=== PATIENT | male | born 1950 | race Caucasian/White ===

== ENCOUNTER 2018-07-16 13:58 | Emergency (ER) | payer OTHER, SELFPAY ==
[2018-07-16 13:59] VITALS: BP 136/82; PULSE 79; RESP 18; TEMP 36.8; O2SAT 98; BMI 31.0
--- NOTE | 2018-07-16 14:22 | RAD_ITS ---
STUDY: X-RAY - LEFT HAND REASON FOR EXAM: Male, 67 years old. History of trauma. TECHNIQUE: 3 view(s) of the hand. COMPARISON: None. FINDINGS: Normal radiocarpal articulation. Normal distal radioulnar joint. Normal visualized carpal bones. Normal carpal articulations Normal carpometacarpal articulation of the thumb. Normal second through fifth carpometacarpal joints. Normal metacarpi. Normal metacarpophalangeal joint of the thumb. Normal interphalangeal joint of the thumb. Normal proximal and distal phalanges of the thumb. Normal metacarpophalangeal joints of the second through fifth fingers. Flexion deformity of the distal interphalangeal joint of the third digit. Comminuted nondisplaced fracture of the distal aspect of the proximal phalanx of the index finger. Comminuted fracture involving the mid and distal portion of the proximal phalanx of the third digit. Diffuse soft tissue swelling. RAD/Hand Min 3 Views IMPRESSION: Comment fracture of distal portion of the proximal phalanx of the index finger as well as the mid and distal portion of the proximal phalanx of the third digit. Flexion deformity of the distal interphalangeal joint of the third digit. Diffuse soft tissue swelling. Electronically Signed: Puma Zafar MD at 14:59 EST Tel [phone], Service support ,
[2018-07-16] MEDS: Diphth,Pertuss(Acell),Tet Vac 0.5 ML Vial IM (15:00)
[2018-07-16] MEDS: HYDROmorphone 1 MG/ML Syringe SC (15:00)
--- NOTE | 2018-07-16 15:45 | ED.RN ---
ERNESTO CALLED FROM PT' EMPLOYER. 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 STATES THEY WILL SEND A RIDE TO AUDIO EXPERIENCE EXPERT PT FROM ED WHEN READY. 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
--- NOTE | 2018-07-16 16:03 | ED.VISSUMM ---
- ER Visit Summary Date of Service: 07/16/18 Chief Complaint: Left hand injury History of Present Illness: The patient is a 67 M who was at work today. He is right-hand dominant. A 500 pound rack fell on his left hand. He complains of pain and lacerations to his left second and third digits. Unsure of tetanus status. Physical Examination: Patient has diffuse edema to his left second and third digits with deformity to the third digit. Two-point discrimination intact distally and capillary refill intact distally. He has 2 lacerations to his index finger, 1 cm laceration to the radial side of the proximal phalanx and a 2 cm laceration to the ulnar side of his proximal phalanx. There appears to be an extensor tendon injury and the ulnar side appears to be an open fracture. Test Results: X-rays show comminuted fractures of the second and third digits. Please see separate report. Emergency Department Course and Treatment: Tetanus updated. The patient was treated with Dilaudid. Digital block performed of the second and third digits. Third digit was able to be reduced somewhat and does not seem to be entrapped. Second digit lacerations were repaired with simple interrupted sutures, 3 on the radial side, and 4 on the ulnar side. He will need surgical care. I discussed with Dr. Castano felt that the patient would be better served at a tertiary care center. I spoke with Dr. Desai. He advised that he would like the patient seen today and recommend that the patient go to [facility]. Patient will be transferred by ambulance. He was accepted by the ED physician. He was treated with ancef. Treatment Plan: As above Disposition: Transfer Impression: 1. Left second and third digit fractures 2. Left second digit lacerations, 3 cm total This note was generated with [employer] dictation software. It may contain incorrect words, spelling, and punctuation that were not noted in review of the chart prior to signing ED Disposition - Plan for ED Patient: Chief Complaint: Laceration Instructions: ED Laceration Hand Prescriptions: Oxycodone HCl/Acetaminophen [Percocet 5/325] 1 tab PO Q6H PRN PRN 3 Days #12 tab PRN Reason: Pain Cephalexin [Keflex] 500 mg PO Q6 #40 cap Referrals: Raymond Mancera Jr., MD [NON-STAFF] -
--- NOTE | 2018-07-16 16:08 | ED.DEP ---
ED Disposition - Plan for ED Patient: Chief Complaint: Laceration Instructions: ED Laceration Hand Prescriptions: Oxycodone HCl/Acetaminophen [Percocet 5/325] 1 tab PO Q6H PRN PRN 3 Days #12 tab PRN Reason: Pain Cephalexin [Keflex] 500 mg PO Q6 #40 cap Referrals: Raymond Mancera Jr., MD [NON-STAFF] -
--- NOTE | 2018-07-16 16:32 | NURSING ---
ACCEPTED AT [facility]
--- NOTE | 2018-07-16 16:34 | ED.RN ---
Called [facility] to verify testing to be done on ED r/t pt being transferred. Rep is going to call after finishing test at [facility] to verify if pt is still in department.
--- NOTE | 2018-07-16 16:43 | NURSING ---
CALLED [facility], ETA IS 10 TO 15 MIN
[2018-07-16] MEDS: Cefazolin 1 GM/50 ML BAG IV (17:07)
[2018-07-16 17:08] VITALS: BP 140/88; PULSE 74; RESP 16
== END 2018-07-16 17:26 | disposition short-term general hospital (02) ==
LOC: ED 14:41
PROVIDERS: Emergency Provider Emergency Medicine; Family Provider Family Medicine; PCP Family Medicine
DX: S62.633A Displaced fracture of distal phalanx of left middle finger, initial encounter for closed fracture (principal); S62.623A Displaced fracture of middle phalanx of left middle finger, initial encounter for closed fracture; S62.631A Displaced fracture of distal phalanx of left index finger, initial encounter for closed fracture; S61.211A Laceration without foreign body of left index finger without damage to nail, initial encounter; S66.301A Unspecified injury of extensor muscle, fascia and tendon of left index finger at wrist and hand level, initial encounter; W22.8XXA Striking against or struck by other objects, initial encounter; Y93.9 Activity, unspecified; Y92.9 Unspecified place or not applicable; Z87.891 Personal history of nicotine dependence
CPT/HCPCS: 12002; 26725; 73130; 90715; 96365; 96372; 99285; J7050; A4216

== ENCOUNTER → 2018-09-08 13:09 | Outpatient (CLI) | payer OTHER, SELFPAY ==
[2018-09-08 14:07] LABS: Erythrocyte Sedimentation Rate 26 mm/hr (0-20)
[2018-09-08 14:10] LABS: Absolute Lymphocyte Count 2.08 X10^3/ul (0.83-4.51); Absolute Neutrophil Count 3.3 X10^3/uL (2.0-7.7); Basophil# 0.03 X10^3/uL; Basophil% 0.5 % (0-1); Eosinophils% 3.1 % (0-5); Hematocrit 41.2 % (40-54); Hemoglobin 13.7 g/dl (13.0-16.5); Lymphocyte # 2.08 X10^3/ul (4.0); Lymphocyte % 32.2 % (19-41); Mean Corp Hgb Conc 33.3 g/gl (32-36); Mean Corpuscular Hgb 29.5 pg (27.0-32.0); Mean Corpuscular Volume 88.6 fL (80-94); Mean Platelet Vol. 8.7 fl (6.2-12.0); Monocyte# 0.85 X10^3/uL; Monocyte% 13.2 % (0-10); Neutrophil # 3.28 X10^3/uL (2.7-7.7); Neutrophil % 50.8 % (47-70); POSITIVE COUNT NO; POSITIVE DIFFERENTIAL NO; POSITIVE MORPHOLOGY NO; Platelet Count 235 K/mm3 (150-450); RBC Distribution Width CV 14.2 % (11.6-14.6); RBC Distribution Width SD 45.9 fl (35.1-43.9); Red Blood Count 4.65 M/mm3 (4.6-6.2); White Blood Count 6.5 K/mm3 (4.4-11.0)
== END ==
PROVIDERS: Family Provider Family Medicine; PCP Family Medicine; Referring Provider Orthopaedic Surgery Hand Surgery; Visit Provider Orthopaedic Surgery Hand Surgery
DX: S62.611B Displaced fracture of proximal phalanx of left index finger, initial encounter for open fracture (principal)
CPT/HCPCS: 36415; 85025; 85652; 86140

== ENCOUNTER 2018-12-30 19:29 | Inpatient (IN) | payer MEDICARE, SELFPAY ==
[2018-12-30] VITALS (9 sets, daily range): BP systolic 109–136; BP diastolic 67–92; PULSE 75–101; RESP 14–22; TEMP 36.6–37.2; O2SAT 94–98; BMI 37.9; BMI 37.5; BMI 37.6
--- NOTE | 2018-12-30 19:54 | EKG12_ITS ---
Test Reason : Blood Pressure : / mmHG Vent. Rate : 089 BPM Atrial Rate : 089 BPM P-R Int : 172 ms QRS Dur : 084 ms QT Int : 370 ms P-R-T Axes : 052 053 038 degrees QTc Int : 450 ms Normal sinus rhythm Normal ECG Confirmed by ELVIA LEWIS, XUAN ([id number]), manager editorial IRENE HUBBARD ([id number]) on 01/01/2019 10:44:55 AM Referred By: Florecita Dockery Confirmed By:RADHA GAN MD
--- NOTE | 2018-12-30 19:56 | RAD_ITS ---
STUDY: X-RAY CHEST REASON FOR EXAM: Male, 68 years old. Chest pain TECHNIQUE: Frontal view of the chest COMPARISON: None. FINDINGS: The lungs are clear. There are no pleural effusions. There is no pneumothorax. The heart is normal in size. The visualized osseous structures are within normal limits. RAD/Chest 1 View (Portable) IMPRESSION: No acute thoracic pathology. Electronically Signed: [facility], at 20:14 EDT Tel , Service support ,
--- NOTE | 2018-12-30 20:00 | US_ITS ---
STUDY: VENOUS DOPPLER ULTRASOUND - BILATERAL LOWER EXTREMITIES REASON FOR EXAM: Male, 68 years old. Pain and swelling TECHNIQUE: Ultrasound evaluation of the deep vein system to include batres-scale imaging and compression was performed. Batres-scale imaging and Doppler sonographic evaluation, including duplex spectral analysis and qualitative color flow sonography, was performed. COMPARISON: None. FINDINGS: RIGHT LEG Common Femoral Vein: Occlusive thrombus Common Femoral Vein/Greater Saphenous Junction: Occlusive thrombus Deep Femoral Vein: Occlusive thrombus Superficial Femoral Proximal: Occlusive thrombus Superficial Femoral Middle: Occlusive thrombus Superficial Femoral Distal: Occlusive thrombus Popliteal Vein: Occlusive thrombus Posterior Tibial Vein: Normal compression, spontaneity and augmentation. Normal color Doppler. The visualized soft tissues are unremarkable. LEFT LEG Common Femoral Vein: Normal compression, spontaneity and augmentation. Normal color Doppler. Common Femoral Vein/Greater Saphenous Junction: Normal compression, spontaneity and augmentation. Normal color Doppler. Deep Femoral Vein: Normal compression, spontaneity and augmentation. Normal color Doppler. Superficial Femoral Proximal: Normal compression, spontaneity and augmentation. Normal color Doppler. Superficial Femoral Middle: Normal compression, spontaneity and augmentation. Normal color Doppler. Superficial Femoral Distal: Normal compression, spontaneity and augmentation. Normal color Doppler. Popliteal Vein: Normal compression, spontaneity and augmentation. Normal color Doppler. Posterior Tibial Vein: Normal compression, spontaneity and augmentation. Normal color Doppler. The visualized soft tissues are unremarkable. US/Venous Duplex Imag/Mikhail Extrem IMPRESSION: Occlusive thrombus in the right common femoral vein, femoral vein and popliteal vein. No evidence of deep venous thrombosis in the left lower extremity. N.B. : The above information has been verbally conveyed by [facility] to Boston Craft MD, on 12/30/2018 21:31:25 (ET). Electronically Signed: [facility], at 21:16 EDT Tel , Service support ,
[2018-12-30 20:14] LABS: Absolute Lymphocyte Count 1.99 X10^3/ul (0.83-4.51); Absolute Neutrophil Count 3.8 X10^3/uL (2.0-7.7); Basophil# 0.04 X10^3/uL; Basophil% 0.6 % (0-1); Eosinophil# 0.23 X10^3/uL; Eosinophils% 3.5 % (0-5); Hematocrit 38.2 % (40-54); Hemoglobin 12.8 g/dl (13.0-16.5); Lymphocyte # 1.99 X10^3/ul (4.0); Lymphocyte % 30.2 % (19-41); Mean Corp Hgb Conc 33.5 g/gl (32-36); Mean Corpuscular Hgb 29.4 pg (27.0-32.0); Mean Corpuscular Volume 87.8 fL (80-94); Mean Platelet Vol. 8.4 fl (6.2-12.0); Monocyte# 0.56 X10^3/uL; Monocyte% 8.5 % (0-10); Neutrophil # 3.77 X10^3/uL (2.7-7.7); Platelet Count 264 K/mm3 (150-450); RBC Distribution Width CV 14.6 % (11.6-14.6); RBC Distribution Width SD 47.1 fl (35.1-43.9); Red Blood Count 4.35 M/mm3 (4.6-6.2); White Blood Count 6.6 K/mm3 (4.4-11.0)
[2018-12-30 20:16] LABS: POSITIVE COUNT NO; POSITIVE DIFFERENTIAL NO; POSITIVE MORPHOLOGY NO; Prothrombin Time (Protime)PT. 13.4 SECONDS (11.7-14.9)
[2018-12-30 20:24] LABS: ALB/GLOB Ratio 0.9 RATIO (0.9-2.4); AST(SGOT) 13 U/L (15-37); Alanine Aminotransfer ALT/SGPT 13 U/L (16-61); Albumin, Serum 3.5 g/dL (3.2-5.0); Alkaline Phosphatase 78 U/L (45-117); Anion Gap 7 (5-15); BUN 24 mg/dL (7-18); BUN/Creat Ratio 16.8 RATIO (10-20); Calcium,Total 8.6 mg/dL (8.5-10.1); Chloride 106 mmol/L (98-107); Creatinine, Serum 1.43 mg/dL (0.70-1.30); EST Glomerular Filtration Rate 52 mL/min (>60); Est Glom Filt Rate - Afr Amer 63 mL/min (>60); Estimated Creatinine Clearance 47.17 ml/min; Globulin 3.8 g/dL (2.2-4.2); Glucose 152 mg/dL (74-106); Potassium 3.5 mmol/L (3.5-5.1); Protein, Total 7.3 g/dL (6.4-8.2); Sodium Level 139 mmol/L (136-145)
[2018-12-30 20:43] LABS: Red Blood Cells-Urine 0 SEEN /hpf (0-5); White Blood Cells 0 SEEN /hpf (0-5)
[2018-12-30 20:49] LABS: BNP,B-Type NATRIURETIC PEPTIDE 19.1 pg/mL (0-100)
[2018-12-30 20:58] LABS: Color, Urine Yellow (Yellow); Glucose, Dipstick Normal (Normal); Ketone-Dipstick 5 mg/dl (Negative); Leukocyte Esterase-Dipstick Negative /ul (Negative); Nitrite-Dipstick Negative (Negative); Occult Blood-Urine Negative /ul (Negative); Protein-Dipstick 15 mg/dl (Negative); Specific Gravity, Urine 1.025 (1.002-1.030); Urine Bilirubin Dipstick Negative (Negative); Urine Clarity Sl. Cloudy (Clear); Urine Urobilinogen 1 mg/dl (Normal)
[2018-12-30 21:00] LABS: Lactic Acid 1.5 mmol/L (0.4-2.0)
--- NOTE | 2018-12-30 21:01 | CT_ITS ---
STUDY: CTA CHEST REASON FOR EXAM: Male, 68 years old. Shortness of breath. Leg swelling. RADIATION DOSAGE (If Supplied By Facility): CTDIvol = ( 16.04 ) mGy, DLP = ( 532.23 ) mGycm TECHNIQUE: The examination was performed with the intravenous administration of 100ML Catheter Injection Isovue 370. Post-processing of the angiographic images was performed, with multiplanar reformation and 3D reconstruction. Individualized dose optimization techniques were used for this CT. COMPARISON: None. FINDINGS: There are acute segmental and subsegmental pulmonary emboli in the right upper lobe and lower lobe and segmental pulmonary emboli in the left lower lobe. There is a trace right pleural effusion with overlying atelectasis. There are no focal infiltrates. There is no evidence of thoracic aortic aneurysm or dissection. The heart and pericardium are within normal limits. There are coronary artery calcifications noted. Images through the upper abdomen demonstrate a calcified cystic lesion arising from the upper pole of the left kidney which isn't fully evaluated on this study. There are no destructive osseous lesions. CT/CTA Chest W/WO Contrast IMPRESSION: Acute segmental and subsegmental pulmonary emboli in the right upper lobe and right lower lobe. Segmental pulmonary emboli in the left lower lobe. Trace right pleural effusion with overlying atelectasis. Otherwise, clear lungs. No evidence of thoracic aortic aneurysm or dissection. Coronary artery disease. Calcified cystic lesion arising from the upper pole of the left kidney which is not fully evaluated on this study. A follow-up renal protocol ultrasound, CT or MRI is recommended. Electronically Signed: [facility], at 21:34 EDT Tel , Service support ,
[2018-12-30 21:14] LABS: Bacteria 1+ /hpf (None Seen); Mucous, Urine 2+ /hpf (<or=2+); Squamous Epithelial Cells - UA 0-5 SEEN /hpf (0-5)
[2018-12-30] MEDS: Heparin Injection (Vial) 5,000 UNIT/ML VIAL 4000 UNIT IV (22:37)
[2018-12-30] MEDS: HEPARIN/D5w 25,000 UNITS 25,000 UNITS/250 ML IV.SOLN. 10 UNITS IV (22:37)
--- NOTE | 2018-12-30 23:11 | HP.PCM_ITS ---
Problem List (1) Acute deep vein thrombosis (DVT) of right lower extremity Status: Acute (2) Acute bilateral pulmonary emboli Status: Acute History of Present Illness Date of Admission: 12/30/18 Chief Complaint: Right leg swelling, redness, shortness of breath. The patient is a 68 year old M with no significant past medical history presented to the emergency room because of right leg swelling at the end this is less shortness of breath. The patient is hard of hearing and I got the information from his . According to patient's , patient has been having right leg swelling that started around 2 weeks ago, has been slowly progressing, started from the thigh down to the right leg and foot, has been increasing since then, associated with increasing right leg redness and without aggravating or relieving factors. The patient had a couple of surgeries for fracture right hand phalanx in July and September, and he has been off work since then. His mentioned that he has been sitting most of his time at home and not ambulating. Also, patient complains of exertional shortness of breath over the last several days, comes on with moderate exertion, aggravated by activity, relieved by rest. He denied chest pain, hypertension, dizziness or lightheadedness. He denies history of blood clots in the past. He denies family history of blood clots. No personal or family history of cancer. In the emergency department, his vital signs were stable. His routine blood work was marked for BUN of 24 and creatinine of 1.43. Blood glucose was 152. Lactic acid was normal. LFT was normal. EKG revealed normal sinus rhythm, normal MS, normal QRS, normal QTC, no acute ischemic changes. Troponin was negative as well as BNP. Chest x-ray showed no acute findings. Venous Doppler of the right leg revealed occlusive thrombus of the right common femoral, femoral and popliteal veins. No evidence of DVT on the left lower extremity. CTA chest revealed acute segmental and subsegmental PEs on the right upper lobe, right lower lobe and left lower lobe. He is being admitted for acute extensive DVT of the right lower extremity and bilateral pulmonary emboli. Past Medical History Allergies No Known Allergies Allergy (Verified 12/30/18 19:29) Home Medications: Ambulatory Orders Medication Instructions Recorded NK 12/30/18 Surgical History: - - Recent surgeries for fractured right hand phalanx. Psychiatric History: No pertinent psych hx Lives: Spouse/ Significant Other Smoking Status: Former smoker Alcohol: None Drugs: None - *Family History Maternal History Items: No pertinent history Paternal History Items: No pertinent history Review of Systems Constitutional: Reports: Weakness. Denies: Anorexia, Chills, Fever Eyes: Denies: Blurred vision, Double vision, Drainage, Redness HEENT: Denies: Difficulty Hearing, Dysphasia, Ear Pain, Eye Pain, Nasal Congestion, Sore Throat Cardiovascular: Denies: Chest Pain, Claudication, Chest Pressure, Chest Tightness, Heaviness, Light Headedness, Palpitations, Paroxysmal Noc. Dyspnea, Syncope Respiratory: Reports: Shortness of Breath, Shortness of breath upon exertion. Denies: Cough, Pleuritic Pain, Sputum production, Wheezing Gastrointestinal: Denies: Abdominal Pain, Constipation, Diarrhea, Nausea, Vomiting Genitourinary: Denies: Dysuria, Frequency, Hematuria Musculoskeletal: Denies: Arm Pain, Back Pain, Foot Pain Skin: Denies: Dryness, Rash Neurological: Denies: Balance problems, Double vision, Change in Speech, Slurred speech, Confusion, Headaches, Incoordination, Numbness Psychiatric: Denies: Anxiety, Depression Endocrine: Denies: Change in Body Habitus, Polydipsia, Polyuria VTE Information - Inpt Only VTE Present on Admission: No VTE Mechan Device Prophylaxis: None VTE Pharm Prophylaxis ordered?: No Patient Problems: Active and Suspected Problems Acute deep vein thrombosis (DVT) of right lower extremity (Acute) Acute bilateral pulmonary emboli (Acute) - Physical Exam General: Alert, Oriented x3, Cooperative, No apparent distress, - - Hard of hearing. HEENT: Atraumatic, PERRLA, EOMI, Normocephalic Oral: Moist Mucosa, No Gingival or Mucosal Lesions/ Ulcerations Neck: Supple, No JVD, Negative Carotid Bruits, Trachea Midline, Thyroid Normal Size and Texture Lungs: Clear to auscultation, Normal air movement, No rhonchi, No wheeze, No rales, Diminished Cardiovascular: Regular rate, Regular Rhythm, Normal S1, Normal S2, PMI Normal Abdomen: Bowel Sounds Present, Soft, Non Tender, Non-Distended, No Hepato- splenomegaly, Obese Extremities: No clubbing, No cyanosis, - - Right lower extremity: Extensive swelling and erythema extending from the right mid thigh down to the right foot, no open wounds or drainage. Mild nonpitting edema on the left lower extremity. Skin: No rashes, No breakdown Lymphatic: No Cervical, Supraclavicular, or Inguinal Adenopathy Neurological: Cranial nerves II-XII grossly intact, Motor Exam 5/5 strength throughout Psych/Mental Status: Normal Affect, Appropriate, Alert and oriented to time, place, person, mood and affect Vital Signs Temp Pulse Resp BP Pulse Ox 98.9 F 75 14 123/72 H 97 12/30/18 23:08 12/30/18 23:08 12/30/18 23:08 12/30/18 23:08 12/30/18 23:08 Oxygen Delivery Method Room Air Weight: 249 lb 9.012 oz Body Mass Index (BMI) 37.9 Laboratory Tests Past 24 Hrs 12/30/18 12/30/18 12/30/18 19:45 19:45 19:45 WBC 6.6 RBC 4.35 L Hgb 12.8 L Hct 38.2 L MCV 87.8 MCH 29.4 MCHC 33.5 RDW 14.6 RDW Differential 47.1 H Plt Count 264 MPV 8.4 Immature Gran % (Auto) 0.200 Neut % (Auto) 57.0 Lymph % (Auto) 30.2 [place] % (Auto) 8.5 Eos % (Auto) 3.5 Baso % (Auto) 0.6 Absolute Neuts (auto) 3.8 Absolute Lymphs (auto) 1.99 Total Counted Not Reportable PT 13.4 INR 1.0 APTT 29.0 Sodium Potassium Chloride Carbon Dioxide Anion Gap BUN Creatinine Estim Creat Clear Calc Est GFR (MDRD) Af Amer Est GFR (MDRD) Non-Af BUN/Creatinine Ratio Glucose Lactic Acid Calcium Total Bilirubin AST ALT Alkaline Phosphatase Troponin I B-Natriuretic Peptide 19.1 Total Protein Albumin Globulin Albumin/Globulin Ratio Urine Color Urine Clarity Urine pH Ur Specific Braman Urine Protein Urine Glucose (UA) Urine Ketones Urine Occult Blood Urine Nitrite Urine Bilirubin Urine Urobilinogen Ur Leukocyte Esterase Urine RBC Urine WBC Ur Squamous Epith Cells Urine Bacteria Urine Mucus 12/30/18 12/30/18 12/30/18 19:45 20:15 20:35 WBC RBC Hgb Hct MCV MCH MCHC RDW RDW Differential Plt Count MPV Immature Gran % (Auto) Neut % (Auto) Lymph % (Auto) [place] % (Auto) Eos % (Auto) Baso % (Auto) Absolute Neuts (auto) Absolute Lymphs (auto) Total Counted PT INR APTT Sodium 139 Potassium 3.5 Chloride 106 Carbon Dioxide 26.0 Anion Gap 7 BUN 24 H Creatinine 1.43 H Estim Creat Clear Calc 47.17 Est GFR (MDRD) Af Amer 63 Est GFR (MDRD) Non-Af 52 L BUN/Creatinine Ratio 16.8 Glucose 152 H Lactic Acid 1.5 Calcium 8.6 Total Bilirubin 0.40 AST 13 L ALT 13 L Alkaline Phosphatase 78 Troponin I B-Natriuretic Peptide Total Protein 7.3 Albumin 3.5 Globulin 3.8 Albumin/Globulin Ratio 0.9 Urine Color Yellow Urine Clarity Sl. Cloudy Urine pH 5.0 Ur Specific Braman 1.025 Urine Protein 15 H Urine Glucose (UA) Normal Urine Ketones 5 H Urine Occult Blood Negative Urine Nitrite Negative Urine Bilirubin Negative Urine Urobilinogen 1 H Ur Leukocyte Esterase Negative Urine RBC 0 SEEN Urine WBC 0 SEEN Ur Squamous Epith Cells 0-5 SEEN Urine Bacteria 1+ Urine Mucus 2+ 12/30/18 22:18 WBC RBC Hgb Hct MCV MCH MCHC RDW RDW Differential Plt Count MPV Immature Gran % (Auto) Neut % (Auto) Lymph % (Auto) [place] % (Auto) Eos % (Auto) Baso % (Auto) Absolute Neuts (auto) Absolute Lymphs (auto) Total Counted PT INR APTT Sodium Potassium Chloride Carbon Dioxide Anion Gap BUN Creatinine Estim Creat Clear Calc Est GFR (MDRD) Af Amer Est GFR (MDRD) Non-Af BUN/Creatinine Ratio Glucose Lactic Acid Calcium Total Bilirubin AST ALT Alkaline Phosphatase Troponin I < 0.015 B-Natriuretic Peptide Total Protein Albumin Globulin Albumin/Globulin Ratio Urine Color Urine Clarity Urine pH Ur Specific Braman Urine Protein Urine Glucose (UA) Urine Ketones Urine Occult Blood Urine Nitrite Urine Bilirubin Urine Urobilinogen Ur Leukocyte Esterase Urine RBC Urine WBC Ur Squamous Epith Cells Urine Bacteria Urine Mucus Clinical Impression(s) from Imaging Studies Chest X-Ray 12/30/18 19:56 IMPRESSION: No acute thoracic pathology. Electronically Signed: [facility], at 20:14 EDT Tel , Service support , Venous Duplex 12/30/18 20:00 IMPRESSION: Occlusive thrombus in the right common femoral vein, femoral vein and popliteal vein. No evidence of deep venous thrombosis in the left lower extremity. N.B. : The above information has been verbally conveyed by [facility] to Boston Craft MD, on 12/30/2018 21:31:25 (ET). Electronically Signed: [facility], at 21:16 EDT Tel , Service support , Chest CTA 12/30/18 21:01 IMPRESSION: Acute segmental and subsegmental pulmonary emboli in the right upper lobe and right lower lobe. Segmental pulmonary emboli in the left lower lobe. Trace right pleural effusion with overlying atelectasis. Otherwise, clear lungs. No evidence of thoracic aortic aneurysm or dissection. Coronary artery disease. Calcified cystic lesion arising from the upper pole of the left kidney which is not fully evaluated on this study. A follow-up renal protocol ultrasound, CT or MRI is recommended. Electronically Signed: [facility], at 21:34 EDT Tel , Service support , Assessment/Plan All Active Problems Acute deep vein thrombosis (DVT) of right lower extremity (Acute) Acute bilateral pulmonary emboli (Acute) This is a 68 years old male patient presented to the emergency room because of 2 weeks history of progressive right lower extremity swelling and redness as well as exertional shortness of breath, found to have extensive right lower extremity DVT as well as bilateral pulmonary emboli and he is being admitted for treatment. #1 extensive right lower extremity DVTs: Involving right common femoral, right femoral and popliteal veins. This is probably provoked due to immobility and inactivity. Patient had recent surgeries on right hand phalanx, has been off work for several months. He denied personal or family history of clotting problems. He denied recent abdominal surgeries or cancer. Plan: Admit to PCU, cardiac monitoring, start IV heparin drip, hypercoagulable work-up, repeat CBC, CMP, pro time and INR tomorrow morning, albuterol as needed, PT OT evaluation and treatment. His right lower extremity is extensively edematous and erythematous but I doubt any acute cellulitis. Patient is afebrile, no leukocytosis. Blood and urine culture sent, will follow. Lactic acid was normal. #2 acute bilateral segmental and subsegmental right upper/right lower and left lower lobes pulmonary emboli: CTA chest reviewed. Plan as above, IV heparin drip, 2D echocardiogram. EKG and troponin were unremarkable. #3 renal insufficiency: Unknown if this is acute or chronic. Admission creatinine is 1.43. Plan: IV fluids, input output chart, repeat BMP tomorrow morning. #4 DVT prophylaxis: IV heparin drip as above. This note was generated with [employer] dictation software. It may contain incorrect words, spelling, and punctuation that were not noted in checking the note before signing. Code Visit Inpatient E&M: 00695 Init Hosp L3
--- NOTE | 2018-12-30 23:22 | ED.DCSUM_ITS ---
- ER Visit Summary Date of Service: 12/30/18 Chief Complaint: Right leg swelling History of Present Illness: The patient is a 68 M with right leg swelling for days. It is red and swollen and painful. The swelling has progressed such that he has difficulty walking on it. He never had this before. He is not sure what brought it on. Nothing seems to make it worse. He has been having some associated shortness of breath. Denies chest pain or hemoptysis. Denies fevers. Denies any history of DVT or PE. His brother had blood clots. Denies any recent surgery. Denies any history of cancer. Physical Examination: Afebrile and vital signs unremarkable. Alert and oriented. No acute distress. Heart regular. Lungs clear. Right lower extremity is diffusely edematous and tender to palpation. He is neurovascular intact distally. Skin is slightly erythematous and warm to the touch. Test Results: EKG showed sinus rhythm at a rate of 89. Hemoglobin 12.8, BUN 24, creatinine 1.43. Coags normal. Troponin normal. BNP normal. Urinalysis normal. Chest x-ray normal. Ultrasound showed a DVT from the right common femoral to the popliteal artery. Subsequent CTA showed bilateral subsegmental and segmental emboli worse on the right. He also had a left renal cyst which was not completely evaluated and will require follow-up. Emergency Department Course and Treatment: Patient presents with right leg pain, swelling, redness, and warmth. He has a family history of DVT and PE. He is also having PE symptoms. Work-up showed a large DVT. Subsequently, a CTA was ordered and showed bilateral pulmonary emboli. Patient does not have evidence of shock or heart strain. He is stable. Patient was discussed with the hospitalist. Started on heparin. He has no history of bleeding or risk factors for bleeding. Patient will be admitted to PCU for further care. Treatment Plan: As above Disposition: Admission Impression: 1. Bilateral pulmonary emboli 2. Right lower extremity DVT 3. Left renal cyst This note was generated with [employer] software. It may contain incorrect words, spelling, and punctuation that were not noted in review of the chart prior to signing
--- NOTE | 2018-12-30 23:33 | ECHOD_ITS ---
Reason For Study: EMBOLI Procedure This was a 2D Doppler, Color Flow transthoracic echocardiogram. The study was technically difficult. Exam performed portable in patient room. Order states do not use contrast. Left Ventricle Normal size and thickness. The estimated ejection fraction is 55 %. Normal diastology for age. No regional wall motion abnormalities noted. Right Ventricle Normal RV size. Normal systolic function. Atria Normal left atrium. Normal right atrium. No doppler evidence for ASD. Mitral Valve There is no mitral valve stenosis. No mitral valve insufficiency. Tricuspid Valve There is no tricuspid stenosis. Trivial tricuspid valve insufficiency. Pulmonary artery systolic pressure is 35 mmHg. Aortic Valve Trisinus/trileaflet aortic valve. There is no aortic stenosis. No aortic valve insufficiency. Pulmonic Valve There is no pulmonic valvular stenosis. No pulmonic valve insufficiency. Great Vessels Normal aortic root. Pericardium/Pleural No pericardial effusion. MMode/2D Measurements & Calculations LVIDd: 4.5 cm IVSd: 0.91 cm Ao root diam: 3.6 cm LVIDs: 2.7 cm LVPWd: 0.95 cm RVDd: 3.5 cm FS: 39.7 % LAV(MOD-bp): 72.4 ml LA A4 area: 21.9 cm2 LA dimension(2D): 3.8 cm LAV(MOD-bp) Indexed: 32.3 ml/m2 LAV(MOD-sp2): 72.3 ml LAV(MOD-sp4): 63.6 ml RA A4 area: 18.9 cm2 Time Measurements MV dec time: 0.22 sec Doppler Measurements & Calculations MV E max kings: 84.0 cm/sec Lat Peak E' Kings: 12.2 cm/sec Med Peak E' Kings: 11.0 cm/sec MV A max kings: 77.7 cm/sec E/E' lat: 6.9 E/E' med: 7.6 MV E/A: 1.1 Ao V2 max: 124.9 cm/sec LV V1 max: 102.2 cm/sec PA V2 max: 70.0 cm/sec Ao max P.2 mmHg LV V1 max P.2 mmHg TR max kings: 266.4 cm/sec TR max P.4 mmHg Interpretation Summary The estimated ejection fraction is 55 %. Normal diastology for age. Pulmonary artery systolic pressure is 35 mmHg. Normal RV size. Normal systolic function. Ordering Physician: Florecita Dockery Referring Physician: Roderick Stephen Performed By: Tonia Givens RDCS, RVT
[2018-12-31] VITALS (9 sets, daily range): BP systolic 96–121; BP diastolic 63–67; PULSE 69–81; RESP 17–20; TEMP 36.6–36.8; O2SAT 93–96
[2018-12-31 00:20] LABS: Thyroid Stim Hormone (TSH) 4.05 uIU/mL (0.358-3.74)
[2018-12-31] MEDS: 0.9% Normal Saline 1,000 ML 75 ML IV (01:00)
[2018-12-31 05:26] LABS: Absolute Lymphocyte Count 1.85 X10^3/ul (0.83-4.51); Absolute Neutrophil Count 2.5 X10^3/uL (2.0-7.7); Basophil# 0.02 X10^3/uL; Basophil% 0.4 % (0-1); Eosinophil# 0.24 X10^3/uL; Eosinophils% 4.5 % (0-5); Hematocrit 35.2 % (40-54); Hemoglobin 11.5 g/dl (13.0-16.5); Lymphocyte # 1.85 X10^3/ul (4.0); Mean Corp Hgb Conc 32.7 g/gl (32-36); Mean Corpuscular Hgb 28.5 pg (27.0-32.0); Mean Corpuscular Volume 87.3 fL (80-94); Mean Platelet Vol. 8.2 fl (6.2-12.0); Monocyte# 0.62 X10^3/uL; Monocyte% 11.7 % (0-10); Neutrophil # 2.54 X10^3/uL (2.7-7.7); Neutrophil % 48.2 % (47-70); Platelet Count 253 K/mm3 (150-450); RBC Distribution Width CV 14.7 % (11.6-14.6); RBC Distribution Width SD 45.6 fl (35.1-43.9); Red Blood Count 4.03 M/mm3 (4.6-6.2); White Blood Count 5.3 K/mm3 (4.4-11.0)
[2018-12-31 05:28] LABS: POSITIVE COUNT NO; POSITIVE DIFFERENTIAL NO; POSITIVE MORPHOLOGY NO
[2018-12-31 05:30] LABS: International Normalized Ratio 1.1; Prothrombin Time (Protime)PT. 14.2 SECONDS (11.7-14.9)
[2018-12-31 05:31] LABS: Partial Thromboplast Time 40.9 Seconds (24.1-36.2)
[2018-12-31 05:35] LABS: ALB/GLOB Ratio 0.9 RATIO (0.9-2.4); AST(SGOT) 13 U/L (15-37); Alanine Aminotransfer ALT/SGPT 14 U/L (16-61); Alkaline Phosphatase 67 U/L (45-117); Anion Gap 7 (5-15); BUN 20 mg/dL (7-18); BUN/Creat Ratio 17.2 RATIO (10-20); Chloride 107 mmol/L (98-107); Creatinine, Serum 1.16 mg/dL (0.70-1.30); EST Glomerular Filtration Rate 66 mL/min (>60); Est Glom Filt Rate - Afr Amer 80 mL/min (>60); Estimated Creatinine Clearance 58.15 ml/min; Globulin 3.2 g/dL (2.2-4.2); Glucose 97 mg/dL (74-106); Potassium 3.7 mmol/L (3.5-5.1); Protein, Total 6.2 g/dL (6.4-8.2); Sodium Level 142 mmol/L (136-145)
[2018-12-31] MEDS: Heparin Injection (Vial) 5,000 UNIT/ML VIAL IV (06:00)
[2018-12-31 07:13] LABS: Hemoglobin A1c 6.1 % (4.2-6.3)
[2018-12-31 09:12] LABS: T4 Free Direct 1.09 ng/dL (0.76-1.46)
--- NOTE | 2018-12-31 11:18 | CASEMGMT ---
Per admission questions patient wanted more information on advance directives. SW spoke with patient and he said he did ask, but decided he did not want documents. Ludmila BO MSW
[2018-12-31 11:36] LABS: Partial Thromboplast Time 44.2 Seconds (24.1-36.2)
--- NOTE | 2018-12-31 11:41 | DCINST_ITS ---
- Discharge Diagnoses Current Active Problems: Current Active and Chronic Problems Acute deep vein thrombosis (DVT) of right lower extremity (Acute) Acute bilateral pulmonary emboli (Acute) You will use the following diet at home:: Calorie/Carbohydrate Controlled (specify 1200, 1400, etc) - 2000 adi / day, avoid carbs. Follow veneer splicer recommendations. Your food should be the consistency of: Regular Your liquids should be the consistency of: Regular/Thin Discharge Activity: Return to Normal Activity Allergies/Adverse Reactions: Allergies No Known Allergies Allergy (Verified 12/30/18 19:29) Medications to take at Discharge Apixaban [Eliquis] 5 mg PO BID #70 tab 12/31/18 The following prescriptions were given: Apixaban [Eliquis] 5 mg PO BID #70 tab Transmission Status: Received by [facility]/pharmacy #[id number] Primary Care Physician: Roderick Stephen DO [Primary Care Provider] - Please follow up with your Primary Care Physician in: 1-2 weeks Test Results: Test results from this visit will be discussed in further detail at your follow- up appointment, if applicable. Proposed Discharge Date: 12/31/18
--- NOTE | 2018-12-31 12:10 | CASEMGMT ---
Addendum entered by Waldo Ratliff 12/31/18 14:34: Eliquis e-script has been sent to [facility] in [place]. Call placed to [facility] and spoke with a pharmacist. Eliquis savings card applied. 1st 30 days will be free. Thereafter, cost of Eliquis will be $519 for 30-day supply. REJI Alvarenga, made aware and states pt will need to follow up with his PCP to discuss other options. To room to talk with pt. He was made aware 1st 30-day supply of Eliquis will be free but then will be $519 thereafter for 30-day supply. Pt instructed to address this with Dr Stephen when he goes in for the follow-up appt to discuss other affordable options. Pt made aware of importance to take Eliquis as instructed. Pt voices understanding. Call placed to Dr Stephen's office and message left on nurses line to inform them of [id number] cost for Eliquis and that pt will need to discuss other alternatives when he sees Dr Stephen @ his follow-up appt. Talia from Dr Stephen's office called back and confirmed she did receive the message. Home oxygen testing has been completed. Pt does not qualify for Home O2 at this time. REJI Alvarenga, made aware. Original Note: RN CM CREATIVE/ART DIRECTOR CM to room to meet with patient for initial transition planning/care coordination assessment. RN MISTY introduced self and role at [facility]. Pt voices understanding and consents to assessment at this time. Pt resting in bed in no distress at this time. Pt is A/O at this time and answers all questions appropriately. Care providers, pharmacy, and demographics verified/updated at this time. PCP: Roderick Stephen Specialists: Urmila Machuca in [place] d/t hand injury. Preferred Pharmacy: [facility] Insurance: [facility] Prescription Benefit: none. Per REJI Alvarenga, plans are for pt to discharge home on Eliquis. Living Will/HPOA: Pt does not currently have LW/HCPOA and declines info at this time. Pt made aware that he can contact as an out-pt and make appt in the future if he decides he would like to talk with someone about this or would like to utilize [facility] social work for advanced directive completion. Given Fiscal Clerk Rac card with information and contact number. Pt expresses understanding. LNOK: Living Arrangements: Lives in one-story condo w/basement. States does not need to go to the basement. Independent with personal ADL's. manages his appts and medications and does laundry, cooking, and cleaning. Pt states he manages the finances. Pt states his is able to help if needed. Transportation: Pt states drives self and states no transportation concerns at this time. will drive him home on d/c. DME: Denies using any DME and denies needs. HHC/SNF: No hx either. States goes to [facility] in [place] for therapy on his hand, but has only been going about once a week now. Denies needs for HHC and no needs identified. Pt wishes to return home and states has no concerns with going home at time of discharge. Pt states he is currently employed @ [employer]. He states he was full-time until July until he had an injury on the job where he broke his hand/fingers and has been off until recently. He states he had only been back to work for about 7 days before this hospitalization. He goes to [facility] in [place] for this injury. CM to follow for home oxygen needs and any further discharge planning/needs. Pt voices no further concerns/needs at this time. Advised pt to ask for CM if any further questions/concerns/needs arise. Voices understanding. PLAN: Home w/spousal support and discharge plans in place. CM to follow for O2 needs and Eliquis. Ron RICHTER RN CM
--- NOTE | 2018-12-31 14:28 | DS.PCM_ITS ---
<Stuart Kam - Last Filed: 12/31/18 14:28> Discharge Date and Diagnosis - Problem List Patient Problems: Active and Suspected Problems Acute deep vein thrombosis (DVT) of right lower extremity (Acute) Acute bilateral pulmonary emboli (Acute) Date of Admission: 12/30/18 Date of Discharge: 12/31/18 - Primary Discharge Diagnosis Active and Suspected Problems Acute deep vein thrombosis (DVT) of right lower extremity (Acute) Acute bilateral pulmonary emboli (Acute) Hospital Course and Treatment Imaging Results: RAD/Chest 1 View (Portable) IMPRESSION: No acute thoracic pathology. US/Venous Duplex Imag/Mikhail Extrem IMPRESSION: Occlusive thrombus in the right common femoral vein, femoral vein and popliteal vein. No evidence of deep venous thrombosis in the left lower extremity. CT/CTA Chest W/WO Contrast IMPRESSION: Acute segmental and subsegmental pulmonary emboli in the right upper lobe and right lower lobe. Segmental pulmonary emboli in the left lower lobe. Trace right pleural effusion with overlying atelectasis. Otherwise, clear lungs. No evidence of thoracic aortic aneurysm or dissection. Coronary artery disease. Calcified cystic lesion arising from the upper pole of the left kidney which is not fully evaluated on this study. A follow-up renal protocol ultrasound, CT or MRI is recommended. Echo: Interpretation Summary The estimated ejection fraction is 55 %. Normal diastology for age. Pulmonary artery systolic pressure is 35 mmHg. Normal RV size. Normal systolic function. Operations: None Procedures: 2-D Echocardiogram Summary of Care Provided: Hospital Course: The patient is a 68 year old M with pmhx of obesity who presented to the ER with RLE swelling and SOB. He had a venous ultrasound showing RLE DVTs. CTA chest then showed extensive bilateral PEs. He was placed on heparin and placed in the PCU on tele. No events were seen on tele overnight. He did have some exertional dyspnea, however he had no hypoxia at rest or with exertion. An echo was obtained and was unremarkable with results as above. He was placed on eliquis and discharged home in stable condition. Hypercoag panel is ordered and pending. He needs to follow up with his PCP in 1-2 weeks. Also of note he had some hyperglycemia. A1C was 6.1 c/w prediabetes. Navigation Teacher was consulted and dietary control recommended. He will need f/u with his PCP regarding this and need his A1C rechecked to see if dietary control is working. This patient was seen by Stuart Kam PA-C under the supervision of Doctor Dalton. [] Patient Problems: Active and Suspected Problems Acute deep vein thrombosis (DVT) of right lower extremity (Acute) Acute bilateral pulmonary emboli (Acute) - Physical Exam General: Alert, Oriented x3, Cooperative HEENT: Atraumatic, PERRLA, EOMI, Normocephalic, - - hard of hearing Neck: Supple, No JVD, Negative Carotid Bruits Lungs: Clear to auscultation, Normal air movement Cardiovascular: Regular rate, No murmurs Abdomen: Bowel Sounds Present, Soft, Non Tender, Obese Extremities: No edema, Capillary Refill Less than 3 Seconds Skin: No rashes, No breakdown Musculoskeletal: No Tenderness to Palpation of Joints or Extremities Neurological: Cranial nerves II-XII grossly intact Psych/Mental Status: Normal Affect, Appropriate, Alert and oriented to time, place, person, mood and affect Vital Signs Temp Pulse Resp BP Pulse Ox 98.2 F 76 17 96/64 94 12/31/18 09:43 12/31/18 11:06 12/31/18 09:43 12/31/18 09:43 12/31/18 13:10 Oxygen Flow Rate (L/min) [At 0 REST on Room Air] Oxygen Flow Rate (L/min) [ 0 AMBULATING on Room Air] Oxygen Delivery Method Room Air Weight: 247 lb 2.211 oz Body Mass Index (BMI) 37.5 Intake and Output for Last 24 Hours 12/29/18 12/30/18 12/31/18 23:59 23:59 23:59 Intake Total 2119 Balance 2119 Laboratory Tests Past 24 Hrs 12/30/18 12/30/18 12/30/18 19:45 19:45 19:45 WBC 6.6 RBC 4.35 L Hgb 12.8 L Hct 38.2 L MCV 87.8 MCH 29.4 MCHC 33.5 RDW 14.6 RDW Differential 47.1 H Plt Count 264 MPV 8.4 Immature Gran % (Auto) 0.200 Neut % (Auto) 57.0 Lymph % (Auto) 30.2 [place] % (Auto) 8.5 Eos % (Auto) 3.5 Baso % (Auto) 0.6 Absolute Neuts (auto) 3.8 Absolute Lymphs (auto) 1.99 Total Counted Not Reportable PT 13.4 INR 1.0 APTT 29.0 Protein C Antigen Prot C Funct Activity Functional Protein S Free Protein S Total Protein S Func Antithrombin III Factor V Leiden Mutat Sodium Potassium Chloride Carbon Dioxide Anion Gap BUN Creatinine Estim Creat Clear Calc Est GFR (MDRD) Af Amer Est GFR (MDRD) Non-Af BUN/Creatinine Ratio Glucose Hemoglobin A1c Lactic Acid Calcium Total Bilirubin AST ALT Alkaline Phosphatase Troponin I B-Natriuretic Peptide 19.1 Total Protein Albumin Globulin Albumin/Globulin Ratio TSH Free T4 Urine Color Urine Clarity Urine pH Ur Specific [place] Urine Protein Urine Glucose (UA) Urine Ketones Urine Occult Blood Urine Nitrite Urine Bilirubin Urine Urobilinogen Ur Leukocyte Esterase Urine RBC Urine WBC Ur Squamous Epith Cells Urine Bacteria Urine Mucus Anti-Cardiolipin IgG Ab Anti-Cardiolipin IgM Ab 12/30/18 12/30/18 12/30/18 19:45 20:15 20:35 WBC RBC Hgb Hct MCV MCH MCHC RDW RDW Differential Plt Count MPV Immature Gran % (Auto) Neut % (Auto) Lymph % (Auto) [place] % (Auto) Eos % (Auto) Baso % (Auto) Absolute Neuts (auto) Absolute Lymphs (auto) Total Counted PT INR APTT Protein C Antigen Prot C Funct Activity Functional Protein S Free Protein S Total Protein S Func Antithrombin III Factor V Leiden Mutat Sodium 139 Potassium 3.5 Chloride 106 Carbon Dioxide 26.0 Anion Gap 7 BUN 24 H Creatinine 1.43 H Estim Creat Clear Calc 47.17 Est GFR (MDRD) Af Amer 63 Est GFR (MDRD) Non-Af 52 L BUN/Creatinine Ratio 16.8 Glucose 152 H Hemoglobin A1c Lactic Acid 1.5 Calcium 8.6 Total Bilirubin 0.40 AST 13 L ALT 13 L Alkaline Phosphatase 78 Troponin I B-Natriuretic Peptide Total Protein 7.3 Albumin 3.5 Globulin 3.8 Albumin/Globulin Ratio 0.9 TSH Free T4 Urine Color Yellow Urine Clarity Sl. Cloudy Urine pH 5.0 Ur Specific [place] 1.025 Urine Protein 15 H Urine Glucose (UA) Normal Urine Ketones 5 H Urine Occult Blood Negative Urine Nitrite Negative Urine Bilirubin Negative Urine Urobilinogen 1 H Ur Leukocyte Esterase Negative Urine RBC 0 SEEN Urine WBC 0 SEEN Ur Squamous Epith Cells 0-5 SEEN Urine Bacteria 1+ Urine Mucus 2+ Anti-Cardiolipin IgG Ab Anti-Cardiolipin IgM Ab 12/30/18 12/30/18 12/31/18 22:18 22:18 05:00 WBC RBC Hgb Hct MCV MCH MCHC RDW RDW Differential Plt Count MPV Immature Gran % (Auto) Neut % (Auto) Lymph % (Auto) [place] % (Auto) Eos % (Auto) Baso % (Auto) Absolute Neuts (auto) Absolute Lymphs (auto) Total Counted PT INR APTT Protein C Antigen Prot C Funct Activity Functional Protein S Free Protein S Total Protein S Func Antithrombin III Factor V Leiden Mutat Sodium Potassium Chloride Carbon Dioxide Anion Gap BUN Creatinine Estim Creat Clear Calc Est GFR (MDRD) Af Amer Est GFR (MDRD) Non-Af BUN/Creatinine Ratio Glucose Hemoglobin A1c 6.1 Lactic Acid Calcium Total Bilirubin AST ALT Alkaline Phosphatase Troponin I < 0.015 B-Natriuretic Peptide Total Protein Albumin Globulin Albumin/Globulin Ratio TSH 4.05 H Free T4 Urine Color Urine Clarity Urine pH Ur Specific [place] Urine Protein Urine Glucose (UA) Urine Ketones Urine Occult Blood Urine Nitrite Urine Bilirubin Urine Urobilinogen Ur Leukocyte Esterase Urine RBC Urine WBC Ur Squamous Epith Cells Urine Bacteria Urine Mucus Anti-Cardiolipin IgG Ab Anti-Cardiolipin IgM Ab 12/31/18 12/31/18 12/31/18 05:00 05:00 05:00 WBC 5.3 RBC 4.03 L Hgb 11.5 L Hct 35.2 L MCV 87.3 MCH 28.5 MCHC 32.7 RDW 14.7 H RDW Differential 45.6 H Plt Count 253 MPV 8.2 Immature Gran % (Auto) 0.200 Neut % (Auto) 48.2 Lymph % (Auto) 35.0 [place] % (Auto) 11.7 H Eos % (Auto) 4.5 Baso % (Auto) 0.4 Absolute Neuts (auto) 2.5 Absolute Lymphs (auto) 1.85 Total Counted Not Reportable PT INR APTT Protein C Antigen Pending Prot C Funct Activity Pending Functional Protein S Pending Free Protein S Pending Total Protein S Pending Func Antithrombin III Pending Factor V Leiden Mutat Pending Sodium 142 Potassium 3.7 Chloride 107 Carbon Dioxide 28.0 Anion Gap 7 BUN 20 H Creatinine 1.16 Estim Creat Clear Calc 58.15 Est GFR (MDRD) Af Amer 80 Est GFR (MDRD) Non-Af 66 BUN/Creatinine Ratio 17.2 Glucose 97 Hemoglobin A1c Lactic Acid Calcium 8.0 L Total Bilirubin 0.40 AST 13 L ALT 14 L Alkaline Phosphatase 67 Troponin I B-Natriuretic Peptide Total Protein 6.2 L Albumin 3.0 L Globulin 3.2 Albumin/Globulin Ratio 0.9 TSH Free T4 Urine Color Urine Clarity Urine pH Ur Specific [place] Urine Protein Urine Glucose (UA) Urine Ketones Urine Occult Blood Urine Nitrite Urine Bilirubin Urine Urobilinogen Ur Leukocyte Esterase Urine RBC Urine WBC Ur Squamous Epith Cells Urine Bacteria Urine Mucus Anti-Cardiolipin IgG Ab Pending Anti-Cardiolipin IgM Ab Pending 12/31/18 12/31/18 12/31/18 05:00 05:00 11:24 WBC RBC Hgb Hct MCV MCH MCHC RDW RDW Differential Plt Count MPV Immature Gran % (Auto) Neut % (Auto) Lymph % (Auto) [place] % (Auto) Eos % (Auto) Baso % (Auto) Absolute Neuts (auto) Absolute Lymphs (auto) Total Counted PT 14.2 INR 1.1 APTT 40.9 H 44.2 H Protein C Antigen Prot C Funct Activity Functional Protein S Free Protein S Total Protein S Func Antithrombin III Factor V Leiden Mutat Sodium Potassium Chloride Carbon Dioxide Anion Gap BUN Creatinine Estim Creat Clear Calc Est GFR (MDRD) Af Amer Est GFR (MDRD) Non-Af BUN/Creatinine Ratio Glucose Hemoglobin A1c Lactic Acid Calcium Total Bilirubin AST ALT Alkaline Phosphatase Troponin I B-Natriuretic Peptide Total Protein Albumin Globulin Albumin/Globulin Ratio TSH Free T4 1.09 Urine Color Urine Clarity Urine pH Ur Specific [place] Urine Protein Urine Glucose (UA) Urine Ketones Urine Occult Blood Urine Nitrite Urine Bilirubin Urine Urobilinogen Ur Leukocyte Esterase Urine RBC Urine WBC Ur Squamous Epith Cells Urine Bacteria Urine Mucus Anti-Cardiolipin IgG Ab Anti-Cardiolipin IgM Ab Discharge Diet: 2000 mg Sodium Diet Discharge Activity: Return to Normal Activity Home Medications: Medications to take at Discharge Apixaban [Eliquis] 5 mg PO BID #74 tab 12/31/18 Following Prescrptions Were Given to Patient: Apixaban [Eliquis] 5 mg PO BID #74 tab Transmission Status: Received by [id number] Primary Care Physician: Roderick Stephen DO [Primary Care Provider] - Please follow up with your Primary Care Physician in: 1-2 weeks Disposition: Home Minutes spent on discharge:: 35 Patient Condition:: Stable Medical Necessity - Tobacco Use Smoking Status: Former smoker Meaningful Use Info Meaningful Use Diagnoses (Choose all that apply): VTE - VTE Anticoag overlap given w/in hospital stay or rx'd at dc?: No Pt receive overlap for 5 days?: No Reason overlap not ordered, prescribed, or given for 5 days: Procedure Not Indicated <Cholo Hoffman - Last Filed: 12/31/18 16:09> Discharge Date and Diagnosis - Primary Discharge Diagnosis Active and Suspected Problems Acute deep vein thrombosis (DVT) of right lower extremity (Acute) Acute bilateral pulmonary emboli (Acute) Hospital Course and Treatment Summary of Care Provided: This patient was seen in conjunction with Stuart MENDOZA. I have independently interviewed and examined the patient and reviewed pertinent history, examination findings, laboratory and plan of management. I have reviewed the note and agree with the documented findings with the few additional points. In brief, patient is admitted for right lower extremity swelling, edema, leg pain and shortness of breath. Patient venous Doppler shows occlusive thrombus in right common femoral, femoral vein and popliteal vein. No evidence of DVT in left lower extremity. Patient had CTPA which showed extensive bilateral PE. Patient was admitted in PCU on heparin drip started in ED. Echo was obtained and reported no tricuspid stenosis with trivial TR, RVSP 35 mmHg. Right ventricle normal in size and systolic function. Normal LV size with EF 55%. Normal diastolic. No pulmonic insufficiency. BNP and troponin normal. Patient is discharged on Eliquis 10 mg twice daily for 1 week and she is to 5 mg twice daily as PE/DVT protocol. Patient lab evaluation suggestive of prediabetes with hyperglycemia. A1c 6.1. Patient BUN and creatinine also elevated 24/1.43 from prerenal azotemia from hypovolemia. BUN/creatinine improved to 20/1.1. Does not meet the criteria for acute kidney injury. Discharge medication reconciliation done. Discharge follow-up instructions completed. Discharge process discussed with the patient and all questions were answered to patient's satisfaction. Follow-up PCP in about 2 weeks. Patient needs further TSH and free T4 after 3 to 4 weeks as TSH was elevated, 4.0 but free T4 normal. Total time spent, exact 35 minutes on discharge meds reconciliation, examination, review of imaging and blood test and discussion with the patient on follow-up instructions. I have discussed my assessment with Stuart MENDOZA and orders have been reviewed. [] Patient was admitted as inpatient but was discharged because of sooner recovery than expected. Laboratory Results 12/30/18 19:45: B-Natriuretic Peptide 19.1 12/30/18 19:45: WBC 6.6, RBC 4.35 L, Hgb 12.8 L, Hct 38.2 L, MCV 87.8, MCH 29.4, MCHC 33.5, RDW 14.6, RDW Differential 47.1 H, Plt Count 264, MPV 8.4, Immature Gran % (Auto) 0.200, Neut % (Auto) 57.0, Lymph % (Auto) 30.2, [place] % (Auto) 8.5, Eos % (Auto) 3.5, Baso % (Auto) 0.6, Absolute Neuts (auto) 3.8, Absolute Lymphs (auto) 1.99, Total Counted Not Reportable 12/30/18 19:45: PT 13.4, INR 1.0, APTT 29.0 12/30/18 19:45: Sodium 139, Potassium 3.5, Chloride 106, Carbon Dioxide 26.0, Anion Gap 7, BUN 24 H, Creatinine 1.43 H, Estim Creat Clear Calc 47.17, Est GFR (MDRD) Af Amer 63, Est GFR (MDRD) Non-Af 52 L, BUN/Creatinine Ratio 16.8, Glucose 152 H, Calcium 8.6, Total Bilirubin 0.40, AST 13 L, ALT 13 L, Alkaline Phosphatase 78, Total Protein 7.3, Albumin 3.5, Globulin 3.8, Albumin/Globulin Ratio 0.9 12/30/18 20:15: Lactic Acid 1.5 12/30/18 20:35: Urine Color Yellow, Urine Clarity Sl. Cloudy, Urine pH 5.0, Ur Specific [place] 1.025, Urine Protein 15 H, Urine Glucose (UA) Normal, Urine Ketones 5 H, Urine Occult Blood Negative, Urine Nitrite Negative, Urine Bilirubin Negative, Urine Urobilinogen 1 H, Ur Leukocyte Esterase Negative, Urine RBC 0 SEEN, Urine WBC 0 SEEN, Ur Squamous Epith Cells 0-5 SEEN, Urine Bacteria 1+, Urine Mucus 2+ 12/30/18 22:18: Troponin I < 0.015 12/30/18 22:18: TSH 4.05 H 12/31/18 05:00: Hemoglobin A1c 6.1 12/31/18 05:00: Protein C Antigen Pending, Prot C Funct Activity Pending, Functional Protein S Pending, Free Protein S Pending, Total Protein S Pending, Func Antithrombin III Pending, Factor V Leiden Mutat Pending, Anti-Cardiolipin IgG Ab Pending, Anti-Cardiolipin IgM Ab Pending 12/31/18 05:00: WBC 5.3, RBC 4.03 L, Hgb 11.5 L, Hct 35.2 L, MCV 87.3, MCH 28.5, MCHC 32.7, RDW 14.7 H, RDW Differential 45.6 H, Plt Count 253, MPV 8.2, Immature Gran % (Auto) 0.200, Neut % (Auto) 48.2, Lymph % (Auto) 35.0, [place] % (Auto) 11.7 H, Eos % (Auto) 4.5, Baso % (Auto) 0.4, Absolute Neuts (auto) 2.5, Absolute Lymphs (auto) 1.85, Total Counted Not Reportable 12/31/18 05:00: Sodium 142, Potassium 3.7, Chloride 107, Carbon Dioxide 28.0, Anion Gap 7, BUN 20 H, Creatinine 1.16, Estim Creat Clear Calc 58.15, Est GFR (MDRD) Af Amer 80, Est GFR (MDRD) Non-Af 66, BUN/Creatinine Ratio 17.2, Glucose 97, Calcium 8.0 L, Total Bilirubin 0.40, AST 13 L, ALT 14 L, Alkaline Phosphatase 67, Total Protein 6.2 L, Albumin 3.0 L, Globulin 3.2, Albumin/Globulin Ratio 0.9 12/31/18 05:00: PT 14.2, INR 1.1, APTT 40.9 H 12/31/18 05:00: Free T4 1.09 12/31/18 11:24: APTT 44.2 H Subjective: Seen and examined. Patient denies previous history of DVT or PE. Has bilateral lower extremity edema and mild tenderness. Bilateral PE found on CTPA. Patient is very hard of hearing. - Physical Exam General: Alert, Oriented x3, Cooperative HEENT: - - hard of hearing Hearing impairment. Neck: Supple, No JVD, Negative Carotid Bruits Lungs: Clear to auscultation, Normal air movement, No rhonchi, No wheeze, No rales Cardiovascular: Regular rate, Regular Rhythm, Normal S1, Normal S2, No murmurs Abdomen: Bowel Sounds Present, Soft, Non Tender, Obese Extremities: Capillary Refill Less than 3 Seconds, Edema - Bilateral lower extremity edema from thigh downwards. Mild tenderness present., Tenderness - Tenderness of both calves and thighs secondary to DVT Skin: No rashes, No breakdown Musculoskeletal: No Tenderness to Palpation of Joints or Extremities, Arthritic Changes Lymphatic: No Cervical, Supraclavicular, or Inguinal Adenopathy Neurological: Cranial nerves II-XII grossly intact, Deep Tendon Reflexes 2+/4 and Symmetrical, Neuro grossly intact Psych/Mental Status: Normal Affect, Appropriate Vital Signs Temp Pulse Resp BP Pulse Ox 97.9 F 78 19 H 121/63 H 96 12/31/18 15:39 12/31/18 15:39 12/31/18 15:39 12/31/18 15:39 12/31/18 15:39 Oxygen Flow Rate (L/min) [At 0 REST on Room Air] Oxygen Flow Rate (L/min) [ 0 AMBULATING on Room Air] Oxygen Delivery Method Room Air Weight: 247 lb 2.211 oz Body Mass Index (BMI) 37.5 Intake and Output for Last 24 Hours 12/29/18 12/30/18 12/31/18 23:59 23:59 23:59 Intake Total 2119 Balance 2119 Laboratory Tests Past 24 Hrs 12/30/18 12/30/18 12/30/18 19:45 19:45 19:45 WBC 6.6 RBC 4.35 L Hgb 12.8 L Hct 38.2 L MCV 87.8 MCH 29.4 MCHC 33.5 RDW 14.6 RDW Differential 47.1 H Plt Count 264 MPV 8.4 Immature Gran % (Auto) 0.200 Neut % (Auto) 57.0 Lymph % (Auto) 30.2 [place] % (Auto) 8.5 Eos % (Auto) 3.5 Baso % (Auto) 0.6 Absolute Neuts (auto) 3.8 Absolute Lymphs (auto) 1.99 Total Counted Not Reportable PT 13.4 INR 1.0 APTT 29.0 Protein C Antigen Prot C Funct Activity Functional Protein S Free Protein S Total Protein S Func Antithrombin III Factor V Leiden Mutat Sodium Potassium Chloride Carbon Dioxide Anion Gap BUN Creatinine Estim Creat Clear Calc Est GFR (MDRD) Af Amer Est GFR (MDRD) Non-Af BUN/Creatinine Ratio Glucose Hemoglobin A1c Lactic Acid Calcium Total Bilirubin AST ALT Alkaline Phosphatase Troponin I B-Natriuretic Peptide 19.1 Total Protein Albumin Globulin Albumin/Globulin Ratio TSH Free T4 Urine Color Urine Clarity Urine pH Ur Specific [place] Urine Protein Urine Glucose (UA) Urine Ketones Urine Occult Blood Urine Nitrite Urine Bilirubin Urine Urobilinogen Ur Leukocyte Esterase Urine RBC Urine WBC Ur Squamous Epith Cells Urine Bacteria Urine Mucus Anti-Cardiolipin IgG Ab Anti-Cardiolipin IgM Ab 12/30/18 12/30/18 12/30/18 19:45 20:15 20:35 WBC RBC Hgb Hct MCV MCH MCHC RDW RDW Differential Plt Count MPV Immature Gran % (Auto) Neut % (Auto) Lymph % (Auto) [place] % (Auto) Eos % (Auto) Baso % (Auto) Absolute Neuts (auto) Absolute Lymphs (auto) Total Counted PT INR APTT Protein C Antigen Prot C Funct Activity Functional Protein S Free Protein S Total Protein S Func Antithrombin III Factor V Leiden Mutat Sodium 139 Potassium 3.5 Chloride 106 Carbon Dioxide 26.0 Anion Gap 7 BUN 24 H Creatinine 1.43 H Estim Creat Clear Calc 47.17 Est GFR (MDRD) Af Amer 63 Est GFR (MDRD) Non-Af 52 L BUN/Creatinine Ratio 16.8 Glucose 152 H Hemoglobin A1c Lactic Acid 1.5 Calcium 8.6 Total Bilirubin 0.40 AST 13 L ALT 13 L Alkaline Phosphatase 78 Troponin I B-Natriuretic Peptide Total Protein 7.3 Albumin 3.5 Globulin 3.8 Albumin/Globulin Ratio 0.9 TSH Free T4 Urine Color Yellow Urine Clarity Sl. Cloudy Urine pH 5.0 Ur Specific [place] 1.025 Urine Protein 15 H Urine Glucose (UA) Normal Urine Ketones 5 H Urine Occult Blood Negative Urine Nitrite Negative Urine Bilirubin Negative Urine Urobilinogen 1 H Ur Leukocyte Esterase Negative Urine RBC 0 SEEN Urine WBC 0 SEEN Ur Squamous Epith Cells 0-5 SEEN Urine Bacteria 1+ Urine Mucus 2+ Anti-Cardiolipin IgG Ab Anti-Cardiolipin IgM Ab 12/30/18 12/30/18 12/31/18 22:18 22:18 05:00 WBC RBC Hgb Hct MCV MCH MCHC RDW RDW Differential Plt Count MPV Immature Gran % (Auto) Neut % (Auto) Lymph % (Auto) [place] % (Auto) Eos % (Auto) Baso % (Auto) Absolute Neuts (auto) Absolute Lymphs (auto) Total Counted PT INR APTT Protein C Antigen Prot C Funct Activity Functional Protein S Free Protein S Total Protein S Func Antithrombin III Factor V Leiden Mutat Sodium Potassium Chloride Carbon Dioxide Anion Gap BUN Creatinine Estim Creat Clear Calc Est GFR (MDRD) Af Amer Est GFR (MDRD) Non-Af BUN/Creatinine Ratio Glucose Hemoglobin A1c 6.1 Lactic Acid Calcium Total Bilirubin AST ALT Alkaline Phosphatase Troponin I < 0.015 B-Natriuretic Peptide Total Protein Albumin Globulin Albumin/Globulin Ratio TSH 4.05 H Free T4 Urine Color Urine Clarity Urine pH Ur Specific [place] Urine Protein Urine Glucose (UA) Urine Ketones Urine Occult Blood Urine Nitrite Urine Bilirubin Urine Urobilinogen Ur Leukocyte Esterase Urine RBC Urine WBC Ur Squamous Epith Cells Urine Bacteria Urine Mucus Anti-Cardiolipin IgG Ab Anti-Cardiolipin IgM Ab 12/31/18 12/31/18 12/31/18 05:00 05:00 05:00 WBC 5.3 RBC 4.03 L Hgb 11.5 L Hct 35.2 L MCV 87.3 MCH 28.5 MCHC 32.7 RDW 14.7 H RDW Differential 45.6 H Plt Count 253 MPV 8.2 Immature Gran % (Auto) 0.200 Neut % (Auto) 48.2 Lymph % (Auto) 35.0 [place] % (Auto) 11.7 H Eos % (Auto) 4.5 Baso % (Auto) 0.4 Absolute Neuts (auto) 2.5 Absolute Lymphs (auto) 1.85 Total Counted Not Reportable PT INR APTT Protein C Antigen Pending Prot C Funct Activity Pending Functional Protein S Pending Free Protein S Pending Total Protein S Pending Func Antithrombin III Pending Factor V Leiden Mutat Pending Sodium 142 Potassium 3.7 Chloride 107 Carbon Dioxide 28.0 Anion Gap 7 BUN 20 H Creatinine 1.16 Estim Creat Clear Calc 58.15 Est GFR (MDRD) Af Amer 80 Est GFR (MDRD) Non-Af 66 BUN/Creatinine Ratio 17.2 Glucose 97 Hemoglobin A1c Lactic Acid Calcium 8.0 L Total Bilirubin 0.40 AST 13 L ALT 14 L Alkaline Phosphatase 67 Troponin I B-Natriuretic Peptide Total Protein 6.2 L Albumin 3.0 L Globulin 3.2 Albumin/Globulin Ratio 0.9 TSH Free T4 Urine Color Urine Clarity Urine pH Ur Specific [place] Urine Protein Urine Glucose (UA) Urine Ketones Urine Occult Blood Urine Nitrite Urine Bilirubin Urine Urobilinogen Ur Leukocyte Esterase Urine RBC Urine WBC Ur Squamous Epith Cells Urine Bacteria Urine Mucus Anti-Cardiolipin IgG Ab Pending Anti-Cardiolipin IgM Ab Pending 12/31/18 12/31/18 12/31/18 05:00 05:00 11:24 WBC RBC Hgb Hct MCV MCH MCHC RDW RDW Differential Plt Count MPV Immature Gran % (Auto) Neut % (Auto) Lymph % (Auto) [place] % (Auto) Eos % (Auto) Baso % (Auto) Absolute Neuts (auto) Absolute Lymphs (auto) Total Counted PT 14.2 INR 1.1 APTT 40.9 H 44.2 H Protein C Antigen Prot C Funct Activity Functional Protein S Free Protein S Total Protein S Func Antithrombin III Factor V Leiden Mutat Sodium Potassium Chloride Carbon Dioxide Anion Gap BUN Creatinine Estim Creat Clear Calc Est GFR (MDRD) Af Amer Est GFR (MDRD) Non-Af BUN/Creatinine Ratio Glucose Hemoglobin A1c Lactic Acid Calcium Total Bilirubin AST ALT Alkaline Phosphatase Troponin I B-Natriuretic Peptide Total Protein Albumin Globulin Albumin/Globulin Ratio TSH Free T4 1.09 Urine Color Urine Clarity Urine pH Ur Specific [place] Urine Protein Urine Glucose (UA) Urine Ketones Urine Occult Blood Urine Nitrite Urine Bilirubin Urine Urobilinogen Ur Leukocyte Esterase Urine RBC Urine WBC Ur Squamous Epith Cells Urine Bacteria Urine Mucus Anti-Cardiolipin IgG Ab Anti-Cardiolipin IgM Ab Code Visit Inpatient E&M: [id number] Disch Hosp
== END 2018-12-31 17:23 | disposition home or self-care (01) | DRG 299 ==
LOC: ED 20:26 → PCU 23:11
PROVIDERS: Physician Assistant; Admitting Provider Hospitalist; Emergency Provider Emergency Medicine; Family Provider Family Medicine; PCP Family Medicine; Referring Provider Hospitalist; Visit Provider Internal Medicine
DX: I82.411 Acute embolism and thrombosis of right femoral vein (principal); I26.99 Other pulmonary embolism without acute cor pulmonale; I82.431 Acute embolism and thrombosis of right popliteal vein; R73.03 Prediabetes
CPT/HCPCS: 36415; 71045; 71275; 80053; 81001; 81241; 83036; 83605; 83880; 84439; 84443; 84484; 85025; 85300; 85302; 85303; 85305; 85306; 85610; 85730; 86147; 87040; 87086; 87088; 93005; 93306; 93970; 97161; 97166; 97802; 99285; J7030; Q9957; Q9967; A4216

== ENCOUNTER → 2019-02-15 | Outpatient (CLI) | payer MEDICARE, SELFPAY ==
[2019-01-14 09:06] VITALS: BMI 37.5
--- NOTE | 2019-02-15 17:32 | CT_ITS ---
STUDY: CT ABDOMEN WITHOUT CONTRAST REASON FOR EXAM: Male, 68 years old. Kidney mass RADIATION DOSAGE (If Supplied By Facility): CTDIvol = ( 22.94 ) mGy, DLP = ( 813.76 ) mGycm TECHNIQUE: Transaxial images were obtained without intravenous contrast, and oral contrast. Sagittal and coronal images were reconstructed. Individualized dose optimization techniques were used for this CT. COMPARISON: Chest CT December 30, 2018 FINDINGS: The visualized lung bases are unremarkable. The visualized portions of the heart are within normal limits. Normal liver. Normal gallbladder and extrahepatic biliary system. Normal spleen. Normal pancreas. Normal right adrenal. Right kidney No evidence for hydronephrosis or ureteral calculus. Tiny exophytic cortical cyst Left kidney: No evidence for renal obstruction or ureteral calculus. There is a lobulated cortical cyst along the inferomedial cortex. There is a larger left suprarenal mass demonstrating fluid attenuation with multiple septations which appear calcified measuring approximately 8.8 x 8.5 x 9.6 cm which appears to be depressing the upper pole of the kidney and is likely adrenal in origin Normal visualized stomach. Normal small intestine. Normal colon. The appendix is visualized and appears normal. Atherosclerotic changes of the aorta without evidence for aneurysm Normal inferior vena cava. Normal retroperitoneum. Small fat-containing umbilical hernia noted Normal osseous structures. CT/Abdomen without IV Contrast IMPRESSION: Large left suprarenal mass demonstrating multiple wall calcified septations which appears to be adrenal in etiology most likely due to old trauma or inflammatory disease. MRI may be useful for further evaluation as might CT guided biopsy if clinically warranted Electronically Signed: Deniz Carvajal MD at 20:51 EDT , Service support ,
== END | disposition home or self-care (01) ==
LOC: CT 17:31
PROVIDERS: Family Provider Family Medicine; PCP Family Medicine; Referring Provider Family Medicine; Visit Provider Family Medicine
DX: N28.9 Disorder of kidney and ureter, unspecified (principal)
CPT/HCPCS: 74150

== ENCOUNTER → 2020-02-16 11:25 | Outpatient (CLI) | payer MEDICARE, SELFPAY ==
[2020-02-16 10:59] VITALS: BMI 34.7
[2020-02-16 13:08] LABS: ALB/GLOB Ratio 0.8 RATIO (0.9-2.4); AST(SGOT) 12 U/L (15-37); Alanine Aminotransfer ALT/SGPT 17 U/L (16-61); Albumin, Serum 3.5 g/dL (3.2-5.0); Alkaline Phosphatase 82 U/L (45-117); Anion Gap 5 (5-15); BUN 30 mg/dL (7-18); BUN/Creat Ratio 24.8 RATIO (10-20); Calcium,Total 8.7 mg/dL (8.5-10.1); Chloride 101 mmol/L (98-107); Creatinine, Serum 1.21 mg/dL (0.70-1.30); EST Glomerular Filtration Rate 63 mL/min (>60); Est Glom Filt Rate - Afr Amer 76 mL/min (>60); Globulin 4.4 g/dL (2.2-4.2); Glucose 101 mg/dL (74-106); Potassium 3.6 mmol/L (3.5-5.1); Protein, Total 7.9 g/dL (6.4-8.2); Sodium Level 137 mmol/L (136-145)
== END ==
PROVIDERS: PCP Family Medicine; Referring Provider Family Medicine; Visit Provider Family Medicine
DX: R60.0 Localized edema (principal)
CPT/HCPCS: 36415; 80053

== ENCOUNTER 2020-07-30 00:48 | Emergency (ER) | payer MEDICARE, SELFPAY ==
[2020-02-16 10:59] VITALS: BMI 34.7
[2020-07-30 00:51] VITALS: BP 125/67; PULSE 70; RESP 19; TEMP 36.6; O2SAT 94; BMI 33.0
--- NOTE | 2020-07-30 01:03 | EKG12_ITS ---
Test Reason : CP Blood Pressure : / mmHG Vent. Rate : 070 BPM Atrial Rate : 070 BPM P-R Int : 184 ms QRS Dur : 096 ms QT Int : 404 ms P-R-T Axes : 032 052 052 degrees QTc Int : 436 ms Normal sinus rhythm Normal ECG Confirmed by ANA MARIA LEWIS, JATINDER ([id number]), newspaper photo editor IRENE HUBBARD ([id number]) on 08/01/2020 10:37:27 AM Referred By: KIMBERLY Confirmed By:JATINDER RODGERS MD
--- NOTE | 2020-07-30 01:04 | ED.VIS.GEN ---
History of Present Illness Chief Complaint: Chest Pain Informant: Patient Narrative: Patient stated he developed chest discomfort approximately 2 hours ago at rest that lasted for an hour. He describes the pain diffusely in his chest that felt uncomfortable. It was not sharp or dull. It was not pleuritic. He also felt it on his bilateral sides and flanks all the way down to his pelvis. He is never had this in the past. He took 2 ibuprofen and the pain finally went away after an hour. He is having no symptoms currently. Denies any other associated symptoms including shortness of breath nausea or diaphoresis. No history of acute coronary syndrome. Only risk factor for coronary artery disease is a history of smoking for 50 years. Denies any other risk factors. Does have a remote pulmonary embolism 3 years ago and took medications for this for 6 months. He stated it was due to inactivity. The patient stated he is quite active now. He is having no pain or swelling in his legs. No previous stress test of his heart or heart catheterization. - Past Medical History (1) Neck pain on left side Status: Acute Comment: Neck pain was treated with soft tissue manipulation avoiding any high velocity components. (2) Acute bilateral pulmonary emboli Status: Chronic (3) Bilateral tinnitus Status: Chronic (4) Chronic deep vein thrombosis (DVT) Status: Chronic Comment: This patient has no leg pain and no signs of any acute thrombi. He does however have some swelling of the leg as a result of chronic deep vein thrombosis of the year ago, and I do not think that we will go away. (5) Eczema of lower extremity Status: Chronic (6) Hearing problem Status: Chronic Comment: Patient's hearing is getting increasingly worse even with a hearing aid and wearing a mask is not helping very much. (7) Left adrenal mass Status: Chronic (8) Seborrheic keratosis Status: Chronic (9) Swelling of right lower extremity Status: Chronic (10) Left kidney mass Status: Suspected (11) Acute deep vein thrombosis (DVT) of right lower extremity Status: Resolved (12) Blood clot in vein Status: Resolved (13) Bone fracture Status: Resolved Past Medical History - Allergies and Home Meds Allergies/Adverse Reactions: Allergies No Known Allergies Allergy (Verified 08/18/19 10:58) Primary Care Physician: Roderick Stephen DO [Primary Care Provider] - Prior records reviewed: Yes Past Medical History: - - See problem list Surgical History: - - Recent surgeries for fractured right hand phalanx. Smoking Status: Former smoker Alcohol: None Drugs: None - Family History Maternal Family History: Family History (Last Reviewed 08/18/19 @ 11:[address] Roderick Stephen DO) Brother Blood clot in vein Sister Blood clot in vein Family History: Reports: No pertinent history Paternal Family History: Family History (Last Reviewed 08/18/19 @ 11:[address] Roderick Stephen DO) Brother Blood clot in vein Sister Blood clot in vein Family History: Reports: No pertinent history Review of Systems General: Denies: Chills, Fever, Sweats Eyes: Denies: Visual changes - bilaterally, Diplopia ENT: Denies: Rhinorrhea, Sore throat Cardiovascular: Reports: Chest pain. Denies: Palpitations Respiratory: Denies: Dyspnea, Cough, Dyspnea on exertion Gastrointestinal: Denies: Abdominal pain, Nausea, Vomiting, Diarrhea, Melena, Hematochezia Genitourinary: Denies: Dysuria, Hematuria, Frequency Musculoskeletal: Denies: Back pain, Extremity Pain Skin: Denies: Rash, Wounds Neurological: Denies: Headache, Weakness, Numbness Physical Exam Vital Signs/Narrative: Vital Signs Temp Pulse Resp BP Pulse Ox 07/30/20 00:51 98 F 70 19 H 125/67 H 94 General: Well nourished, Well developed, No Acute Distress Head: Normocephalic, Atraumatic Eyes: Perrl, EOMI ENT: Moist mucous membranes, No rhinorrhea Neck: Supple, Nontender Cardiovascular: Regular rate, Regular rhythm, No murmurs Respiratory: No distress, CTA bilaterally, Chest nontender Abdomen: Soft, Nontender, Nondistended, Normal bowel sounds Back: Nontender, Normal Inspection Extremities: Nontender, No edema Skin: Normal color, No rash Neurological: Alert, Oriented x3, Cranial nerves II-XII grossly intact, Normal Strength, Normal Sensation Psychological: Normal affect, Normal Mood Diagnostic/Tx/Re-eval - Medical Decision Making Patient resting comfortably. EKG shows normal sinus rhythm at a rate of 70 with no acute STEMI ischemia or arrhythmia. Lab work and chest x-ray obtained. Patient given oral aspirin. Lab work showed a D-dimer 3.0. Initial troponin negative. CBC showed mild anemia. Electrolytes unremarkable. Creatinine mildly elevated. Patient given IV fluids. His pain never came back in the department. CT angio was obtained due to the elevated D-dimer. CT angios showed atelectasis and chronic changes. No PE or dissection. My interpretation of the chest x-ray shows right-sided fullness. There is deviation of the trachea to the right. Questionable mass. On reevaluation the patient remains pain-free. His heart score is 3 given low suspicion by myself. He gets 2 points for age and 1 point for risk factors. The patient does not want to be admitted. I did offer admission for further cardiac evaluation including stress test. He refused this. He did allow me to do a second troponin which remained -2 hours later. I feel the patient can follow-up with his family doctor. His pain does not come back. He will return if he worsens ED Disposition - Plan for ED Patient: Disposition: Home or Assisted Living Diagnosis: Chest pain at rest Instructions: ED Chest Pain, Uncertain Cause Referrals: Roderick Stephen, [Primary Care Provider] -
[2020-07-30 01:06] VITALS: O2SAT 96
[2020-07-30] MEDS: Aspirin 81 MG TAB.CHEW 324 MG PO (01:10)
--- NOTE | 2020-07-30 01:20 | RAD_ITS ---
HISTORY: chest pain starting last night. EXAM: XR Chest 1 View: COMPARISON: December 30, 2018 FINDINGS: # of images incl. paperwork: 1 Right paratracheal thickening. Deviation of the trachea to the right to a greater degree than on the previous study. Right hilar indistinctness. Volume loss within the right hemithorax. Elevation of the right hemidiaphragm. Left lung is clear Heart is not enlarged. Thoracic spondylosis persists. Shoulder arthritis remains Pulmonary vascularity is distinct. There may be a small right pleural effusions. RAD/Chest 1 View (Portable) IMPRESSION: Right paratracheal thickening, deviation of the trachea to the right. 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 A CT scan of the chest is available for comparison from December 30, 2018. If this is real disease such as neoplasia, then it is new since that study. A follow-up CT scan of the chest may be beneficial to further characterize the nature of this disease. at 0138 Reported and signed by: Rashi Sagastume MD Electronically Signed: Rashi Sagastume MD at 1:37 EST Tel , Service support ,
[2020-07-30 01:30] LABS: Absolute Lymphocyte Count 1.47 X10^3/uL (0.83-4.51); Absolute Neutrophil Count 6.9 X10^3/uL (2.0-7.7); Basophil# 0.04 X10^3/uL; Basophil% 0.4 % (0-1); Eosinophil# 0.27 X10^3/uL; Eosinophils% 2.9 % (0-5); Hematocrit 37.6 % (40-54); Hemoglobin 12.4 g/dL (13.0-16.5); Lymphocyte # 1.47 X10^3/ul (4.0); Lymphocyte % 15.8 % (19-41); Mean Corpuscular Hgb 29.3 pg (27.0-32.0); Mean Corpuscular Volume 88.9 fL (80-94); Mean Platelet Vol. 8.8 fl (6.2-12.0); Monocyte# 0.64 X10^3/uL; Monocyte% 6.9 % (0-10); NRBC Flagged by Analyzer 0 % (0-5); Neutrophil # 6.85 X10^3/uL (2.7-7.7); Neutrophil % 73.6 % (47-70); Platelet Count 272 K/mm3 (150-450); RBC Distribution Width CV 14.5 % (11.6-14.6); RBC Distribution Width SD 46.4 fl (35.1-43.9); Red Blood Count 4.23 M/mm3 (4.6-6.2); White Blood Count 9.3 K/mm3 (4.4-11.0)
[2020-07-30 01:31] LABS: D-Dimer Quantitative (DVT/PE) 3.01 FEU/ug/m (0.27-0.49)
[2020-07-30 01:39] LABS: Anion Gap 7 (5-15); BUN 32 mg/dL (7-18); Calcium,Total 8.8 mg/dL (8.5-10.1); Chloride 105 mmol/L (98-107); Creatinine, Serum 1.39 mg/dL (0.70-1.30); EST Glomerular Filtration Rate 54 mL/min (>60); Est Glom Filt Rate - Afr Amer 65 mL/min (>60); Estimated Creatinine Clearance 48.74 ml/min; Glucose 100 mg/dL (74-106); Potassium 3.8 mmol/L (3.5-5.1); Sodium Level 139 mmol/L (136-145)
[2020-07-30 01:49] VITALS: BP 122/68; PULSE 70; RESP 19; O2SAT 95
--- NOTE | 2020-07-30 02:30 | CT_ITS ---
HISTORY: CHEST PAIN SINCE 1030 THIS EVENING TECHNIQUE: Helically acquired images were obtained of the chest following the intravenous administration of 100 ML of Isovue-370 Iodinated contrast. as per pulmonary angiogram protocol with 2D , without 3-D MIP reconstructions. A radiation dose optimization technique was used for this scan. COMPARISON: Chest x-ray from an hour earlier. Previous CT angiogram of the chest is from December 30, 2018 FINDINGS: # of images incl. paperwork: 1265 The patient was injected in his left arm. With the left arm abducted there is a stenosis that is mild within the left subclavian vein as it courses over the first rib and under the clavicle. Is may be induced mild stenosis. The thyroid gland remains heterogeneous with lesions bilaterally. These are grossly similar to that of the previous study. Absence of significant change in 18 months is consistent with benignity Consolidation versus atelectasis such as round atelectasis is present within the dependent portion of the right lower lobe with some bronchiectasis and chronic bronchitis to the adjacent bronchi. This is new disease.. Tiny right pleural Within the thoracic spinethere is a mild kyphosis with some degenerative disc disease Vertebral body height is fairly well-preserved with minimal wedging at the mid thoracic spine at the apex of the kyphosis Facets are well aligned. No rib lesions are perceived. Heart is not enlarged. Some calcific atherosclerosis to the coronary arteries greatest within the LAD Thoracic aorta is normal. No aneurysms, stenoses, dissections, nor occlusions. No axillary or mediastinal adenopathy. No pulmonary emboli. Calcified tissue within the lumen of the gallbladder likely represents cholelithiasis. Rim calcified cystic mass with some additional calcifications is incompletely imaged in the left upper quadrant. In one dimension as mass measures 11.6 cm, with a central density of 13 Hounsfield units. This lesion was present previously. An additional comparison CT scan is of the abdomen and pelvis from February 15, 2019. This proves to be a complex left adrenal cyst as well demonstrated, some additional left renal cysts. CT/CTA Chest W/WO Contrast IMPRESSION: No pulmonary embolism, aortic aneurysm, or aortic dissection. Round atelectasis within the right lower lobe with tiny right pleural effusion. Evidence perhaps of some bronchitis to the right lower lobe. No pulmonary embolism perceived Left adrenal cystic mass with calcifications that was better demonstrated on the February 15, 2019 CT scan of the abdomen and pelvis and is not significantly changed. Cardiomegaly with coronary artery disease. Individualized dose optimization techniques were used for this CT. at 0256 Reported and signed by: Rashi Sagastume MD Electronically Signed: Rashi Sagastume MD at 2:55 EST Tel , Service support ,
[2020-07-30 02:48] VITALS: BP 117/56; PULSE 73; RESP 16; O2SAT 96
--- NOTE | 2020-07-30 03:34 | ED.RN ---
UNABLE TO REACH VIA LISTED PHONE NUMBER. WILL TRY AGAIN.
== END 2020-07-30 08:14 | disposition home or self-care (01) ==
PROVIDERS: Emergency Provider Emergency Medicine; PCP Family Medicine
DX: R07.89 Other chest pain (principal); D64.9 Anemia, unspecified; Z86.718 Personal history of other venous thrombosis and embolism; Z86.711 Personal history of pulmonary embolism; Z87.891 Personal history of nicotine dependence
CPT/HCPCS: 71045; 71275; 80048; 84484; 85025; 85379; 93005; 96360; 99285; J7030; Q9967; A4216

== ENCOUNTER → 2022-02-06 | Outpatient (CLI) | payer MEDICARE, SELFPAY ==
[2022-02-06 12:07] LABS: Absolute Lymphocyte Count 1.38 X10^3/uL (0.83-4.51); Absolute Neutrophil Count 5.2 X10^3/uL (2.0-7.7); Basophil# 0.06 X10^3/uL; Basophil% 0.8 % (0-1); Eosinophil# 0.16 X10^3/uL; Eosinophils% 2.1 % (0-5); Hemoglobin 12.5 g/dL (13.0-16.5); Lymphocyte # 1.38 X10^3/ul (0.83-4.51); Lymphocyte % 18.3 % (19-41); Mean Corp Hgb Conc 32.9 g/dL (32-36); Mean Corpuscular Hgb 30.1 pg (27.0-32.0); Mean Corpuscular Volume 91.6 fL (80-94); Mean Platelet Vol. 8.7 fl (6.2-12.0); Monocyte# 0.76 X10^3/uL; Monocyte% 10.1 % (0-10); NRBC Flagged by Analyzer 0 % (0-5); Neutrophil # 5.18 X10^3/uL (2.7-7.7); Neutrophil % 68.4 % (47-70); Platelet Count 320 K/mm3 (150-450); RBC Distribution Width CV 14.2 % (11.6-14.6); RBC Distribution Width SD 47.7 fl (35.1-43.9); Red Blood Count 4.15 M/mm3 (4.6-6.2); White Blood Count 7.6 K/mm3 (4.4-11.0)
[2022-02-06 12:24] LABS: ALB/GLOB Ratio 0.8 RATIO (0.9-2.4); AST(SGOT) 15 U/L (15-37); Alanine Aminotransfer ALT/SGPT 15 U/L (16-61); Albumin, Serum 3.4 g/dL (3.2-5.0); Alkaline Phosphatase 71 U/L (45-117); Anion Gap 6 (5-15); BUN 35 mg/dL (7-18); BUN/Creat Ratio 22.3 RATIO (10-20); Calcium,Total 8.6 mg/dL (8.5-10.1); Chloride 104 mmol/L (98-107); Creatinine, Serum 1.57 mg/dL (0.70-1.30); EST Glomerular Filtration Rate 46 mL/min (>60); Est Glom Filt Rate - Afr Amer 56 mL/min (>60); Globulin 4.4 g/dL (2.2-4.2); Glucose 94 mg/dL (74-106); Protein, Total 7.8 g/dL (6.4-8.2); Sodium Level 138 mmol/L (136-145)
== END | disposition home or self-care (01) ==
PROVIDERS: PCP Family Medicine; Visit Provider Physician Assistant
DX: E27.8 Other specified disorders of adrenal gland (principal); S81.801A Unspecified open wound, right lower leg, initial encounter
CPT/HCPCS: 36415; 80053; 85025

== ENCOUNTER → 2022-02-08 | Outpatient (CLI) | payer MEDICARE, SELFPAY ==
--- NOTE | 2022-02-08 13:04 | VDLE_ITS ---
Reason For Study: LEG SWELLING RIGHT LEFT GSV is normal. CFV is compressible, spontaneous, phasic, CFV is compressible, spontaneous, phasic, competent, and demonstrates normal competent and demonstrates normal augmentation. augmentation. FV is partially compressible with bright intraluminal echoes consistent with chronic DVT. POP V is compressible, spontaneous, phasic, competent and demonstrates normal augmentation. T/P Trunk is compressible. PTV is compressible. RT PerV is compressible. Procedure This is a venous duplex using B-mode, color flow and spectral Doppler. Exam performed in department. The exam was diagnostic. A preliminary report was called and/or faxed to Shani Buckley. VL/Venous Duplex US, Unilateral Interpretation Summary Partially compressible right femoral vein with echogenic material consistent wi th chronic deep venous thrombosis. Visualization is difficult so cannot exclude an acute compon ent. Patent and compressible right great saphenous vein Normal flow patterns left common femoral vein Ordering Physician: Shani Buckley Referring Physician: Rob Stephen M.D. Performed By: Yayo Ariza
== END | disposition home or self-care (01) ==
LOC: CVS 13:03
PROVIDERS: PCP Family Medicine; Referring Provider Physician Assistant; Visit Provider Physician Assistant
DX: M79.89 Other specified soft tissue disorders (principal)
CPT/HCPCS: 93971

== ENCOUNTER 2022-02-28 15:09 | Emergency (ER) | payer MEDICARE, SELFPAY ==
[2022-02-28 15:10] VITALS: BP 158/90; PULSE 86; RESP 14; TEMP 36.8; O2SAT 97; BMI 34.0
--- NOTE | 2022-02-28 15:42 | EX.ED.DYSGE1 ---
HPI History of Present Illness Chief Complaint: Lower Extremity Injury Informant: patient and spouse/S.O. Narrative Narrative: Patient sent in from wound care with concerns for reported increasing dyspnea. Patient history of right lower extremity DVT along with bilateral PE back in December 2018. He was on Eliquis for 6 months. Has been dealing with right lower leg ulcer for the past few weeks currently following wound care. PCP office ordered outpatient ultrasound back on February 08 found to have concerns for chronic DVT however reported possible acute component due to poor visualization. He has been seeing wound care since then apparently has been referred to his PCP for management. He states he spoke with the nurse practitioner Stephany who initially ordered ultrasound and discuss options for anticoagulants, however patient states cost of Eliquis was too much being over $400 therefore did not want to be on this. He reports he has been having dyspnea with exertion since his last PE back in December 2018. Denies cough. Denies fevers. Denies any chest tightness. He does have history of chronic kidney disease. He was seen at wound care today with debridement of his wound and healing appropriately per report. He would like more cost effective options. Prior similar symptoms: Yes PFSH PFSH Medical History (Updated 02/28/22 @ 16:[address] Fox Szymanski DO) Blood clot in vein Bone fracture Hearing problem Home Medications triamcinolone acetonide 0.1 % topical ointment 1 applic topical BID #80 grams 01/09/21 [Rx Last Taken Unknown] apixaban 5 mg (74 tabs) tablets in a dose pack (Eliquis DVT-PE Treat 30D Start) 5 mg PO BID #74 tabs 02/28/22 [Rx Last Taken Unknown] warfarin 5 mg tablet 5 mg PO DAILY #30 tabs 02/28/22 [Rx Last Taken Unknown] Allergy/AdvReac Type Severity Reaction Status Date / Time No Known Allergies Allergy Verified 02/28/22 15:13 Family History Brother Blood clot in vein Sister Blood clot in vein Surgical History History of hand surgery Social History Smoking Status: Former smoker alcohol intake: never substance use type: does not use what type of physical activity do you participate in: none ROS ROS ED Constitutional Constitutional ED: Denies chills, fever(s) or sweats Eyes Eyes: Denies change in vision ENT ENT ED: Denies dysphagia or sore throat Cardiovascular Cardiovascular: Denies chest pain, leg edema, palpitations or racing heartbeat Respiratory/Chest Respiratory/Chest: Denies cough, dyspnea or dyspnea on exertion Gastrointestinal Gastrointestinal: Denies abdominal pain, diarrhea, nausea or vomiting Genitourinary Genitourinary ED: Denies dysuria, hematuria or urinary frequency Musculoskeletal Musculoskeletal: Denies back pain, extremity pain or neck pain Integumentary Reports wounds; Denies rash Neurologic Neurologic: Denies headache(s), paresthesias or weakness EXAM Physical Exam Const Vital Signs: 02/28/22 15:10 02/28/22 16:24 Temperature 98.2 F Temperature Source Temporal Pulse Rate 86 71 Respiratory Rate 14 18 Blood Pressure 158/90 H 135/71 H Blood Pressure Mean 112 92 Pulse Ox 97 96 Oxygen Delivery Method Room Air Room Air Positive well nourished and well developed General Appearance ED: well developed and NAD HEENT Reports moist mucous membranes normocephalic and atraumatic Eyes PERRL, EOMs intact bilaterally and conjunctivae normal General Eye ED: Yes normal appearance of both eyes Neck no lymphadenopathy and supple General: Negative for tenderness Chest Wall Chest: Negative for tenderness Resp normal respiratory effort and normal air movement Effort and Inspection: symmetric chest movement; Negative for respiratory distress Cardio regular rate, regular rhythm and no murmurs Peripheral Pulses: pulses 2+ throughout GI normal to inspection, nondistended, normoactive bowel sounds and non-tender Palpation: Negative for guarding or rebound tenderness present Back/Spine no CVA tenderness and no thoracic nor lumbar tenderness Extremity Extremity Narrative: Right lower extremity distal dressing clean, dry intact. There is healing erythema anterior leg. No calf tenderness. Distal pulses intact. General Extremety ED: Negative for edema or tenderness General Extremity: Negative for edema Neuro oriented x3 and no sensory deficits noted Sensorium / Orientation: awake and alert Skin no rashes or lesions noted and no wounds MDM MDM MDM Narrative Medical decision making narrative: Patient sent in here for concern increasing dyspnea however states this is chronic from his last PE. Vitals are stable. Reviewing his ultrasound from 20 days ago chronic component however due to visual obscurity cannot rule out acute component. Recommendation by his primary physicians was to restart anticoagulant. Eliquis was too expensive. He is willing to do a to warfarin, labs were drawn. Creatinine 1.31 improving from previous with chronic kidney disease. Hemoglobin 11.8. Platelets 262. I discussed with his PCP office with nurse practitioner, they know him well, he was initially refusing warfarin with them. However currently he is in agreements. He is given 10 mg dose of Eliquis as a bridge warfarin 5 mg given the ED. A month supply with Eliquis pamphlet. He will follow-up in the office for INR checks. I discussed this with him. He understands and agrees with plan. Lab Data Attestation: I reviewed the patient's lab results. Labs: Laboratory Results - last 24 hr 02/28/22 02/28/22 02/28/22 15:40 15:40 15:40 WBC 7.1 RBC 4.02 L Hgb 11.8 L Hct 35.8 L MCV 89.1 MCH 29.4 MCHC 33.0 RDW Std Deviation 46.0 H RDW Coeff of Noé 14.2 Plt Count 262 MPV 8.5 Immature Gran % (Auto) 0.300 Neut % (Auto) 59.1 Lymph % (Auto) 26.8 Hancock % (Auto) 10.3 H Eos % (Auto) 2.8 Baso % (Auto) 0.7 Absolute Neuts (auto) 4.2 Absolute Lymphs (auto) 1.90 Nucleated RBC % 0 PT 13.0 INR 1.0 APTT 28.2 Sodium 140 Potassium 4.1 Chloride 106 Carbon Dioxide 27.0 Anion Gap 7 BUN 24 H Creatinine 1.31 H Estim Creat Clear Calc 50.97 Est GFR (MDRD) Af Amer 69 Est GFR (MDRD) Non-Af 57 L BUN/Creatinine Ratio 18.3 Glucose 99 Calcium 9.0 Discharge Plan Triage Chief Complaint: Lower Extremity Injury ED Provider: Fox Szymanski Dx/Rx/DC Orders Clinical Impression: Recurrent deep vein thrombosis (DVT) of right lower extremity, Ulcer of right lower leg, CKD (chronic kidney disease) Instructions: ED Deep Vein Thrombosis (DVT) Prescriptions: New Fredi DVT-PE Treat 30D Start 5 mg (74 tabs) tablets,dose pack 5 mg PO BID Qty: 74 0RF warfarin 5 mg tablet 5 mg PO DAILY Qty: 30 0RF No Action triamcinolone acetonide 0.1 % ointment 1 applic TOPICAL BID Qty: 80 2RF Primary Care Provider: Roderick Stephen Referrals: Roderick Stephen, [Primary Care Provider] - 5-7 Days Activity Restrictions/Additional Instructions: Creatinine 1.3 today. INR 1.0. Take warfarin daily starting tomorrow. Take Eliquis as prescribed for bridging at this point, follow-up with Dr. Stephen's office next week for INR checks and adjustments in medications at that time. Disposition Disposition: Home, Self Care Discharge Date/Time: 02/28/22 16:36
[2022-02-28 15:56] LABS: Absolute Neutrophil Count 4.2 X10^3/uL (2.0-7.7); Basophil# 0.05 X10^3/uL; Basophil% 0.7 % (0-1); Eosinophils% 2.8 % (0-5); Hematocrit 35.8 % (40-54); Hemoglobin 11.8 g/dL (13.0-16.5); Lymphocyte % 26.8 % (19-41); Mean Corpuscular Hgb 29.4 pg (27.0-32.0); Mean Corpuscular Volume 89.1 fL (80-94); Mean Platelet Vol. 8.5 fl (6.2-12.0); Monocyte# 0.73 X10^3/uL; Monocyte% 10.3 % (0-10); NRBC Flagged by Analyzer 0 % (0-5); Neutrophil # 4.18 X10^3/uL (2.7-7.7); Neutrophil % 59.1 % (47-70); Platelet Count 262 K/mm3 (150-450); RBC Distribution Width CV 14.2 % (11.6-14.6); Red Blood Count 4.02 M/mm3 (4.6-6.2); White Blood Count 7.1 K/mm3 (4.4-11.0)
[2022-02-28 16:03] LABS: Anion Gap 7 (5-15); BUN 24 mg/dL (7-18); BUN/Creat Ratio 18.3 RATIO (10-20); Chloride 106 mmol/L (98-107); Creatinine, Serum 1.31 mg/dL (0.70-1.30); EST Glomerular Filtration Rate 57 mL/min (>60); Est Glom Filt Rate - Afr Amer 69 mL/min (>60); Estimated Creatinine Clearance 50.97 ml/min; Glucose 99 mg/dL (74-106); Potassium 4.1 mmol/L (3.5-5.1); Sodium Level 140 mmol/L (136-145)
[2022-02-28 16:04] LABS: Partial Thromboplast Time 28.2 Seconds (24.1-36.2)
[2022-02-28 16:24] VITALS: BP 135/71; PULSE 71; RESP 18; O2SAT 96
[2022-02-28] MEDS: APIXABAN 5 MG TABLET 10 MG PO (16:31)
== END 2022-02-28 16:36 | disposition home or self-care (01) ==
PROVIDERS: Emergency Provider Emergency Medicine; PCP Family Medicine; Visit Provider Emergency Medicine
DX: I82.401 Acute embolism and thrombosis of unspecified deep veins of right lower extremity (principal); L97.919 Non-pressure chronic ulcer of unspecified part of right lower leg with unspecified severity; L97.812 Non-pressure chronic ulcer of other part of right lower leg with fat layer exposed; I73.9 Peripheral vascular disease, unspecified; Z86.718 Personal history of other venous thrombosis and embolism; Z86.711 Personal history of pulmonary embolism; Z87.891 Personal history of nicotine dependence; N18.9 Chronic kidney disease, unspecified; M79.89 Other specified soft tissue disorders; M79.604 Pain in right leg; Z79.01 Long term (current) use of anticoagulants; I82.90 Acute embolism and thrombosis of unspecified vein
CPT/HCPCS: 11042; 11045; 80048; 85025; 85610; 85730; 87070; 87075; 87186; 87205; 99283; A4216

== ENCOUNTER 2022-03-06 15:00 | Outpatient (RCR) | payer MEDICARE, SELFPAY ==
[2022-02-13 14:30] VITALS: BP 134/59; PULSE 78; RESP 18; TEMP 36.1
--- NOTE | 2022-02-13 15:55 | HP.PCM_ITS ---
History of Present Illness Date of Service: 02/13/22 Chief Complaint: Non healing right medial leg venous ulcer History of Wound: Patient is a 71 year old male who presents with a right medial leg ulcer that he states started 4-5 weeks ago. He saw his PCP's PA on 02/06/22 and they treated him with Cephalexin and Doxycycline for cellulitis and ordered a venous ultrasound of his right leg to rule out DVT. Patient has not been placing anything on his ulcer. He states he has been off work since seeing the PA. 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 Today he denies fever, chills, nausea, vomiting. Progress of Wound: Right medial distal leg ulcer with thick scab that was removed. Ulcer is pink and appears venous in appearance. It is very painful to palpation and he states he is experiencing burning pain. [facility] Medical History (Updated 02/14/22 @ 12:07 by Carine Foy NP, [employer]) Blood clot in vein Bone fracture Hearing problem Home Medications triamcinolone acetonide 0.1 % topical ointment 1 applic topical BID #80 grams 01/09/21 [Rx Last Taken Unknown] Allergy/AdvReac Type Severity Reaction Status Date / Time No Known Allergies Allergy Verified 01/09/21 15:24 Family History Brother Blood clot in vein Sister Blood clot in vein Surgical History History of hand surgery Social History Smoking Status: Former smoker alcohol intake: never substance use type: does not use what type of physical activity do you participate in: none ROS Constitutional Constitutional: Denies fever(s), frequent falls or headache(s) Eyes Eyes: Reports requires corrective lenses ENT HEENT: Reports hearing loss Cardiovascular Cardiovascular: Reports leg edema and leg ulcers; Denies chest pain or dyspnea Respiratory/Chest Respiratory/Chest: Denies cough or dyspnea Gastrointestinal Gastrointestinal: Reports none Musculoskeletal Musculoskeletal: Reports none Integumentary Integumentary: Reports skin ulcer and skin swelling Neurologic Neurologic: Reports burning sensations Psychiatric Psychiatric: Reports none Endocrine Endocrinology: Reports none Vital Signs Vital Signs Vital Signs: 02/13/22 14:30 Temperature 97 F L Temperature Source Temporal Pulse Rate 78 Respiratory Rate 18 Blood Pressure 134/59 H Blood Pressure Mean 84 Blood Pressure Source Monitor Blood Pressure Position Sitting Blood Pressure Location Left Arm Oxygen Delivery Method Room Air Physical Exam Const alert and oriented x3 General Appearance: cooperative HEENT normocephalic HEENT Narrative: Hard of hearing, wears hearing aids Resp normal respiratory effort, normal air movement and clear to auscultation bilaterally Effort and Inspection: able to speak in complete sentences Cardio regular rate and regular rhythm Peripheral Pulses: dorsalis pedis pulses present bilateral 2+ GI soft to palpation and non-tender Extremity full ROM and normal capillary refill Extremity Narrative: +2 edema on right lower leg Skin Wound Narrative: Right medial leg ulcer with thickened scab that was removed, he has a pink, painful ulcer. Neuro oriented x3 Sensorium / Orientation: awake and alert Psych mental status grossly normal Debridement Note Debridement Note Wound debrided: medial distal leg ulcer Laterality: Right Type of Debridement: Excisional debridement Anesthesia Used: 4% Lidocaine Solution and 5% Lidocaine Gel Depth: Down to and including healthy tissue and in the subcutaneous layer Percentage of wound debrided: 100 Instrument Used: 7mm curette Tissue Removed: Devitalized tissue and sloughy Severity: Fat Layer Exposed Amount of bleeding with debridement: Mild Bleeding Controlled with: Compression and gauze Patient tolerated procedure: Patient tolerated procedure well Post-Debridement Measurements and Additional Note: Post-Debridement Measurements/Treatment - Nurse 1 - General Ulcer Assessment Start: 02/13/22 14:29 Freq: Status: Active Protocol: LATOYA Activity Type Activity Date Activity User E-sign Co-sign Detail Recorded Client Recorded Date Recorded By Document 02/13/22 14:30 AL [id number] 02/13/22 14:39 AL 02/13/22 14:30 - Today's Visit Information Type of service Initial Visit Arrival Mode Ambulatory Accompanied by bran Patient Identification Verified (Name & Yes ) Vital Signs Temperature (97.8 F-99.1 F) 97 F L Temperature Source Temporal Pulse Rate (60-100) 78 Pulse Location Monitor Respiratory Rate (12-18) 18 Respiratory rate source Observation Oxygen Delivery Method Room Air Blood Pressure (90/60-120/80) 134/59 H Blood Pressure Mean 84 Source Monitor Position Sitting Blood Pressure Location Left Arm History Since Last Visit- (Skip if this is Patient's initial visit) Left Footwear Regular Shoe Right Footwear Regular Shoe Pain Scale: 0-10 Numeric Is Patient Pain Free? Yes - Nurse 1 - General Ulcer Measurement Start: 02/13/22 14:29 Freq: Status: Active Protocol: Activity Type Activity Date Activity User E-sign Co-sign Detail Recorded Client Recorded Date Recorded By Document 02/13/22 14:30 AL [id number] 02/13/22 14:39 AL 02/13/22 14:30 Wound Center Nurse 1 #1 Right Medial LE -Current Size (cm) - Length 8 -Current Size (cm) - Width 3.5 -Current Size (cm) - Depth 0.1 -Total Square Cm 28.0 -Exudate Amt Medium -Exudate Type Serosanguineous -Wound Margin Flat & Intact -Granulation Amt Medium (34-66%) -Granulation Quality Pale,[place] -Necrosis Amt Medium (34-66%) -Necrotic Tissue Type Adherent Slough -Texture (Dee-wound Skin Appearance) Assessed, Localized Edema -Moisture (Dee-wound Skin Appearance) Assessed -Color (Dee-wound Skin Appearance) Assessed, Hemosiderin Staining -Temperature (Dee-wound Skin No Abnormality Appearance) (Pt Warm) -Tenderness on Palpation (Dee-wound No Skin Appearance) -Ulcer Cleansing Rinsed/ Irrigated with Saline -Foul Odor after Cleansing No -Anesthetic Used 4% Lidocaine Solution Right Calf (cm) 44 Right Ankle (cm) 28 - Nurse 2 - General Ulcer CM Notes Start: 02/13/22 14:29 Freq: Status: Active Protocol: Activity Type Activity Date Activity User E-sign Co-sign Detail Recorded Client Recorded Date Recorded By Document 02/13/22 15:05 MW [id number] 02/13/22 15:11 MW 02/13/22 15:05 Wound Center Nurse 2 #1 Right Medial LE -Time 15:05 -Correct Patient Yes -Correct Side, Site, Position Yes -Correct Procedure Yes -Procedure Performed Yes -Type of Procedure Debridement -Clinical Debridement Subcutaneous -Tissue Removed Subcutaneous -Post Debridement (cm) - Length 8.0 -Post Debridement (cm) - Width 3.3 -Post Debridement (cm) - Depth 0.1 -Total Square (Post) (cm) 26.40 -Area of Debridement (cm) - Length 8.0 -Area of Debridement (cm) - Width 3.3 -Total Square (Area) (cm) 26.40 -Tunneling No -Undermining/Tunneling No -Circular Undermining No -Wound/Ulcer Outcome Not Healed -Ulcer Cleansing Rinsed/ Irrigated with Saline -Foul Odor after Cleansing No -Bioengineered Tissue No -Bleeding Controlled with Pressure -Treatment Response Procedure Tolerated Well -Offloading No -Debridement - Subq, 1st 20sq cm Yes -Debridement, SubQ, ea addt'l 20sq cm 1 or part thereof Pain Scale: 0-10 Numeric Is Patient Pain Free? Yes - Nurse 3 - General Ulcer D/C NN Start: 02/13/22 14:29 Freq: Status: Active Protocol: Activity Type Activity Date Activity User E-sign Co-sign Detail Recorded Client Recorded Date Recorded By Document 02/13/22 15:30 AL [id number] 02/13/22 15:38 AL 02/13/22 15:30 Wound Care Nurse 3 #1 Right Medial LE -Ulcer Cleansing Rinsed/ Irrigated with Saline -Primary Dressing Applied Fibracol Plus 4x4 -Primary Dressing Covered/Secured with Dry Gauze & Roll Gauze, Secured with Tape -Fibracol Plus 4x4 1 Right -Tubular Bandage Single Layer -Size of Tubigrip Used Size E -Size E ($) 1 Pain Scale: 0-10 Numeric Is Patient Pain Free? Yes - Visit Discharge Discharge Condition Stable Ambulatory Status Ambulatory Transportation Private Auto Medication Reconcilliation completed & No provided to patient/care provider Clinical Summary of Care Provided Yes Charges/Coding Visit Charges Office Visits / Consults: 54625 OV L3 Est (25 modifier) Procedures Integumentary 111xxx-113xx: [id number] Deborah subq tissue 20 sq cm/< Assessment/Plan Assessment/Plan (1) Ulcer of right lower extremity with fat layer exposed: CODE(S): L97.912 - Non-pressure chronic ulcer of unspecified part of right lower leg with fat layer exposed (2) Swelling of right lower extremity: CODE(S): M79.89 - Other specified soft tissue disorders (3) Blood clot in vein: CODE(S): I82.90 - Acute embolism and thrombosis of unspecified vein (4) Peripheral vascular disease: CODE(S): I73.9 - Peripheral vascular disease, unspecified PLAN: Plan Patient was evaluated at the wound healing center and a debridement was performed as documented. Wound care - Moistened fibrocol + topped with ABD/gauze daily after washing with soap and water. Place tubigrip for compression. Will perform SHAZIA next week to evaluate if he is able to tolerate more compression. Will order vascular studies. Venous duplex of right leg on 02/08/22 showed Partially compressible femoral vein with echogenic material consistent with chronic deep venous thrombosis. Visualization is difficult so cannot exclude an acute component. Patent and compressible right great saphenous vein. Normal flow patterns left common femoral vein. He had an ultrasound of his right leg and the results were not discussed with him by his PCP. I discussed the results and then contacted his PCP to let them manage this aspect of his care. Instructed patient to keep leg elevated whenever sitting. He is to avoid standing for long periods of time, but he may walk with no restrictions. Encouraged patient it increase his protein intake and increase Vitamin C to 1,000 mg daily for wound healing. Follow up one week.
[2022-02-20 14:51] VITALS: TEMP 35.9
--- NOTE | 2022-02-20 15:53 | PCM.WC.PN ---
History of Present Illness Date of Service: 02/20/22 Chief Complaint: Non healing right medial leg venous ulcer History of Wound: Patient is a 71 year old male who presents with a right medial leg ulcer that he states started 4-5 weeks ago. He saw his PCP's PA on 02/06/22 and they treated him with Cephalexin and Doxycycline for cellulitis and ordered a venous ultrasound of his right leg to rule out DVT. Patient has not been placing anything on his ulcer. He states he has been off work since seeing the PA. He is supposed to start back to work this week. 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 He states that this ulcer is very painful. Wound care - Moistened Fibrocal plus covered with adaptic and topped with gauze. Today he denies fever, chills, nausea, vomiting. Progress of Wound: Right medial distal leg ulcer is very painful. Ulcer is pink and superficial. Objective Data Objective Data Vital Signs: Vital Signs Temp Pulse Resp BP O2 Del Method 96.6 F L 78 18 134/59 H Room Air 02/20/22 14:51 02/13/22 14:30 02/13/22 14:30 02/13/22 14:30 02/13/22 14:30 Oxygen Delivery Method Room Air Charges/Coding Procedures Integumentary [id number]: [id number] Edborah subq tissue 20 sq cm/< Add On Codes: 36800 Deborah subq tissue add-on Physical Exam Const alert and oriented x3 General Appearance: cooperative HEENT normocephalic HEENT Narrative: Hard of hearing, wears hearing aids Resp normal respiratory effort Effort and Inspection: able to speak in complete sentences Cardio regular rate and regular rhythm Peripheral Pulses: dorsalis pedis pulses present bilateral 2+ GI soft to palpation and non-tender Extremity full ROM and normal capillary refill Extremity Narrative: +2 edema on right lower leg Skin Wound Narrative: Right medial leg ulcer that is pink and painful. Neuro oriented x3 Psych mental status grossly normal Debridement Note Debridement Note Wound debrided: medial distal leg ulcer Laterality: Right Type of Debridement: Excisional debridement Anesthesia Used: 4% Lidocaine Solution and 5% Lidocaine Gel Depth: Down to and including healthy tissue and in the subcutaneous layer Percentage of wound debrided: 100 Instrument Used: 7mm curette Tissue Removed: Devitalized tissue and sloughy Severity: Fat Layer Exposed Amount of bleeding with debridement: Mild Bleeding Controlled with: Compression and gauze Patient tolerated procedure: Patient tolerated procedure well Post-Debridement Measurements and Additional Note: Post-Debridement Measurements/Treatment WC - Nurse 1 - General Ulcer Assessment Start: 02/13/22 14:29 Freq: Status: Active Protocol: LATOYA Activity Type Activity Date Activity User E-sign Co-sign Detail Recorded Client Recorded Date Recorded By Document 02/13/22 14:30 ID [id number] 02/13/22 14:39 ID Document 02/20/22 14:51 AK [id number] 02/20/22 15:15 AK 02/13/22 02/20/22 14:30 14:51 WC - Today's Visit Information Type of service Initial Visit Follow-up Visit (Physician/[employer] ) Arrival Mode Ambulatory Ambulatory Accompanied by bran Patient Identification Verified (Name & Yes Yes ) Patient Requires Transmission-Based No Precautions Vital Signs Temperature (97.8 F-99.1 F) 97 F L 96.6 F L Temperature Source Temporal Temporal Pulse Rate (60-100) 78 Pulse Location Monitor Respiratory Rate (12-18) 18 Respiratory rate source Observation Oxygen Delivery Method Room Air Blood Pressure (90/60-120/80) 134/59 H Blood Pressure Mean (mm Hg) 84 Source Monitor Position Sitting Blood Pressure Location Left Arm History Since Last Visit- (Skip if this is Patient's initial visit) Have you changed medications since your No last visit? Any new allergies or adverse reactions No Had a fall/change in ADL's that may No increase risk of falls Signs or symptoms of abuse and/or No neglect since last visit Have you been in the hospital since your No last visit? Has dressing in place as prescribed Yes Has compression in place as prescribed Yes Has offloadiing in place as prescribed N/A Experienced any changes in pain level or No management Left Footwear Regular Shoe Regular Shoe Right Footwear Regular Shoe Regular Shoe Pain Scale: 0-10 Numeric Is Patient Pain Free? Yes Yes [facility] Nurse 1 - General Ulcer Measurement Start: 02/13/22 14:29 Freq: Status: Active Protocol: Activity Type Activity Date Activity User E-sign Co-sign Detail Recorded Client Recorded Date Recorded By Document 02/13/22 14:30 ID [id number] 02/13/22 14:39 MT Document 02/20/22 14:51 AK [id number] 02/20/22 15:15 AK 02/13/22 02/20/22 14:30 14:51 Wound Center Nurse 1 #1 Right Medial LE -Combined with other wound No -Current Size (cm) - Length 8 5.3 -Current Size (cm) - Width 3.5 2.5 -Current Size (cm) - Depth 0.1 0.1 -Total Square Cm 28.0 13.25 -Date of Last Picture (Recall this 02/20/22 field) -Photo Taken Yes -Tunneling No -Undermining/Tunneling No -Circular Undermining No -Change in Wound Grade/Stage No -Exudate Amt Medium Medium -Exudate Type Serosanguineous Serosanguineous -Wound Margin Flat & Intact Distinct, Outline Attached -Granulation Amt Medium (34-66%) Medium (34-66%) -Granulation Quality Pale,Hanna N/A -Slough/Fibrin No -Necrosis Amt Medium (34-66%) Small (1-33%) -Necrotic Tissue Type Adherent Slough Adherent Slough -Structure Exposed N/A -Texture (Dee-wound Skin Appearance) Assessed, No Abnormality, Localized Edema Assessed -Moisture (Dee-wound Skin Appearance) Assessed No Abnormality, Assessed -Color (Dee-wound Skin Appearance) Assessed, No Abnormality, Hemosiderin Assessed Staining -Temperature (Dee-wound Skin No Abnormality No Abnormality Appearance) (Pt Warm) (Pt Warm) -Tenderness on Palpation (Dee-wound No No Skin Appearance) -Ulcer Cleansing Rinsed/ Rinsed/ Irrigated with Irrigated with Saline Saline -Foul Odor after Cleansing No No -Anesthetic Used 4% Lidocaine 4% Lidocaine Solution Solution Right Calf (cm) 44 42 Right Ankle (cm) 28 26 WC - Nurse 2 - General Ulcer CM Notes Start: 02/13/22 14:29 Freq: Status: Active Protocol: Activity Type Activity Date Activity User E-sign Co-sign Detail Recorded Client Recorded Date Recorded By Document 02/13/22 15:05 MW [id number] 02/13/22 15:11 MW Document 02/20/22 15:13 MW [id number] 02/20/22 15:20 MW 02/13/22 02/20/22 15:05 15:13 Wound Center Nurse 2 #1 Right Medial LE -Time 15:05 15:14 -Correct Patient Yes Yes -Correct Side, Site, Position Yes Yes -Correct Procedure Yes Yes -Procedure Performed Yes Yes -Type of Procedure Debridement Debridement -Clinical Debridement Subcutaneous Subcutaneous -Tissue Removed Subcutaneous Subcutaneous -Post Debridement (cm) - Length 8.0 7.7 -Post Debridement (cm) - Width 3.3 3.0 -Post Debridement (cm) - Depth 0.1 0.2 -Total Square (Post) (cm) 26.40 23.10 -Area of Debridement (cm) - Length 8.0 7.7 -Area of Debridement (cm) - Width 3.3 3.0 -Total Square (Area) (cm) 26.40 23.10 -Tunneling No No -Undermining/Tunneling No No -Circular Undermining No No -Wound/Ulcer Outcome Not Healed Not Healed -Ulcer Cleansing Rinsed/ Rinsed/ Irrigated with Irrigated with Saline Saline -Foul Odor after Cleansing No No -Bioengineered Tissue No No -Bleeding Controlled with Pressure Pressure -Treatment Response Procedure Procedure Tolerated Well Tolerated Well -Offloading No No -Debridement - Subq, 1st 20sq cm Yes Yes -Debridement, SubQ, ea addt'l 20sq cm 1 1 or part thereof Pain Scale: 0-10 Numeric Is Patient Pain Free? Yes Yes - Nurse 3 - General Ulcer D/C NN Start: 02/13/22 14:29 Freq: Status: Active Protocol: Activity Type Activity Date Activity User E-sign Co-sign Detail Recorded Client Recorded Date Recorded By Document 02/13/22 15:30 ID [id number] 02/13/22 15:38 ID Document 02/20/22 15:26 MS [id number] 02/20/22 15:28 AK 02/13/22 02/20/22 15:30 15:26 Wound Care Nurse 3 #1 Right Medial LE -Ulcer Cleansing Rinsed/ Rinsed/ Irrigated with Irrigated with Saline Saline -Foul Odor after Cleansing No -Negative Pressure Wound Therapy N/A -Primary Dressing Applied Fibracol Plus Fibracol Plus 4x4 4x4,NonAdherent Contact Layer -Primary Dressing Covered/Secured with Dry Gauze & Dry Gauze & Roll Gauze, Roll Gauze, Secured with Secured with Tape Tape -Fibracol Plus 4x4 1 1 Right -Tubular Bandage Single Layer -Size of Tubigrip Used Size E -Size E ($) 1 Pain Scale: 0-10 Numeric Is Patient Pain Free? Yes Yes WC - Visit Discharge Discharge Condition Stable Stable Ambulatory Status Ambulatory Ambulatory Transportation Private Auto Private Auto Accompanied by Medication Reconcilliation completed & No Yes provided to patient/care provider Clinical Summary of Care Provided Yes Yes Assessment/Plan Assessment/Plan (1) Ulcer of right lower extremity with fat layer exposed: CODE(S): L97.912 - Non-pressure chronic ulcer of unspecified part of right lower leg with fat layer exposed (2) Swelling of right lower extremity: CODE(S): M79.89 - Other specified soft tissue disorders (3) Blood clot in vein: CODE(S): I82.90 - Acute embolism and thrombosis of unspecified vein (4) Peripheral vascular disease: CODE(S): I73.9 - Peripheral vascular disease, unspecified PLAN: Plan Patient was evaluated at the wound healing center and a debridement was performed as documented. SHAZIA's done at the wound center today, 02/20/22. Right SHAZIA = 1.12, Left SHAZIA = 1.21. Wound care - Moistened fibrocol + topped with ABD/gauze daily after washing with soap and water. Place double tubigrip for compression. Ordered arterial studies. Venous duplex of right leg on 02/08/22 showed Partially compressible femoral vein with echogenic material consistent with chronic deep venous thrombosis. Visualization is difficult so cannot exclude an acute component. Patent and compressible right great saphenous vein. Normal flow patterns left common femoral vein. He had an ultrasound of his right leg and the results were not discussed with him by his PCP. I discussed the results and then contacted his PCP to let them manage this aspect of his care. Instructed patient to keep leg elevated whenever sitting. He is to avoid standing for long periods of time, but he may walk with no restrictions. He is returning to work this week and does stand quite a bit there. Encouraged him to elevate his leg when he is on break. Encouraged patient it increase his protein intake and increase Vitamin C to 1,000 mg daily for wound healing. Follow up one week.
[2022-02-28 14:06] VITALS: BP 133/74; PULSE 82; RESP 16; TEMP 36.1
--- NOTE | 2022-02-28 15:45 | PCM.WC.PN ---
History of Present Illness Date of Service: 02/28/22 Chief Complaint: Non healing right medial leg venous ulcer History of Wound: Patient is a 71 year old male who presents with a right medial leg ulcer that he states started 4-5 weeks ago. He saw his PCP's PA on 02/06/22 and they treated him with Cephalexin and Doxycycline for cellulitis and ordered a venous ultrasound of his right leg to rule out DVT. Patient has not been placing anything on his ulcer. He states he has been off work since seeing the PA. He is supposed to start back to work this week. 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 He states that this ulcer is very painful. Wound care - Moistened Fibrocal plus covered with adaptic and topped with gauze. Today he denies fever, chills, nausea, vomiting. Progress of Wound: Right medial distal leg ulcer is very painful. Ulcer is pink and superficial. Right leg is more edematous today with areas of petechiae like bruising scattered over his right leg and calf. Objective Data Objective Data Vital Signs: Vital Signs Temp Pulse Resp BP O2 Del Method 97 F L 82 16 133/74 H Room Air 02/28/22 14:06 02/28/22 14:06 02/28/22 14:06 02/28/22 14:06 02/13/22 14:30 Oxygen Delivery Method Room Air Charges/Coding Procedures Integumentary 111xxx-113xx: [id number] Deborah subq tissue 20 sq cm/< Add On Codes: 27366 Deborah subq tissue add-on Physical Exam Const alert and oriented x3 HEENT normocephalic HEENT Narrative: Hard of hearing, wears hearing aids Resp Effort and Inspection: able to speak in complete sentences Auscultation: crackles bilateral base Cardio regular rate and regular rhythm Peripheral Pulses: dorsalis pedis pulses present bilateral 2+ GI soft to palpation and non-tender Extremity full ROM and normal capillary refill Extremity Narrative: +2 edema on right lower leg Skin Skin Narrative: Right leg swelling is increased and he has scattered red petechiae like bruising on his right lower leg Wound Narrative: Right medial leg ulcer that is pink and painful. Neuro oriented x3 Psych mental status grossly normal Debridement Note Debridement Note Wound debrided: medial distal leg ulcer cluster Laterality: Right Type of Debridement: Excisional debridement Anesthesia Used: 4% Lidocaine Solution and 5% Lidocaine Gel Depth: Down to and including healthy tissue and in the subcutaneous layer Percentage of wound debrided: 100 Instrument Used: 3mm curette Tissue Removed: Devitalized tissue and slough Severity: Fat Layer Exposed Amount of bleeding with debridement: Mild Bleeding Controlled with: Compression and gauze Patient tolerated procedure: Patient tolerated procedure well Debridement Free Text: Debridement is very painful for patient Post-Debridement Measurements and Additional Note: Post-Debridement Measurements/Treatment - Nurse 1 - General Ulcer Assessment Start: 02/13/22 14:29 Freq: Status: Active Protocol: LTAOYA Activity Type Activity Date Activity User E-sign Co-sign Detail Recorded Client Recorded Date Recorded By Document 02/13/22 14:30 DC [id number] 02/13/22 14:39 DC Document 02/20/22 14:51 [place] [id number] 02/20/22 15:15 AK Document 02/28/22 14:06 DC [id number] 02/28/22 14:13 DC 02/13/22 02/20/22 02/28/22 14:30 14:51 14:06 - Today's Visit Information Type of service Initial Visit Follow-up Visit Follow-up Visit (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 (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 ) ) Arrival Mode Ambulatory Ambulatory Ambulatory Accompanied by bran Patient Identification Verified (Name & Yes Yes Yes ) Patient Requires Transmission-Based No Precautions Vital Signs Temperature (97.8 F-99.1 F) 97 F L 96.6 F L 97 F L Temperature Source Temporal Temporal Temporal Pulse Rate (60-100) 78 82 Pulse Location Monitor Monitor Respiratory Rate (12-18) 18 16 Respiratory rate source Observation Observation Oxygen Delivery Method Room Air Blood Pressure (90/60-120/80) 134/59 H 133/74 H Blood Pressure Mean (mm Hg) 84 93 Source Monitor Monitor Position Sitting Sitting Blood Pressure Location Left Arm Left Arm History Since Last Visit- (Skip if this is Patient's initial visit) Have you changed medications since your No last visit? Any new allergies or adverse reactions No Had a fall/change in ADL's that may No increase risk of falls Signs or symptoms of abuse and/or No neglect since last visit Have you been in the hospital since your No last visit? Has dressing in place as prescribed Yes Has compression in place as prescribed Yes Has offloadiing in place as prescribed N/A Experienced any changes in pain level or No management Left Footwear Regular Shoe Regular Shoe Right Footwear Regular Shoe Regular Shoe Pain Scale: 0-10 Numeric Is Patient Pain Free? Yes Yes Yes WC - Nurse 1 - General Ulcer Measurement Start: 02/13/22 14:29 Freq: Status: Active Protocol: Activity Type Activity Date Activity User E-sign Co-sign Detail Recorded Client Recorded Date Recorded By Document 02/13/22 14:30 DC [id number] 02/13/22 14:39 DC Document 02/20/22 14:51 AK [id number] 02/20/22 15:15 AK Document 02/28/22 14:06 DC [id number] 02/28/22 14:13 DC 02/13/22 02/20/22 02/28/22 14:30 14:51 14:06 Wound Center Nurse 1 #1 Right Medial LE -Combined with other wound No -Current Size (cm) - Length 8 5.3 5 -Current Size (cm) - Width 3.5 2.5 2.5 -Current Size (cm) - Depth 0.1 0.1 0.1 -Total Square Cm 28.0 13.25 12.5 -Date of Last Picture (Recall this 02/20/22 field) -Photo Taken Yes -Tunneling No -Undermining/Tunneling No -Circular Undermining No -Change in Wound Grade/Stage No -Exudate Amt Medium Medium Medium -Exudate Type Serosanguineous Serosanguineous Serosanguineous -Wound Margin Flat & Intact Distinct, Flat & Intact Outline Attached -Granulation Amt Medium (34-66%) Medium (34-66%) Large (67-100%) -Granulation Quality Pale,[place] N/A Pale,[place] -Slough/Fibrin No -Necrosis Amt Medium (34-66%) Small (1-33%) Small (1-33%) -Necrotic Tissue Type Adherent Slough Adherent Slough Adherent Slough -Structure Exposed N/A -Texture (Dee-wound Skin Appearance) Assessed, No Abnormality, Assessed, Localized Edema Assessed Localized Edema -Moisture (Dee-wound Skin Appearance) Assessed No Abnormality, Assessed Assessed -Color (Dee-wound Skin Appearance) Assessed, No Abnormality, Assessed, Hemosiderin Assessed Hemosiderin Staining Staining -Temperature (Dee-wound Skin No Abnormality No Abnormality No Abnormality Appearance) (Pt Warm) (Pt Warm) (Pt Warm) -Tenderness on Palpation (Dee-wound No No No Skin Appearance) -Ulcer Cleansing Rinsed/ Rinsed/ Rinsed/ Irrigated with Irrigated with Irrigated with Saline Saline Saline -Foul Odor after Cleansing No No No -Anesthetic Used 4% Lidocaine 4% Lidocaine 4% Lidocaine Solution Solution Solution Right Calf (cm) 44 42 46.5 Right Ankle (cm) 28 26 29.5 WC - Nurse 2 - General Ulcer CM Notes Start: 02/13/22 14:29 Freq: Status: Active Protocol: Activity Type Activity Date Activity User E-sign Co-sign Detail Recorded Client Recorded Date Recorded By Document 02/13/22 15:05 MW [id number] 02/13/22 15:11 MW Document 02/20/22 15:13 MW [id number] 02/20/22 15:20 MW Document 02/28/22 14:37 PL [id number] 02/28/22 14:38 PL 02/13/22 02/20/22 02/28/22 15:05 15:13 14:37 Wound Center Nurse 2 #1 Right Medial LE -Time 15:05 15:14 14:26 -Correct Patient Yes Yes Yes -Correct Side, Site, Position Yes Yes Yes -Correct Procedure Yes Yes Yes -Procedure Performed Yes Yes Yes -Type of Procedure Debridement Debridement Debridement -Clinical Debridement Subcutaneous Subcutaneous Subcutaneous -Tissue Removed Subcutaneous Subcutaneous Subcutaneous -Post Debridement (cm) - Length 8.0 7.7 7.2 -Post Debridement (cm) - Width 3.3 3.0 2.8 -Post Debridement (cm) - Depth 0.1 0.2 0.1 -Total Square (Post) (cm) 26.40 23.10 20.16 -Area of Debridement (cm) - Length 8.0 7.7 7.2 -Area of Debridement (cm) - Width 3.3 3.0 2.8 -Total Square (Area) (cm) 26.40 23.10 20.16 -Tunneling No No No -Undermining/Tunneling No No No -Circular Undermining No No No -Wound/Ulcer Outcome Not Healed Not Healed Not Healed -Ulcer Cleansing Rinsed/ Rinsed/ Rinsed/ Irrigated with Irrigated with Irrigated with Saline Saline Saline -Foul Odor after Cleansing No No No -Bioengineered Tissue No No No -Bleeding Controlled with Pressure Pressure Pressure -Treatment Response Procedure Procedure Procedure Tolerated Well Tolerated Well Tolerated Well -Offloading No No -Debridement - Subq, 1st 20sq cm Yes Yes Yes -Debridement, SubQ, ea addt'l 20sq cm 1 1 1 or part thereof Pain Scale: 0-10 Numeric Is Patient Pain Free? Yes Yes Yes - Nurse 3 - General Ulcer D/C NN Start: 02/13/22 14:29 Freq: Status: Active Protocol: Activity Type Activity Date Activity User E-sign Co-sign Detail Recorded Client Recorded Date Recorded By Document 02/13/22 15:30 DC [id number] 02/13/22 15:38 DC Document 02/20/22 15:26 AK [id number] 02/20/22 15:28 AK Document 02/28/22 15:10 AK [id number] 02/28/22 15:11 W[place] 02/13/22 02/20/22 02/28/22 15:30 15:26 15:10 Wound Care Nurse 3 #1 Right Medial LE -Ulcer Cleansing Rinsed/ Rinsed/ Rinsed/ Irrigated with Irrigated with Irrigated with Saline Saline Saline -Foul Odor after Cleansing No No -Negative Pressure Wound Therapy N/A N/A -Primary Dressing Applied Fibracol Plus Fibracol Plus Fibracol Plus 4x4 4x4,NonAdherent 4x4,NonAdherent Contact Layer Contact Layer -Other Dressing ABD -Primary Dressing Covered/Secured with Dry Gauze & Dry Gauze & Dry Gauze & Roll Gauze, Roll Gauze, Roll Gauze, Secured with Secured with Secured with Tape Tape Tape -Fibracol Plus 4x4 1 1 1 Right -Tubular Bandage Single Layer -Size of Tubigrip Used Size E -Size E ($) 1 Pain Scale: 0-10 Numeric Is Patient Pain Free? Yes Yes No - Visit Discharge Discharge Condition Stable Stable Stable Ambulatory Status Ambulatory Ambulatory Ambulatory Transportation Private Auto Private Auto Private Auto Accompanied by Medication Reconcilliation completed & No Yes Yes provided to patient/care provider Clinical Summary of Care Provided Yes Yes Yes Assessment/Plan Assessment/Plan (1) Ulcer of right lower extremity with fat layer exposed: CODE(S): L97.912 - Non-pressure chronic ulcer of unspecified part of right lower leg with fat layer exposed (2) Swelling of right lower extremity: CODE(S): M79.89 - Other specified soft tissue disorders (3) Blood clot in vein: CODE(S): I82.90 - Acute embolism and thrombosis of unspecified vein (4) Peripheral vascular disease: CODE(S): I73.9 - Peripheral vascular disease, unspecified PLAN: Plan Patient was evaluated at the wound healing center and a debridement was performed as documented. SHAZIA's done at the wound center today, 02/20/22. Right SHAZIA = 1.12, Left SHAZIA = 1.21. Wound care - Moistened fibrocol + topped Adaptic then covered with ABD/gauze daily after washing with soap and water. Place double tubigrip for compression. Ordered arterial studies. Venous duplex of right leg on 02/08/22 showed Partially compressible femoral vein with echogenic material consistent with chronic deep venous thrombosis. Visualization is difficult so cannot exclude an acute component. Patent and compressible right great saphenous vein. Normal flow patterns left common femoral vein. He had an ultrasound of his right leg and the results were not discussed with him by his PCP. I discussed the results and then contacted his PCP to let them manage this aspect of his care. From their most recent note they discussed his options for anticoagulation, and he chose to do nothing at this time. He tells me he wanted to talk with his PCP, Dr. Stephen, about these issues. Instructed patient to keep leg elevated whenever sitting. He is to avoid standing for long periods of time, but he may walk with no restrictions. He is returning to work this week and does stand quite a bit there. Encouraged him to elevate his leg when he is on break. Encouraged patient it increase his protein intake and increase Vitamin C to 1,000 mg daily for wound healing. He is back to work so he is standing for long periods of time. He also presented today audibly wheezing. This is new for him. He currently is not wheezing, but there is some fine crackles in the bases of his lungs bilaterally. My concern is with the increased swelling of his right leg, with the petechiae like bruising along with the shortness of breath/audible wheezing with activity, he needs further evaluation. I phoned the ED to tell them I was sending him over for further evaluation and possibly for them to put him on an anticoagulant. He states he has a significant history for clots in his legs and lung Follow up one week.
[2022-03-06 15:14] VITALS: TEMP 36.2
--- NOTE | 2022-03-06 16:10 | PN.PCM_ITS ---
History of Present Illness Date of Service: 03/06/22 Chief Complaint: Non healing right medial leg venous ulcer History of Wound: Patient is a 71 year old male who presents with a right medial leg ulcer that he states started 4-5 weeks ago. He saw his PCP's PA on 02/06/22 and they treated him with Cephalexin and Doxycycline for cellulitis and ordered a venous ultrasound of his right leg to rule out DVT. Patient has not been placing anything on his ulcer. He states he has been off work since seeing the PA. He is supposed to start back to work this week. 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 He states that this ulcer is very painful. Wound care - Moistened Fibrocal plus slightly moistened covered with adaptic and topped with gauze. Today he denies fever, chills, nausea, vomiting. Progress of Wound: Right medial distal leg ulcer continues to be very painful. Ulcer is pink and superficial. He continues to have red petechia areas on his right leg. Objective Data Objective Data Vital Signs: Vital Signs Temp Pulse Resp BP O2 Del Method 97.2 F L 82 16 133/74 H Room Air 03/06/22 15:14 02/28/22 14:06 02/28/22 14:06 02/28/22 14:06 03/06/22 15:14 Oxygen Delivery Method Room Air Lab / Micro Data Micro: Microbiology 03/01/22 14:30 Wound Abcess - Leg, Right Gram Stain - Final 03/01/22 14:30 Wound Abcess - Leg, Right Wound Culture - Final Staphylococcus saprophyticus 03/01/22 14:30 Wound Abcess - Leg, Right Anaerobic Culture - Final Charges/Coding Procedures Integumentary [id number]: [id number] Deborah subq tissue 20 sq cm/< Physical Exam Const alert and oriented x3 HEENT normocephalic HEENT Narrative: Hard of hearing, wears hearing aids Resp Resp Narrative: Scattered wheezes bilaterally Effort and Inspection: able to speak in complete sentences Cardio regular rate and regular rhythm Peripheral Pulses: dorsalis pedis pulses present bilateral 2+ GI soft to palpation and non-tender Extremity full ROM and normal capillary refill Extremity Narrative: +2 edema on right lower leg Skin Skin Narrative: Right leg swelling +2-+3 edema, and he has scattered red petechiae like bruising on his right lower leg Wound Narrative: Right medial leg ulcer that is pink and painful and superficial. Neuro oriented x3 Psych mental status grossly normal Debridement Note Debridement Note Wound debrided: medial distal leg ulcer cluster Laterality: Right Type of Debridement: Excisional debridement Anesthesia Used: 4% Lidocaine Solution and 5% Lidocaine Gel Depth: Down to and including healthy tissue and in the subcutaneous layer Percentage of wound debrided: 100 Instrument Used: 5mm curette Tissue Removed: Devitalized tissue and slough Severity: Fat Layer Exposed Amount of bleeding with debridement: Mild Bleeding Controlled with: Compression and gauze Patient tolerated procedure: Patient tolerated procedure well Debridement Free Text: Debridement is very painful for patient Post-Debridement Measurements and Additional Note: Post-Debridement Measurements/Treatment - Nurse 1 - General Ulcer Assessment Start: 02/13/22 14:29 Freq: Status: Active Protocol: LATOYA Activity Type Activity Date Activity User E-sign Co-sign Detail Recorded Client Recorded Date Recorded By Document 02/13/22 14:30 AK [id number] 02/13/22 14:39 AK Document 02/20/22 14:51 DE [id number] 02/20/22 15:15 DE Document 02/28/22 14:06 AK [id number] 02/28/22 14:13 AK Document 03/06/22 15:14 [facility] [id number] 03/06/22 15:18 [facility] 02/13/22 02/20/22 02/28/22 14:30 14:51 14:06 - Today's Visit Information Type of service Initial Visit Follow-up Visit Follow-up Visit (Physician/PRAWN TRAWLER HAND (Physician/PRAWN TRAWLER HAND ) ) Arrival Mode Ambulatory Ambulatory Ambulatory Transfer Assistance Accompanied by bran Patient Identification Verified (Name & Yes Yes Yes ) Patient Requires Transmission-Based No Precautions Vital Signs Temperature (97.8 F-99.1 F) 97 F L 96.6 F L 97 F L Temperature Source Temporal Temporal Temporal Pulse Rate (60-100) 78 82 Pulse Location Monitor Monitor Respiratory Rate (12-18) 18 16 Respiratory rate source Observation Observation Oxygen Delivery Method Room Air Blood Pressure (90/60-120/80) 134/59 H 133/74 H Blood Pressure Mean (mm Hg) 84 93 Source Monitor Monitor Position Sitting Sitting Blood Pressure Location Left Arm Left Arm History Since Last Visit- (Skip if this is Patient's initial visit) Have you changed medications since your No last visit? Any new allergies or adverse reactions No Had a fall/change in ADL's that may No increase risk of falls Signs or symptoms of abuse and/or No neglect since last visit Have you been in the hospital since your No last visit? Has dressing in place as prescribed Yes Has compression in place as prescribed Yes Has offloadiing in place as prescribed N/A Experienced any changes in pain level or No management Left Footwear Regular Shoe Regular Shoe Right Footwear Regular Shoe Regular Shoe Pain Scale: 0-10 Numeric Is Patient Pain Free? Yes Yes Yes 03/06/22 15:14 WC - Today's Visit Information Type of service Follow-up Visit (Physician/[facility] ) Arrival Mode Ambulatory Transfer Assistance None Accompanied by Patient Identification Verified (Name & Yes ) Patient Requires Transmission-Based No Precautions Vital Signs Temperature (97.8 F-99.1 F) 97.2 F L Temperature Source Temporal Pulse Rate (60-100) Pulse Location Monitor Respiratory Rate (12-18) Respiratory rate source Observation Oxygen Delivery Method Room Air Blood Pressure (90/60-120/80) Blood Pressure Mean (mm Hg) Source Monitor Position Sitting Blood Pressure Location Right Arm History Since Last Visit- (Skip if this is Patient's initial visit) Have you changed medications since your Yes last visit? Any new allergies or adverse reactions No Had a fall/change in ADL's that may No increase risk of falls Signs or symptoms of abuse and/or No neglect since last visit Have you been in the hospital since your No last visit? Has dressing in place as prescribed Yes Has compression in place as prescribed Yes Has offloadiing in place as prescribed N/A Experienced any changes in pain level or No management Left Footwear Regular Shoe Right Footwear Regular Shoe Pain Scale: 0-10 Numeric Is Patient Pain Free? Yes - Nurse 1 - General Ulcer Measurement Start: 02/13/22 14:29 Freq: Status: Active Protocol: Activity Type Activity Date Activity User E-sign Co-sign Detail Recorded Client Recorded Date Recorded By Document 02/13/22 14:30 MT [id number] 02/13/22 14:39 MT Document 02/20/22 14:51 AK [id number] 02/20/22 15:15 AK Document 02/28/22 14:06 AK [id number] 02/28/22 14:13 AK Document 03/06/22 15:14 [facility] [id number] 03/06/22 15:18 BMF 02/13/22 02/20/22 02/28/22 14:30 14:51 14:06 Wound Center Nurse 1 #1 Right Medial LE -Combined with other wound No -Current Size (cm) - Length 8 5.3 5 -Current Size (cm) - Width 3.5 2.5 2.5 -Current Size (cm) - Depth 0.1 0.1 0.1 -Total Square Cm 28.0 13.25 12.5 -Date of Last Picture (Recall this 02/20/22 field) -Photo Taken Yes -Epithelialization -Tunneling No -Undermining/Tunneling No -Circular Undermining No -Change in Wound Grade/Stage No -Exudate Amt Medium Medium Medium -Exudate Type Serosanguineous Serosanguineous Serosanguineous -Wound Margin Flat & Intact Distinct, Flat & Intact Outline Attached -Granulation Amt Medium (34-66%) Medium (34-66%) Large (67-100%) -Granulation Quality Pale,[place] N/A Pale,[place] -Slough/Fibrin No -Necrosis Amt Medium (34-66%) Small (1-33%) Small (1-33%) -Necrotic Tissue Type Adherent Slough Adherent Slough Adherent Slough -Structure Exposed N/A -Texture (Dee-wound Skin Appearance) Assessed, No Abnormality, Assessed, Localized Edema Assessed Localized Edema -Moisture (Dee-wound Skin Appearance) Assessed No Abnormality, Assessed Assessed -Color (Dee-wound Skin Appearance) Assessed, No Abnormality, Assessed, Hemosiderin Assessed Hemosiderin Staining Staining -Temperature (Dee-wound Skin No Abnormality No Abnormality No Abnormality Appearance) (Pt Warm) (Pt Warm) (Pt Warm) -Tenderness on Palpation (Dee-wound No No No Skin Appearance) -Ulcer Cleansing Rinsed/ Rinsed/ Rinsed/ Irrigated with Irrigated with Irrigated with Saline Saline Saline -Foul Odor after Cleansing No No No -Anesthetic Used 4% Lidocaine 4% Lidocaine 4% Lidocaine Solution Solution Solution Lower Limb Edema Present Right Calf (cm) 44 42 46.5 Right Ankle (cm) 28 26 29.5 03/06/22 15:14 Wound Center Nurse 1 #1 Right Medial LE -Combined with other wound No -Current Size (cm) - Length 4.8 -Current Size (cm) - Width 2.1 -Current Size (cm) - Depth 0.2 -Total Square Cm 10.08 -Date of Last Picture (Recall this field) -Photo Taken No -Epithelialization None Present -Tunneling No -Undermining/Tunneling No -Circular Undermining No -Change in Wound Grade/Stage -Exudate Amt Medium -Exudate Type Serosanguineous -Wound Margin Distinct, Outline Attached -Granulation Amt Small (1-33%) -Granulation Quality Red -Slough/Fibrin Yes -Necrosis Amt Large (67-100%) -Necrotic Tissue Type Adherent Slough -Structure Exposed -Texture (Dee-wound Skin Appearance) Assessed, Scarring -Moisture (Dee-wound Skin Appearance) Assessed -Color (Dee-wound Skin Appearance) Assessed, Erythema, Hemosiderin Staining -Temperature (Dee-wound Skin No Abnormality Appearance) (Pt Warm) -Tenderness on Palpation (Dee-wound No Skin Appearance) -Ulcer Cleansing Rinsed/ Irrigated with Saline -Foul Odor after Cleansing No -Anesthetic Used 4% Lidocaine Solution Lower Limb Edema Present Yes Right Calf (cm) 43 Right Ankle (cm) 29 WC - Nurse 2 - General Ulcer CM Notes Start: 02/13/22 14:29 Freq: Status: Active Protocol: Activity Type Activity Date Activity User E-sign Co-sign Detail Recorded Client Recorded Date Recorded By Document 02/13/22 15:05 MW [id number] 02/13/22 15:11 MW Document 02/20/22 15:13 MW [id number] 02/20/22 15:20 MW Document 02/28/22 14:37 PL [id number] 02/28/22 14:38 PL Document 03/06/22 15:46 MW [id number] 03/06/22 15:51 MW 02/13/22 02/20/22 02/28/22 15:05 15:13 14:37 Wound Center Nurse 2 #1 Right Medial LE -Time 15:05 15:14 14:26 -Correct Patient Yes Yes Yes -Correct Side, Site, Position Yes Yes Yes -Correct Procedure Yes Yes Yes -Procedure Performed Yes Yes Yes -Type of Procedure Debridement Debridement Debridement -Clinical Debridement Subcutaneous Subcutaneous Subcutaneous -Tissue Removed Subcutaneous Subcutaneous Subcutaneous -Post Debridement (cm) - Length 8.0 7.7 7.2 -Post Debridement (cm) - Width 3.3 3.0 2.8 -Post Debridement (cm) - Depth 0.1 0.2 0.1 -Total Square (Post) (cm) 26.40 23.10 20.16 -Area of Debridement (cm) - Length 8.0 7.7 7.2 -Area of Debridement (cm) - Width 3.3 3.0 2.8 -Total Square (Area) (cm) 26.40 23.10 20.16 -Tunneling No No No -Undermining/Tunneling No No No -Circular Undermining No No No -Wound/Ulcer Outcome Not Healed Not Healed Not Healed -Ulcer Cleansing Rinsed/ Rinsed/ Rinsed/ Irrigated with Irrigated with Irrigated with Saline Saline Saline -Foul Odor after Cleansing No No No -Bioengineered Tissue No No No -Bleeding Controlled with Pressure Pressure Pressure -Treatment Response Procedure Procedure Procedure Tolerated Well Tolerated Well Tolerated Well -Offloading No No -Debridement - Subq, 1st 20sq cm Yes Yes Yes -Debridement, SubQ, ea addt'l 20sq cm 1 1 1 or part thereof Pain Scale: 0-10 Numeric Is Patient Pain Free? Yes Yes Yes 03/06/22 15:46 Wound Center Nurse 2 #1 Right Medial LE -Time 15:50 -Correct Patient Yes -Correct Side, Site, Position Yes -Correct Procedure Yes -Procedure Performed Yes -Type of Procedure Debridement -Clinical Debridement Subcutaneous -Tissue Removed Subcutaneous -Post Debridement (cm) - Length 5.0 -Post Debridement (cm) - Width 2.8 -Post Debridement (cm) - Depth 0.1 -Total Square (Post) (cm) 14.00 -Area of Debridement (cm) - Length 5.0 -Area of Debridement (cm) - Width 2.8 -Total Square (Area) (cm) 14.00 -Tunneling No -Undermining/Tunneling No -Circular Undermining No -Wound/Ulcer Outcome Not Healed -Ulcer Cleansing Rinsed/ Irrigated with Saline -Foul Odor after Cleansing No -Bioengineered Tissue No -Bleeding Controlled with Pressure -Treatment Response Procedure Tolerated Well -Offloading No -Debridement - Subq, 1st 20sq cm Yes -Debridement, SubQ, ea addt'l 20sq cm or part thereof Pain Scale: 0-10 Numeric Is Patient Pain Free? Yes - Nurse 3 - General Ulcer D/C NN Start: 02/13/22 14:29 Freq: Status: Active Protocol: Activity Type Activity Date Activity User E-sign Co-sign Detail Recorded Client Recorded Date Recorded By Document 02/13/22 15:30 AK [id number] 02/13/22 15:38 AK Document 02/20/22 15:26 AK [id number] 02/20/22 15:28 AK Document 02/28/22 15:10 AK [id number] 02/28/22 15:11 DE Document 03/06/22 15:57 [facility] [id number] 03/06/22 15:59 BMF 02/13/22 02/20/22 02/28/22 15:30 15:26 15:10 Wound Care Nurse 3 #1 Right Medial LE -Ulcer Cleansing Rinsed/ Rinsed/ Rinsed/ Irrigated with Irrigated with Irrigated with Saline Saline Saline -Foul Odor after Cleansing No No -Negative Pressure Wound Therapy N/A N/A -Primary Dressing Applied Fibracol Plus Fibracol Plus Fibracol Plus 4x4 4x4,NonAdherent 4x4,NonAdherent Contact Layer Contact Layer -Other Dressing ABD -Primary Dressing Covered/Secured with Dry Gauze & Dry Gauze & Dry Gauze & Roll Gauze, Roll Gauze, Roll Gauze, Secured with Secured with Secured with Tape Tape Tape -Other Covering -Fibracol Plus 4x4 1 1 1 Right -Tubular Bandage Single Layer -Size of Tubigrip Used Size E -Size E ($) 1 Treatment Response Pain Scale: 0-10 Numeric Is Patient Pain Free? Yes Yes No WC - Visit Discharge Discharge Condition Stable Stable Stable Ambulatory Status Ambulatory Ambulatory Ambulatory Transportation Private Auto Private Auto Private Auto Accompanied by Medication Reconcilliation completed & No Yes Yes provided to patient/care provider Clinical Summary of Care Provided Yes Yes Yes 03/06/22 15:57 Wound Care Nurse 3 #1 Right Medial LE -Ulcer Cleansing Rinsed/ Irrigated with Saline -Foul Odor after Cleansing No -Negative Pressure Wound Therapy -Primary Dressing Applied Fibracol Plus 4x4,NonAdherent Contact Layer -Other Dressing DRSG PER [place] [employer] -Primary Dressing Covered/Secured with Other -Other Covering ABD -Fibracol Plus 4x4 1 Right -Tubular Bandage Single Layer -Size of Tubigrip Used Size E -Size E ($) 1 Treatment Response Procedure Tolerated Well Pain Scale: 0-10 Numeric Is Patient Pain Free? Yes WC - Visit Discharge Discharge Condition Stable Ambulatory Status Ambulatory Transportation Private Auto Accompanied by Medication Reconcilliation completed & provided to patient/care provider Clinical Summary of Care Provided Assessment/Plan Assessment/Plan (1) Ulcer of right lower extremity with fat layer exposed: CODE(S): L97.912 - Non-pressure chronic ulcer of unspecified part of right lower leg with fat layer exposed (2) Swelling of right lower extremity: CODE(S): M79.89 - Other specified soft tissue disorders (3) Blood clot in vein: CODE(S): I82.90 - Acute embolism and thrombosis of unspecified vein (4) Peripheral vascular disease: CODE(S): I73.9 - Peripheral vascular disease, unspecified PLAN: Plan Patient was evaluated at the wound healing center and a debridement was performed as documented. SHAZIA's done at the wound center today, 02/20/22. Right SHAZIA = 1.12, Left SHAZIA = 1.21. Wound care - Moistened fibrocol + topped Adaptic then covered with ABD/gauze daily after washing with soap and water. Place double tubigrip for compression. Ordered arterial studies. Venous duplex of right leg on 02/08/22 showed Partially compressible femoral vein with echogenic material consistent with chronic deep venous thrombosis. Visualization is difficult so cannot exclude an acute component. Patent and compressible right great saphenous vein. Normal flow patterns left common femoral vein. He has been started on Warfarin per his PCP. Instructed patient to keep leg elevated whenever sitting. He is to avoid standing for long periods of time, but he may walk with no restrictions. He is returning to work this week and does stand quite a bit there. Encouraged him to elevate his leg when he is on break. Encouraged patient it increase his protein intake and increase Vitamin C to 1,000 mg daily for wound healing. He was sent to the ED last week due to his wheezing an not being on any blood thinners. He states that they weren't concerned about the wheezing. He continues to have an audible wheeze today but denies difficulty breathing or being SOB. Wound culture obtained 03/01/22 which was positive for Staphylococcus saprophyticus, will start him on Doxycycline 100 mg BID x 14 days. Follow up one week.
== END 2022-03-06 23:59 | disposition home or self-care (01) ==
LOC: WC 15:00
PROVIDERS: PCP Family Medicine; Visit Provider Nurse Practitioner Family
DX: L97.812 Non-pressure chronic ulcer of other part of right lower leg with fat layer exposed (principal); I73.9 Peripheral vascular disease, unspecified; M79.89 Other specified soft tissue disorders; M79.604 Pain in right leg; Z79.01 Long term (current) use of anticoagulants; Z86.718 Personal history of other venous thrombosis and embolism; Z86.711 Personal history of pulmonary embolism; Z87.891 Personal history of nicotine dependence; I82.90 Acute embolism and thrombosis of unspecified vein
CPT/HCPCS: 11042; 11045; 87070; 87075; 87186; 87205; 99213; G0463

== ENCOUNTER → 2022-03-15 | Outpatient (CLI) | payer MEDICARE, SELFPAY ==
[2022-03-15 17:17] LABS: International Normalized Ratio 1.3; Prothrombin Time (Protime)PT. 15.9 SECONDS (11.7-14.9)
== END | disposition home or self-care (01) ==
LOC: BIMLAB 15:09
PROVIDERS: PCP Family Medicine; Visit Provider Family Medicine
DX: I82.509 Chronic embolism and thrombosis of unspecified deep veins of unspecified lower extremity (principal)
CPT/HCPCS: 36415; 85610

== ENCOUNTER → 2022-03-26 | Outpatient (CLI) | payer MEDICARE, SELFPAY ==
[2022-03-26 15:15] LABS: International Normalized Ratio 1.2; Prothrombin Time (Protime)PT. 14.7 SECONDS (11.7-14.9)
== END | disposition home or self-care (01) ==
PROVIDERS: PCP Family Medicine; Referring Provider Family Medicine; Visit Provider Family Medicine
DX: I82.509 Chronic embolism and thrombosis of unspecified deep veins of unspecified lower extremity (principal)
CPT/HCPCS: 36415; 85610

== ENCOUNTER 2022-04-03 13:45 | Outpatient (RCR) | payer MEDICARE, SELFPAY ==
[2022-03-07 00:43] VITALS: BP 133/74; PULSE 82; RESP 16; TEMP 36.2
[2022-03-13 15:00] VITALS: BP 138/75; PULSE 94; RESP 18; TEMP 36.6
--- NOTE | 2022-03-13 16:28 | PN.PCM_ITS ---
History of Present Illness Date of Service: 03/13/22 Chief Complaint: Non healing right medial leg venous ulcer History of Wound: Patient is a 71 year old male who presents with a right medial leg ulcer that he states started 4-5 weeks ago. He saw his PCP's PA on 02/06/22 and they treated him with Cephalexin and Doxycycline for cellulitis and ordered a venous ultrasound of his right leg to rule out DVT. Patient has not been placing anything on his ulcer. He states he has been off work since seeing the PA. He is supposed to start back to work this week. 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 He states that this ulcer is very painful. Wound care - Moistened Fibrocal plus covered with adaptic and topped with gauze. Today he denies fever, chills, nausea, vomiting. Progress of Wound: Right medial leg ulcer has improved, there continues to have fibrous tissue at the base. It is still very painful. Objective Data Objective Data Vital Signs: Vital Signs Temp Pulse Resp BP 97.8 F 94 18 138/75 H 03/13/22 15:00 03/13/22 15:00 03/13/22 15:00 03/13/22 15:00 Charges/Coding Procedures Integumentary 111xxx-113xx: 15022 Deborah subq tissue 20 sq cm/< Physical Exam Const alert and oriented x3 HEENT normocephalic HEENT Narrative: Hard of hearing, wears hearing aids Resp normal respiratory effort Effort and Inspection: able to speak in complete sentences Cardio regular rate Peripheral Pulses: dorsalis pedis pulses present bilateral 2+ Extremity full ROM and normal capillary refill Extremity Narrative: +2 edema on right lower leg Skin Skin Narrative: Right leg swelling +2-edema Wound Narrative: Right medial leg ulcer that is pink and painful and superficial. It is smaller this week. Neuro oriented x3 Psych mental status grossly normal Debridement Note Debridement Note Wound debrided: medial distal leg ulcer cluster Laterality: Right Type of Debridement: Excisional debridement Anesthesia Used: 4% Lidocaine Solution and 5% Lidocaine Gel Depth: Down to and including healthy tissue and in the subcutaneous layer Percentage of wound debrided: 100 Instrument Used: 5mm curette Tissue Removed: Devitalized tissue and slough Severity: Fat Layer Exposed Amount of bleeding with debridement: Mild Bleeding Controlled with: Compression and gauze Patient tolerated procedure: Patient tolerated procedure well Debridement Free Text: Debridement is very painful for patient Post-Debridement Measurements and Additional Note: Post-Debridement Measurements/Treatment - Nurse 1 - General Ulcer Assessment Start: 03/13/22 14:58 Freq: Status: Active Protocol: LATOYA Activity Type Activity Date Activity User E-sign Co-sign Detail Recorded Client Recorded Date Recorded By Document 03/13/22 15:00 [id number] 03/13/22 15:06 03/13/22 15:00 WC - Today's Visit Information Type of service Follow-up Visit (Physician/MACHINE REPAIR PERSON ) Arrival Mode Ambulatory Transfer Assistance None Patient Identification Verified (Name & Yes ) Patient Requires Transmission-Based No Precautions Safety Precautions NA Vital Signs Temperature (97.8 F-99.1 F) 97.8 F Temperature Source Temporal Pulse Rate (60-100) 94 Respiratory Rate (12-18) 18 Blood Pressure (90/60-120/80) 138/75 H Blood Pressure Mean (mm Hg) 96 History Since Last Visit- (Skip if this is Patient's initial visit) Have you changed medications since your No last visit? Any new allergies or adverse reactions No Had a fall/change in ADL's that may No increase risk of falls Signs or symptoms of abuse and/or No neglect since last visit Have you been in the hospital since your No last visit? Has dressing in place as prescribed Yes Has compression in place as prescribed Yes Has offloadiing in place as prescribed N/A Experienced any changes in pain level or No management Pain Scale: 0-10 Numeric Is Patient Pain Free? Yes - Nurse 1 - General Ulcer Measurement Start: 03/13/22 14:58 Freq: Status: Active Protocol: Activity Type Activity Date Activity User E-sign Co-sign Detail Recorded Client Recorded Date Recorded By Document 03/13/22 15:00 [id number] 03/13/22 15:06 03/13/22 15:00 Wound Center Nurse 1 #1 Right Medial LE -Combined with other wound No -Current Size (cm) - Length 1.5 -Current Size (cm) - Width 1.5 -Current Size (cm) - Depth 0.1 -Total Square Cm 2.25 -Photo Taken No -Epithelialization Small 1-33% -Tunneling No -Undermining/Tunneling No -Circular Undermining No -Exudate Amt Medium -Exudate Type Serosanguineous -Granulation Amt Medium (34-66%) -Granulation Quality Pale -Slough/Fibrin Yes -Necrosis Amt Medium (34-66%) -Necrotic Tissue Type Adherent Slough -Ulcer Cleansing Soap and Water -Foul Odor after Cleansing No -Anesthetic Used 5% Lidocaine Gel WC - Nurse 2 - General Ulcer CM Notes Start: 03/13/22 14:58 Freq: Status: Active Protocol: Activity Type Activity Date Activity User E-sign Co-sign Detail Recorded Client Recorded Date Recorded By Document 03/13/22 15:29 MW [id number] 03/13/22 15:32 MW 03/13/22 15:29 Wound Center Nurse 2 -Time 15:30 -Correct Patient Yes -Correct Side, Site, Position Yes -Correct Procedure Yes -Procedure Performed Yes -Type of Procedure Debridement -Clinical Debridement Subcutaneous -Tissue Removed Subcutaneous -Post Debridement (cm) - Length 4.5 -Post Debridement (cm) - Width 2.5 -Post Debridement (cm) - Depth 0.1 -Total Square (Post) (cm) 11.25 -Area of Debridement (cm) - Length 4.5 -Area of Debridement (cm) - Width 2.5 -Total Square (Area) (cm) 11.25 -Tunneling No -Undermining/Tunneling No -Circular Undermining No -Wound/Ulcer Outcome Not Healed -Ulcer Cleansing Rinsed/ Irrigated with Saline -Foul Odor after Cleansing No -Bioengineered Tissue No -Bleeding Controlled with Pressure -Treatment Response Procedure Tolerated Well -Offloading No -Debridement - Subq, 1st 20sq cm Yes Pain Scale: 0-10 Numeric Is Patient Pain Free? Yes WC - Nurse 3 - General Ulcer D/C NN Start: 03/13/22 14:58 Freq: Status: Active Protocol: Activity Type Activity Date Activity User E-sign Co-sign Detail Recorded Client Recorded Date Recorded By Document 03/13/22 15:45 AK [id number] 03/13/22 15:46 AK 03/13/22 15:45 Wound Care Nurse 3 #1 Right Medial LE -Ulcer Cleansing Rinsed/ Irrigated with Saline -Foul Odor after Cleansing No -Negative Pressure Wound Therapy N/A -Primary Dressing Applied Fibracol Plus 4x4,NonAdherent Contact Layer -Other Dressing ABD -Primary Dressing Covered/Secured with Dry Gauze, Secured with Tape -Fibracol Plus 4x4 1 Pain Scale: 0-10 Numeric Is Patient Pain Free? Yes WC - Visit Discharge Discharge Condition Stable Ambulatory Status Ambulatory Transportation Private Auto Medication Reconcilliation completed & Yes provided to patient/care provider Clinical Summary of Care Provided Yes Assessment/Plan Assessment/Plan (1) Ulcer of right lower extremity with fat layer exposed: CODE(S): L97.912 - Non-pressure chronic ulcer of unspecified part of right lower leg with fat layer exposed (2) Swelling of right lower extremity: CODE(S): M79.89 - Other specified soft tissue disorders (3) Blood clot in vein: CODE(S): I82.90 - Acute embolism and thrombosis of unspecified vein (4) Peripheral vascular disease: CODE(S): I73.9 - Peripheral vascular disease, unspecified PLAN: Plan Patient was evaluated at the wound healing center and a debridement was performed as documented. SHAZIA's done at the wound center today, 02/20/22. Right SHAZIA = 1.12, Left SHAZIA = 1.21. Wound care - Moistened fibrocol + topped Adaptic then covered with ABD/gauze daily after washing with soap and water. Place singel tubigrip for compression. Ordered arterial studies. Venous duplex of right leg on 02/08/22 showed Partially compressible femoral vein with echogenic material consistent with chronic deep venous thrombosis. Visualization is difficult so cannot exclude an acute component. Patent and compressible right great saphenous vein. Normal flow patterns left common femoral vein. He has been started on Warfarin per his PCP. Instructed patient to keep leg elevated whenever sitting. He is to avoid standing for long periods of time, but he may walk with no restrictions. He is returning to work this week and does stand quite a bit there. Encouraged him to elevate his leg when he is on break. Encouraged patient it increase his protein intake and increase Vitamin C to 1,000 mg daily for wound healing. Wound culture obtained 03/01/22 which was positive for Staphylococcus saprophyticus, he is on Doxycycline 100 mg BID x 14 days. Follow up one week.
[2022-03-20 14:32] VITALS: BP 142/94; PULSE 67; TEMP 36.2
--- NOTE | 2022-03-20 15:22 | PN.PCM_ITS ---
History of Present Illness Date of Service: 03/20/22 Chief Complaint: Non healing right medial leg venous ulcer History of Wound: Patient is a 71 year old male who presents with a right medial leg ulcer that he states started 4-5 weeks ago. He saw his PCP's PA on 02/06/22 and they treated him with Cephalexin and Doxycycline for cellulitis and ordered a venous ultrasound of his right leg to rule out DVT. Patient has not been placing anything on his ulcer. He states he has been off work since seeing the PA. He is supposed to start back to work this week. 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 He states that this ulcer is very painful. Wound care - Moistened Fibrocal plus covered with adaptic and topped with gauze. Today he denies fever, chills, nausea, vomiting. Progress of Wound: Right medial leg ulcer has improved, there continues to have fibrous tissue at the base. It is still very painful. Objective Data Objective Data Vital Signs: Vital Signs Temp Pulse Resp BP 97.1 F L 67 18 142/94 H 03/20/22 14:32 03/20/22 14:32 03/13/22 15:00 03/20/22 14:32 Charges/Coding Procedures Integumentary 111xxx-113xx: 44765 Deborah subq tissue 20 sq cm/< Physical Exam Const alert and oriented x3 HEENT normocephalic HEENT Narrative: Hard of hearing, wears hearing aids Resp normal respiratory effort Effort and Inspection: able to speak in complete sentences Cardio regular rate Peripheral Pulses: dorsalis pedis pulses present bilateral 2+ Extremity full ROM and normal capillary refill Extremity Narrative: +2 edema on right lower leg Skin Skin Narrative: Right leg swelling +2-edema Wound Narrative: Right medial leg ulcer is smaller. Continues to have fibrous tissue in the base and is very painful. Neuro oriented x3 Psych mental status grossly normal Debridement Note Debridement Note Wound debrided: medial distal leg ulcer cluster Laterality: Right Type of Debridement: Excisional debridement Anesthesia Used: 4% Lidocaine Solution and 5% Lidocaine Gel Depth: Down to and including healthy tissue and in the subcutaneous layer Percentage of wound debrided: 100 Instrument Used: 5mm curette Tissue Removed: Devitalized tissue and slough Severity: Fat Layer Exposed Amount of bleeding with debridement: Mild Bleeding Controlled with: Compression and gauze Patient tolerated procedure: Patient tolerated procedure well Debridement Free Text: Debridement is very painful for patient Post-Debridement Measurements and Additional Note: Post-Debridement Measurements/Treatment WC - Nurse 1 - General Ulcer Assessment Start: 03/13/22 14:58 Freq: Status: Active Protocol: LATOYA Activity Type Activity Date Activity User E-sign Co-sign Detail Recorded Client Recorded Date Recorded By Document 03/13/22 15:00 PL [id number] 03/13/22 15:06 PL Document 03/20/22 14:32 KR [id number] 03/20/22 14:33 KR 03/13/22 03/20/22 15:00 14:32 WC - Today's Visit Information Type of service Follow-up Visit Follow-up Visit (Physician/BILINGUAL CUSTOMER SERVICE SPECIALIST (Physician/BILINGUAL CUSTOMER SERVICE SPECIALIST ) ) Arrival Mode Ambulatory Ambulatory Transfer Assistance None Patient Identification Verified (Name & Yes Yes ) Patient Requires Transmission-Based No Precautions Safety Precautions NA Vital Signs Temperature (97.8 F-99.1 F) 97.8 F 97.1 F L Temperature Source Temporal Temporal Pulse Rate (60-100) 94 67 Pulse Location Monitor Respiratory Rate (12-18) 18 Blood Pressure (90/60-120/80) 138/75 H 142/94 H Blood Pressure Mean (mm Hg) 96 110 Source Monitor Position Semi-Fowlers Blood Pressure Location Left Arm History Since Last Visit- (Skip if this is Patient's initial visit) Have you changed medications since your No No last visit? Any new allergies or adverse reactions No No Had a fall/change in ADL's that may No No increase risk of falls Signs or symptoms of abuse and/or No No neglect since last visit Have you been in the hospital since your No No last visit? Has dressing in place as prescribed Yes Yes Has compression in place as prescribed Yes Yes Has offloadiing in place as prescribed N/A N/A Experienced any changes in pain level or No No management Left Footwear Regular Shoe Right Footwear Regular Shoe Pain Scale: 0-10 Numeric Is Patient Pain Free? Yes Yes SHARLA - Nurse 1 - General Ulcer Measurement Start: 03/13/22 14:58 Freq: Status: Active Protocol: Activity Type Activity Date Activity User E-sign Co-sign Detail Recorded Client Recorded Date Recorded By Document 03/13/22 15:00 PL [id number] 03/13/22 15:06 PL Document 03/20/22 14:32 KR [id number] 03/20/22 14:33 KR 03/13/22 03/20/22 15:00 14:32 Wound Center Nurse 1 #1 Right Medial LE -Combined with other wound No -Current Size (cm) - Length 1.5 0.9 -Current Size (cm) - Width 1.5 0.9 -Current Size (cm) - Depth 0.1 0.1 -Total Square Cm 2.25 0.81 -Photo Taken No -Epithelialization Small 1-33% -Tunneling No -Undermining/Tunneling No -Circular Undermining No -Exudate Amt Medium Small -Exudate Type Serosanguineous Serosanguineous -Wound Margin Distinct, Outline Attached -Granulation Amt Medium (34-66%) Medium (34-66%) -Granulation Quality Pale Red -Slough/Fibrin Yes -Necrosis Amt Medium (34-66%) None Present (0 %) -Necrotic Tissue Type Adherent Slough -Texture (Dee-wound Skin Appearance) Assessed, Scarring -Moisture (Dee-wound Skin Appearance) No Abnormality, Assessed -Color (Dee-wound Skin Appearance) No Abnormality, Assessed -Temperature (Dee-wound Skin No Abnormality Appearance) (Pt Warm) -Tenderness on Palpation (Dee-wound No Skin Appearance) -Ulcer Cleansing Soap and Water Rinsed/ Irrigated with Saline -Foul Odor after Cleansing No No -Anesthetic Used 5% Lidocaine 5% Lidocaine Gel Gel Right Calf (cm) 47 Right Ankle (cm) 29.5 WC - Nurse 2 - General Ulcer CM Notes Start: 03/13/22 14:58 Freq: Status: Active Protocol: Activity Type Activity Date Activity User E-sign Co-sign Detail Recorded Client Recorded Date Recorded By Document 03/13/22 15:29 MW [id number] 03/13/22 15:32 MW Document 03/20/22 14:47 JF [id number] 03/20/22 14:51 JF 03/13/22 03/20/22 15:29 14:47 Wound Center Nurse 2 #1 Right Medial LE -Time 15:30 14:49 -Correct Patient Yes Yes -Correct Side, Site, Position Yes Yes -Correct Procedure Yes Yes -Procedure Performed Yes Yes -Type of Procedure Debridement Debridement -Clinical Debridement Subcutaneous Subcutaneous -Tissue Removed Subcutaneous Subcutaneous -Post Debridement (cm) - Length 4.5 1.0 -Post Debridement (cm) - Width 2.5 1.0 -Post Debridement (cm) - Depth 0.1 0.1 -Total Square (Post) (cm) 11.25 1.00 -Area of Debridement (cm) - Length 4.5 1.0 -Area of Debridement (cm) - Width 2.5 1.0 -Total Square (Area) (cm) 11.25 1.00 -Tunneling No No -Undermining/Tunneling No No -Circular Undermining No No -Wound/Ulcer Outcome Not Healed Not Healed -Ulcer Cleansing Rinsed/ Rinsed/ Irrigated with Irrigated with Saline Saline -Foul Odor after Cleansing No No -Bioengineered Tissue No No -Bleeding Controlled with Pressure Pressure -Treatment Response Procedure Procedure Tolerated Well Tolerated Well -Offloading No No -Debridement - Subq, 1st 20sq cm Yes Yes Pain Scale: 0-10 Numeric Is Patient Pain Free? Yes Yes - Nurse 3 - General Ulcer D/C NN Start: 03/13/22 14:58 Freq: Status: Active Protocol: Activity Type Activity Date Activity User E-sign Co-sign Detail Recorded Client Recorded Date Recorded By Document 03/13/22 15:45 MN [id number] 03/13/22 15:46 MN Document 03/20/22 14:58 [id number] 03/20/22 15:02 RB 03/13/22 03/20/22 15:45 14:58 Wound Care Nurse 3 #1 Right Medial LE -Ulcer Cleansing Rinsed/ Rinsed/ Irrigated with Irrigated with Saline Saline -Foul Odor after Cleansing No -Negative Pressure Wound Therapy N/A -Primary Dressing Applied Fibracol Plus 4x4,NonAdherent Contact Layer -Other Dressing ABD hydrogel -Primary Dressing Covered/Secured with Dry Gauze, Dry Gauze,Dry Secured with Gauze & Roll Tape Gauze,Secured with Tape -Fibracol Plus 4x4 1 Right -Tubular Bandage Double Layer -Size of Tubigrip Used Size E -Size E ($) 2 Pain Scale: 0-10 Numeric Is Patient Pain Free? Yes Yes - Visit Discharge Discharge Condition Stable Stable Ambulatory Status Ambulatory Ambulatory Transportation Private Auto Private Auto Medication Reconcilliation completed & Yes No provided to patient/care provider Clinical Summary of Care Provided Yes Yes Assessment/Plan Assessment/Plan (1) Ulcer of right lower extremity with fat layer exposed: CODE(S): L97.912 - Non-pressure chronic ulcer of unspecified part of right lower leg with fat layer exposed (2) Swelling of right lower extremity: CODE(S): M79.89 - Other specified soft tissue disorders (3) Blood clot in vein: CODE(S): I82.90 - Acute embolism and thrombosis of unspecified vein (4) Peripheral vascular disease: CODE(S): I73.9 - Peripheral vascular disease, unspecified PLAN: Plan Patient was evaluated at the wound healing center and a debridement was performed as documented. SHAZIA's done at the wound center today, 02/20/22. Right SHAZIA = 1.12, Left SHAZIA = 1.21. Wound care - Moistened fibrocol + topped Adaptic then covered with ABD/gauze daily after washing with soap and water. Place double tubigrip for compression. Ordered arterial studies. Venous duplex of right leg on 02/08/22 showed Partially compressible femoral vein with echogenic material consistent with chronic deep venous thrombosis. Visualization is difficult so cannot exclude an acute component. Patent and compressible right great saphenous vein. Normal flow patterns left common femoral vein. He has been started on Warfarin per his PCP. Instructed patient to keep leg elevated whenever sitting. He is to avoid standing for long periods of time, but he may walk with no restrictions. He is returning to work this week and does stand quite a bit there. Encouraged him to elevate his leg when he is on break. Encouraged patient it increase his protein intake and increase Vitamin C to 1,000 mg daily for wound healing. Wound culture obtained 03/01/22 which was positive for Staphylococcus saprophyticus, he completed Doxycycline. Follow up one week.
[2022-03-27 13:41] VITALS: BP 148/55; PULSE 87; RESP 20; TEMP 36.9
--- NOTE | 2022-03-27 15:21 | PN.PCM_ITS ---
History of Present Illness Date of Service: 03/27/22 Chief Complaint: Non healing right medial leg venous ulcer History of Wound: Patient is a 71 year old male who presents with a right medial leg ulcer that he states started 4-5 weeks ago. He saw his PCP's PA on 02/06/22 and they treated him with Cephalexin and Doxycycline for cellulitis and ordered a venous ultrasound of his right leg to rule out DVT. Patient has not been placing anything on his ulcer. He states he has been off work since seeing the PA. He is supposed to start back to work this week. 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 He states that this ulcer is very painful. Wound care - Collagen hydrogel covered with adaptic and topped with gauze. Today he denies fever, chills, nausea, vomiting. Progress of Wound: Right medial leg ulcer has improved, there continues to have fibrous tissue at the base. It is still very painful. Objective Data Objective Data Vital Signs: Vital Signs Temp Pulse Resp BP 98.5 F 87 20 H 148/55 H 03/27/22 13:41 03/27/22 13:41 03/27/22 13:41 03/27/22 13:41 Charges/Coding Procedures Integumentary [id number]: [id number] Deborah subq tissue 20 sq cm/< Physical Exam Const alert and oriented x3 HEENT normocephalic HEENT Narrative: Hard of hearing, wears hearing aids Resp normal respiratory effort Effort and Inspection: able to speak in complete sentences Cardio regular rate Peripheral Pulses: dorsalis pedis pulses present bilateral 2+ Extremity full ROM and normal capillary refill Extremity Narrative: +2 edema on right lower leg Skin Skin Narrative: Right leg swelling +2-edema Wound Narrative: Right medial leg ulcer is smaller. Continues to have fibrous tissue in the base and is very painful. Neuro oriented x3 Psych mental status grossly normal Debridement Note Debridement Note Wound debrided: medial distal leg ulcer cluster Laterality: Right Type of Debridement: Excisional debridement Anesthesia Used: 5% Lidocaine Gel Depth: Down to and including healthy tissue and in the subcutaneous layer Percentage of wound debrided: 100 Instrument Used: 5mm curette Tissue Removed: Devitalized tissue and slough Severity: Fat Layer Exposed Amount of bleeding with debridement: Mild Bleeding Controlled with: Compression and gauze Patient tolerated procedure: Patient tolerated procedure well Debridement Free Text: Debridement is very painful for patient Post-Debridement Measurements and Additional Note: Post-Debridement Measurements/Treatment WC - Nurse 1 - General Ulcer Assessment Start: 03/13/22 14:58 Freq: Status: Active Protocol: LATOYA Activity Type Activity Date Activity User E-sign Co-sign Detail Recorded Client Recorded Date Recorded By Document 03/13/22 15:00 PL [id number] 03/13/22 15:06 PL Document 03/20/22 14:32 KR [id number] 03/20/22 14:33 KR Document 03/27/22 13:41 DL [id number] 03/27/22 13:47 DL 03/13/22 03/20/22 03/27/22 15:00 14:32 13:41 WC - Today's Visit Information Type of service Follow-up Visit Follow-up Visit Follow-up Visit (Physician/PERSONAL LINES ADVISOR (Physician/PERSONAL LINES ADVISOR (Physician/PERSONAL LINES ADVISOR ) ) ) Arrival Mode Ambulatory Ambulatory Ambulatory Transfer Assistance None None Patient Identification Verified (Name & Yes Yes Yes ) Patient Requires Transmission-Based No No Precautions Safety Precautions NA Vital Signs Temperature (97.8 F-99.1 F) 97.8 F 97.1 F L 98.5 F Temperature Source Temporal Temporal Temporal Pulse Rate (60-100) 94 67 87 Pulse Location Monitor Monitor Respiratory Rate (12-18) 18 20 H Respiratory rate source Observation Blood Pressure (90/60-120/80) 138/75 H 142/94 H 148/55 H Blood Pressure Mean (mm Hg) 96 110 86 Source Monitor Monitor Position Semi-Fowlers Blood Pressure Location Left Arm History Since Last Visit- (Skip if this is Patient's initial visit) Have you changed medications since your No No No last visit? Any new allergies or adverse reactions No No No Had a fall/change in ADL's that may No No No increase risk of falls Signs or symptoms of abuse and/or No No No neglect since last visit Have you been in the hospital since your No No No last visit? Has dressing in place as prescribed Yes Yes No Has compression in place as prescribed Yes Yes No Has offloadiing in place as prescribed N/A N/A N/A Experienced any changes in pain level or No No No management Left Footwear Regular Shoe Right Footwear Regular Shoe Pain Scale: 0-10 Numeric Is Patient Pain Free? Yes Yes Yes WC - Nurse 1 - General Ulcer Measurement Start: 03/13/22 14:58 Freq: Status: Active Protocol: Activity Type Activity Date Activity User E-sign Co-sign Detail Recorded Client Recorded Date Recorded By Document 03/13/22 15:00 PL [id number] 03/13/22 15:06 PL Document 03/20/22 14:32 KR [id number] 03/20/22 14:33 KR Document 03/27/22 13:41 DL [id number] 03/27/22 13:47 DL 03/13/22 03/20/22 03/27/22 15:00 14:32 13:41 Wound Center Nurse 1 #1 Right Medial LE -Combined with other wound No -Current Size (cm) - Length 1.5 0.9 0.9 -Current Size (cm) - Width 1.5 0.9 1 -Current Size (cm) - Depth 0.1 0.1 0.1 -Total Square Cm 2.25 0.81 0.9 -Photo Taken No Yes -Epithelialization Small 1-33% -Tunneling No -Undermining/Tunneling No -Circular Undermining No -Exudate Amt Medium Small Small -Exudate Type Serosanguineous Serosanguineous -Wound Margin Distinct, Distinct, Outline Outline Attached Attached -Granulation Amt Medium (34-66%) Medium (34-66%) Large (67-100%) -Granulation Quality Pale Red Red -Slough/Fibrin Yes -Necrosis Amt Medium (34-66%) None Present (0 Small (1-33%) %) -Necrotic Tissue Type Adherent Slough Adherent Slough -Texture (Dee-wound Skin Appearance) Assessed, Scarring Scarring -Moisture (Dee-wound Skin Appearance) No Abnormality, No Abnormality, Assessed Dry/Scaly -Color (Dee-wound Skin Appearance) No Abnormality, Hemosiderin Assessed Staining -Temperature (Dee-wound Skin No Abnormality No Abnormality Appearance) (Pt Warm) (Pt Warm) -Tenderness on Palpation (Dee-wound No No Skin Appearance) -Ulcer Cleansing Soap and Water Rinsed/ Rinsed/ Irrigated with Irrigated with Saline Saline -Foul Odor after Cleansing No No No -Anesthetic Used 5% Lidocaine 5% Lidocaine 5% Lidocaine Gel Gel Gel Right Calf (cm) 47 44.1 Right Ankle (cm) 29.5 27.5 WC - Nurse 2 - General Ulcer CM Notes Start: 03/13/22 14:58 Freq: Status: Active Protocol: Activity Type Activity Date Activity User E-sign Co-sign Detail Recorded Client Recorded Date Recorded By Document 03/13/22 15:29 [id number] 03/13/22 15:32 MW Document 03/20/22 14:47 [id number] 03/20/22 14:51 JF Document 03/27/22 14:14 [id number] 03/27/22 14:16 03/13/22 03/20/22 03/27/22 15:29 14:47 14:14 Wound Center Nurse 2 #1 Right Medial LE -Time 15:30 14:49 14:15 -Correct Patient Yes Yes Yes -Correct Side, Site, Position Yes Yes Yes -Correct Procedure Yes Yes Yes -Procedure Performed Yes Yes Yes -Type of Procedure Debridement Debridement Debridement -Clinical Debridement Subcutaneous Subcutaneous Subcutaneous -Tissue Removed Subcutaneous Subcutaneous Subcutaneous -Post Debridement (cm) - Length 4.5 1.0 1.1 -Post Debridement (cm) - Width 2.5 1.0 1.1 -Post Debridement (cm) - Depth 0.1 0.1 0.1 -Total Square (Post) (cm) 11.25 1.00 1.21 -Area of Debridement (cm) - Length 4.5 1.0 1.1 -Area of Debridement (cm) - Width 2.5 1.0 1.1 -Total Square (Area) (cm) 11.25 1.00 1.21 -Tunneling No No No -Undermining/Tunneling No No No -Circular Undermining No No No -Wound/Ulcer Outcome Not Healed Not Healed Not Healed -Ulcer Cleansing Rinsed/ Rinsed/ Rinsed/ Irrigated with Irrigated with Irrigated with Saline Saline Saline -Foul Odor after Cleansing No No No -Bioengineered Tissue No No No -Bleeding Controlled with Pressure Pressure Pressure -Treatment Response Procedure Procedure Procedure Tolerated Well Tolerated Well Tolerated Well -Offloading No No No -Debridement - Subq, 1st 20sq cm Yes Yes Yes Pain Scale: 0-10 Numeric Is Patient Pain Free? Yes Yes Yes - Nurse 3 - General Ulcer D/C NN Start: 03/13/22 14:58 Freq: Status: Active Protocol: Activity Type Activity Date Activity User E-sign Co-sign Detail Recorded Client Recorded Date Recorded By Document 03/13/22 15:45 AK [id number] 03/13/22 15:46 AK Document 03/20/22 14:58 RB [id number] 03/20/22 15:02 RB Document 03/27/22 14:27 [facility] [id number] 03/27/22 14:28 [facility] 03/13/22 03/20/22 03/27/22 15:45 14:58 14:27 Wound Care Nurse 3 #1 Right Medial LE -Ulcer Cleansing Rinsed/ Rinsed/ Rinsed/ Irrigated with Irrigated with Irrigated with Saline Saline Saline -Foul Odor after Cleansing No No -Negative Pressure Wound Therapy N/A -Primary Dressing Applied Fibracol Plus C Hydrogel ($), 4x4,NonAdherent NonAdherent Contact Layer Contact Layer -Other Dressing ABD hydrogel -Primary Dressing Covered/Secured with Dry Gauze, Dry Gauze,Dry Dry Gauze & Secured with Gauze & Roll Roll Gauze, Tape Gauze,Secured Secured with with Tape Tape -Fibracol Plus 4x4 1 Right -Tubular Bandage Double Layer Double Layer -Size of Tubigrip Used Size E Size E -Size E ($) 2 1 Treatment Response Procedure Tolerated Well Pain Scale: 0-10 Numeric Is Patient Pain Free? Yes Yes Yes - Visit Discharge Discharge Condition Stable Stable Stable Ambulatory Status Ambulatory Ambulatory Ambulatory Transportation Private Auto Private Auto Private Auto Medication Reconcilliation completed & Yes No provided to patient/care provider Clinical Summary of Care Provided Yes Yes Assessment/Plan Assessment/Plan (1) Ulcer of right lower extremity with fat layer exposed: CODE(S): L97.912 - Non-pressure chronic ulcer of unspecified part of right lower leg with fat layer exposed (2) Swelling of right lower extremity: CODE(S): M79.89 - Other specified soft tissue disorders (3) Blood clot in vein: CODE(S): I82.90 - Acute embolism and thrombosis of unspecified vein (4) Peripheral vascular disease: CODE(S): I73.9 - Peripheral vascular disease, unspecified PLAN: Plan Patient was evaluated at the wound healing center and a debridement was performed as documented. SHAZIA's done at the wound center today, 02/20/22. Right SHAZIA = 1.12, Left SHAZIA = 1.21. Wound care - Collagen hydrogel topped Adaptic then covered with gauze daily after washing with soap and water. Place double tubigrip for compression. Ordered arterial studies. Venous duplex of right leg on 02/08/22 showed Partially compressible femoral vein with echogenic material consistent with chronic deep venous thrombosis. Visualization is difficult so cannot exclude an acute component. Patent and compressible right great saphenous vein. Normal flow patterns left common femoral vein. He has been started on Warfarin per his PCP. Instructed patient to keep leg elevated whenever sitting. He is to avoid standing for long periods of time, but he may walk with no restrictions. He is returning to work this week and does stand quite a bit there. Encouraged him to elevate his leg when he is on break. Encouraged patient it increase his protein intake and increase Vitamin C to 1,000 mg daily for wound healing. Wound culture obtained 03/01/22 which was positive for Staphylococcus saprophyticus, he completed Doxycycline. Follow up one week.
[2022-04-03 14:01] VITALS: BP 133/52; PULSE 77; TEMP 36.5
--- NOTE | 2022-04-03 16:39 | PCM.WC.PN ---
History of Present Illness Date of Service: 04/03/22 Chief Complaint: Non healing right medial leg venous ulcer History of Wound: Patient is a 71 year old male who presents with a right medial leg ulcer that he states started 4-5 weeks ago. He saw his PCP's PA on 02/06/22 and they treated him with Cephalexin and Doxycycline for cellulitis and ordered a venous ultrasound of his right leg to rule out DVT. Patient has not been placing anything on his ulcer. He states he has been off work since seeing the PA. He is supposed to start back to work this week. 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 He states that this ulcer is very painful. Wound care - Moistened Fibricol + covered with adaptic and topped with gauze. Today he denies fever, chills, nausea, vomiting. Progress of Wound: Right medial leg ulcer has improved, there continues to have fibrous tissue at the base. It is still very painful. Objective Data Objective Data Vital Signs: Vital Signs Temp Pulse Resp BP 97.7 F L 77 20 H 133/52 H 04/03/22 14:01 04/03/22 14:01 03/27/22 13:41 04/03/22 14:01 Charges/Coding Procedures Integumentary 111xxx-113xx: [id number] Deborah subq tissue 20 sq cm/< Physical Exam Const alert and oriented x3 HEENT normocephalic HEENT Narrative: Hard of hearing, wears hearing aids Resp normal respiratory effort Effort and Inspection: able to speak in complete sentences Cardio regular rate Peripheral Pulses: dorsalis pedis pulses present bilateral 2+ Extremity full ROM and normal capillary refill Extremity Narrative: +2 edema on right lower leg Skin Skin Narrative: Right leg swelling +2-edema Wound Narrative: Right medial leg ulcer is slightly smaller. The fibrous tissue in the base is less, it continues to be very painful. Neuro oriented x3 Psych mental status grossly normal Debridement Note Debridement Note Wound debrided: medial distal leg ulcer cluster Laterality: Right Type of Debridement: Excisional debridement Anesthesia Used: 5% Lidocaine Gel Depth: Down to and including healthy tissue and in the subcutaneous layer Percentage of wound debrided: 100 Instrument Used: 5mm curette Tissue Removed: Devitalized tissue and slough Severity: Fat Layer Exposed Amount of bleeding with debridement: Mild Bleeding Controlled with: Compression and gauze Patient tolerated procedure: Patient tolerated procedure well Debridement Free Text: Debridement is very painful for patient Post-Debridement Measurements and Additional Note: Post-Debridement Measurements/Treatment WC - Nurse 1 - General Ulcer Assessment Start: 03/13/22 14:58 Freq: Status: Active Protocol: LATOYA Activity Type Activity Date Activity User E-sign Co-sign Detail Recorded Client Recorded Date Recorded By Document 03/13/22 15:00 PL [id number] 03/13/22 15:06 PL Document 03/20/22 14:32 KR [id number] 03/20/22 14:33 KR Document 03/27/22 13:41 DL [id number] 03/27/22 13:47 DL Document 04/03/22 14:01 KR [id number] 04/03/22 14:02 KR 03/13/22 03/20/22 03/27/22 15:00 14:32 13:41 WC - Today's Visit Information Type of service Follow-up Visit Follow-up Visit Follow-up Visit (Physician/READING EFFICIENCY COURSE DIRECTOR (Physician/READING EFFICIENCY COURSE DIRECTOR (Physician/READING EFFICIENCY COURSE DIRECTOR ) ) ) Arrival Mode Ambulatory Ambulatory Ambulatory Transfer Assistance None None Patient Identification Verified (Name & Yes Yes Yes ) Patient Requires Transmission-Based No No Precautions Safety Precautions NA Vital Signs Temperature (97.8 F-99.1 F) 97.8 F 97.1 F L 98.5 F Temperature Source Temporal Temporal Temporal Pulse Rate (60-100) 94 67 87 Pulse Location Monitor Monitor Respiratory Rate (12-18) 18 20 H Respiratory rate source Observation Blood Pressure (90/60-120/80) 138/75 H 142/94 H 148/55 H Blood Pressure Mean (mm Hg) 96 110 86 Source Monitor Monitor Position Semi-Fowlers Blood Pressure Location Left Arm History Since Last Visit- (Skip if this is Patient's initial visit) Have you changed medications since your No No No last visit? Any new allergies or adverse reactions No No No Had a fall/change in ADL's that may No No No increase risk of falls Signs or symptoms of abuse and/or No No No neglect since last visit Have you been in the hospital since your No No No last visit? Has dressing in place as prescribed Yes Yes No Has compression in place as prescribed Yes Yes No Has offloadiing in place as prescribed N/A N/A N/A Experienced any changes in pain level or No No No management Left Footwear Regular Shoe Right Footwear Regular Shoe Pain Scale: 0-10 Numeric Is Patient Pain Free? Yes Yes Yes 04/03/22 14:01 - Today's Visit Information Type of service Follow-up Visit (Physician/READING EFFICIENCY COURSE DIRECTOR ) Arrival Mode Ambulatory Transfer Assistance Patient Identification Verified (Name & Yes ) Patient Requires Transmission-Based Precautions Safety Precautions Vital Signs Temperature (97.8 F-99.1 F) 97.7 F L Temperature Source Temporal Pulse Rate (60-100) 77 Pulse Location Monitor Respiratory Rate (12-18) Respiratory rate source Blood Pressure (90/60-120/80) 133/52 H Blood Pressure Mean (mm Hg) 79 Source Monitor Position Sitting Blood Pressure Location Right Arm History Since Last Visit- (Skip if this is Patient's initial visit) Have you changed medications since your No last visit? Any new allergies or adverse reactions No Had a fall/change in ADL's that may No increase risk of falls Signs or symptoms of abuse and/or No neglect since last visit Have you been in the hospital since your No last visit? Has dressing in place as prescribed Yes Has compression in place as prescribed Yes Has offloadiing in place as prescribed N/A Experienced any changes in pain level or No management Left Footwear Regular Shoe Right Footwear Regular Shoe Pain Scale: 0-10 Numeric Is Patient Pain Free? Yes - Nurse 1 - General Ulcer Measurement Start: 03/13/22 14:58 Freq: Status: Active Protocol: Activity Type Activity Date Activity User E-sign Co-sign Detail Recorded Client Recorded Date Recorded By Document 03/13/22 15:00 PL [id number] 03/13/22 15:06 PL Document 03/20/22 14:32 KR [id number] 03/20/22 14:33 KR Document 03/27/22 13:41 DL [id number] 03/27/22 13:47 DL Document 04/03/22 14:01 KR [id number] 04/03/22 14:02 KR 03/13/22 03/20/22 03/27/22 15:00 14:32 13:41 Wound Center Nurse 1 #1 Right Medial LE -Combined with other wound No -Current Size (cm) - Length 1.5 0.9 0.9 -Current Size (cm) - Width 1.5 0.9 1 -Current Size (cm) - Depth 0.1 0.1 0.1 -Total Square Cm 2.25 0.81 0.9 -Photo Taken No Yes -Epithelialization Small 1-33% -Tunneling No -Undermining/Tunneling No -Circular Undermining No -Exudate Amt Medium Small Small -Exudate Type Serosanguineous Serosanguineous -Wound Margin Distinct, Distinct, Outline Outline Attached Attached -Granulation Amt Medium (34-66%) Medium (34-66%) Large (67-100%) -Granulation Quality Pale Red Red -Slough/Fibrin Yes -Necrosis Amt Medium (34-66%) None Present (0 Small (1-33%) %) -Necrotic Tissue Type Adherent Slough Adherent Slough -Texture (Dee-wound Skin Appearance) Assessed, Scarring Scarring -Moisture (Dee-wound Skin Appearance) No Abnormality, No Abnormality, Assessed Dry/Scaly -Color (Dee-wound Skin Appearance) No Abnormality, Hemosiderin Assessed Staining -Temperature (Dee-wound Skin No Abnormality No Abnormality Appearance) (Pt Warm) (Pt Warm) -Tenderness on Palpation (Dee-wound No No Skin Appearance) -Ulcer Cleansing Soap and Water Rinsed/ Rinsed/ Irrigated with Irrigated with Saline Saline -Foul Odor after Cleansing No No No -Anesthetic Used 5% Lidocaine 5% Lidocaine 5% Lidocaine Gel Gel Gel Right Calf (cm) 47 44.1 Right Ankle (cm) 29.5 27.5 04/03/22 14:01 Wound Center Nurse 1 #1 Right Medial LE -Combined with other wound -Current Size (cm) - Length 0.8 -Current Size (cm) - Width 1 -Current Size (cm) - Depth 0.1 -Total Square Cm 0.8 -Photo Taken -Epithelialization -Tunneling -Undermining/Tunneling -Circular Undermining -Exudate Amt Medium -Exudate Type Serosanguineous -Wound Margin Distinct, Outline Attached -Granulation Amt Medium (34-66%) -Granulation Quality [place] -Slough/Fibrin -Necrosis Amt Medium (34-66%) -Necrotic Tissue Type Adherent Slough -Texture (Dee-wound Skin Appearance) Assessed, Scarring -Moisture (Dee-wound Skin Appearance) No Abnormality, Assessed -Color (Dee-wound Skin Appearance) No Abnormality, Assessed -Temperature (Dee-wound Skin No Abnormality Appearance) (Pt Warm) -Tenderness on Palpation (Dee-wound No Skin Appearance) -Ulcer Cleansing Rinsed/ Irrigated with Saline -Foul Odor after Cleansing No -Anesthetic Used 5% Lidocaine Gel Right Calf (cm) 44 Right Ankle (cm) 27 WC - Nurse 2 - General Ulcer CM Notes Start: 03/13/22 14:58 Freq: Status: Active Protocol: Activity Type Activity Date Activity User E-sign Co-sign Detail Recorded Client Recorded Date Recorded By Document 03/13/22 15:29 MW [id number] 03/13/22 15:32 MW Document 03/20/22 14:47 [id number] 03/20/22 14:51 Document 03/27/22 14:14 [id number] 03/27/22 14:16 Document 04/03/22 14:23 [id number] 04/03/22 14:26 03/13/22 03/20/22 03/27/22 15:29 14:47 14:14 Wound Center Nurse 2 #1 Right Medial LE -Time 15:30 14:49 14:15 -Correct Patient Yes Yes Yes -Correct Side, Site, Position Yes Yes Yes -Correct Procedure Yes Yes Yes -Procedure Performed Yes Yes Yes -Type of Procedure Debridement Debridement Debridement -Clinical Debridement Subcutaneous Subcutaneous Subcutaneous -Tissue Removed Subcutaneous Subcutaneous Subcutaneous -Post Debridement (cm) - Length 4.5 1.0 1.1 -Post Debridement (cm) - Width 2.5 1.0 1.1 -Post Debridement (cm) - Depth 0.1 0.1 0.1 -Total Square (Post) (cm) 11.25 1.00 1.21 -Area of Debridement (cm) - Length 4.5 1.0 1.1 -Area of Debridement (cm) - Width 2.5 1.0 1.1 -Total Square (Area) (cm) 11.25 1.00 1.21 -Tunneling No No No -Undermining/Tunneling No No No -Circular Undermining No No No -Wound/Ulcer Outcome Not Healed Not Healed Not Healed -Ulcer Cleansing Rinsed/ Rinsed/ Rinsed/ Irrigated with Irrigated with Irrigated with Saline Saline Saline -Foul Odor after Cleansing No No No -Bioengineered Tissue No No No -Bleeding Controlled with Pressure Pressure Pressure -Treatment Response Procedure Procedure Procedure Tolerated Well Tolerated Well Tolerated Well -Offloading No No No -Debridement - Subq, 1st 20sq cm Yes Yes Yes Pain Scale: 0-10 Numeric Is Patient Pain Free? Yes Yes Yes 04/03/22 14:23 Wound Center Nurse 2 #1 Right Medial LE -Time 14:24 -Correct Patient Yes -Correct Side, Site, Position Yes -Correct Procedure Yes -Procedure Performed Yes -Type of Procedure Debridement -Clinical Debridement Subcutaneous -Tissue Removed Subcutaneous -Post Debridement (cm) - Length 1.0 -Post Debridement (cm) - Width 1.2 -Post Debridement (cm) - Depth 0.1 -Total Square (Post) (cm) 1.20 -Area of Debridement (cm) - Length 1.0 -Area of Debridement (cm) - Width 1.2 -Total Square (Area) (cm) 1.20 -Tunneling No -Undermining/Tunneling No -Circular Undermining No -Wound/Ulcer Outcome Not Healed -Ulcer Cleansing Rinsed/ Irrigated with Saline -Foul Odor after Cleansing No -Bioengineered Tissue No -Bleeding Controlled with Pressure -Treatment Response Procedure Tolerated Well -Offloading No -Debridement - Subq, 1st 20sq cm Yes Pain Scale: 0-10 Numeric Is Patient Pain Free? Yes WC - Nurse 3 - General Ulcer D/C NN Start: 03/13/22 14:58 Freq: Status: Active Protocol: Activity Type Activity Date Activity User E-sign Co-sign Detail Recorded Client Recorded Date Recorded By Document 03/13/22 15:45 AK [id number] 03/13/22 15:46 AK Document 03/20/22 14:58 RB [id number] 03/20/22 15:02 RB Document 03/27/22 14:27 [facility] [id number] 03/27/22 14:28 BM Document 04/03/22 14:39 AK [id number] 04/03/22 14:40 AK 03/13/22 03/20/22 03/27/22 15:45 14:58 14:27 Wound Care Nurse 3 #1 Right Medial LE -Ulcer Cleansing Rinsed/ Rinsed/ Rinsed/ Irrigated with Irrigated with Irrigated with Saline Saline Saline -Foul Odor after Cleansing No No -Negative Pressure Wound Therapy N/A -Primary Dressing Applied Fibracol Plus C Hydrogel ($), 4x4,NonAdherent NonAdherent Contact Layer Contact Layer -Other Dressing ABD hydrogel -Primary Dressing Covered/Secured with Dry Gauze, Dry Gauze,Dry Dry Gauze & Secured with Gauze & Roll Roll Gauze, Tape Gauze,Secured Secured with with Tape Tape -Fibracol Plus 4x4 1 Right -Lotion applied to leg before compression wrap -Multi-Layered Wrap Application -Tubular Bandage Double Layer Double Layer -Size of Tubigrip Used Size E Size E -Size E ($) 2 1 Treatment Response Procedure Tolerated Well Pain Scale: 0-10 Numeric Is Patient Pain Free? Yes Yes Yes WC - Visit Discharge Discharge Condition Stable Stable Stable Ambulatory Status Ambulatory Ambulatory Ambulatory Transportation Private Auto Private Auto Private Auto Accompanied by Medication Reconcilliation completed & Yes No provided to patient/care provider Clinical Summary of Care Provided Yes Yes 04/03/22 14:39 Wound Care Nurse 3 #1 Right Medial LE -Ulcer Cleansing Rinsed/ Irrigated with Saline -Foul Odor after Cleansing No -Negative Pressure Wound Therapy N/A -Primary Dressing Applied Fibracol Plus 4x4 -Other Dressing -Primary Dressing Covered/Secured with -Fibracol Plus 4x4 1 Right -Lotion applied to leg before No compression wrap -Multi-Layered Wrap Application Multi-Layer Comp - Right ($ ) -Tubular Bandage -Size of Tubigrip Used -Size E ($) Treatment Response Pain Scale: 0-10 Numeric Is Patient Pain Free? Yes WC - Visit Discharge Discharge Condition Stable Ambulatory Status Transportation Private Auto Accompanied by Medication Reconcilliation completed & Yes provided to patient/care provider Clinical Summary of Care Provided Yes Assessment/Plan Assessment/Plan (1) Ulcer of right lower extremity with fat layer exposed: CODE(S): L97.912 - Non-pressure chronic ulcer of unspecified part of right lower leg with fat layer exposed (2) Swelling of right lower extremity: CODE(S): M79.89 - Other specified soft tissue disorders (3) Blood clot in vein: CODE(S): I82.90 - Acute embolism and thrombosis of unspecified vein (4) Peripheral vascular disease: CODE(S): I73.9 - Peripheral vascular disease, unspecified PLAN: Plan Patient was evaluated at the wound healing center and a debridement was performed as documented. SHAZIA's done at the wound center today, 02/20/22. Right SHAZIA = 1.12, Left SHAZIA = 1.21. Wound care - Fibricol + topped Adaptic then covered with gauze daily after washing with soap and water. Place double tubigrip for compression. (he did not like the collagen hydrogel). Light 3M 2 layer wraps for compression. Ordered arterial studies. Venous duplex of right leg on 02/08/22 showed Partially compressible femoral vein with echogenic material consistent with chronic deep venous thrombosis. Visualization is difficult so cannot exclude an acute component. Patent and compressible right great saphenous vein. Normal flow patterns left common femoral vein. He has been started on Warfarin per his PCP. Instructed patient to keep leg elevated whenever sitting. He is to avoid standing for long periods of time, but he may walk with no restrictions. He is returning to work this week and does stand quite a bit there. Encouraged him to elevate his leg when he is on break. Encouraged patient it increase his protein intake and increase Vitamin C to 1,000 mg daily for wound healing. Wound culture obtained 03/01/22 which was positive for Staphylococcus saprophyticus, he completed Doxycycline. Follow up Friday for a nurse visit to have 3M wraps changed. Follow up one week with me.
== END 2022-04-05 23:59 | disposition home or self-care (01) ==
LOC: WC 13:45
PROVIDERS: PCP Family Medicine; Visit Provider Nurse Practitioner Family
DX: L97.812 Non-pressure chronic ulcer of other part of right lower leg with fat layer exposed (principal); I73.9 Peripheral vascular disease, unspecified; M79.89 Other specified soft tissue disorders; Z79.01 Long term (current) use of anticoagulants; Z86.718 Personal history of other venous thrombosis and embolism; Z86.711 Personal history of pulmonary embolism
CPT/HCPCS: 11042; 29581

== ENCOUNTER 2022-04-23 11:12 | Outpatient (RCR) | payer MEDICARE, SELFPAY ==
[2022-04-10 16:57] LABS: International Normalized Ratio 1.1; Prothrombin Time (Protime)PT. 13.6 SECONDS (11.7-14.9)
[2022-04-23 12:39] LABS: International Normalized Ratio 1.3; Prothrombin Time (Protime)PT. 15.4 SECONDS (11.7-14.9)
== END 2022-05-06 23:59 ==
LOC: BIMLAB 11:12
PROVIDERS: PCP Family Medicine; Referring Provider Family Medicine; Visit Provider Family Medicine
DX: I82.509 Chronic embolism and thrombosis of unspecified deep veins of unspecified lower extremity (principal); Z79.01 Long term (current) use of anticoagulants
CPT/HCPCS: 36415; 85610

== ENCOUNTER 2022-05-01 10:45 | Outpatient (RCR) | payer MEDICARE, SELFPAY ==
[2022-04-06 01:35] VITALS: BP 133/52; PULSE 77; RESP 20; TEMP 36.5
[2022-04-10 14:07] VITALS: BP 145/77; PULSE 68; TEMP 35.7
--- NOTE | 2022-04-10 14:39 | PCM.WC.PN ---
History of Present Illness Date of Service: 04/10/22 Chief Complaint: Non healing right medial leg venous ulcer History of Wound: Patient is a 71 year old male who presents with a right medial leg ulcer that he states started 4-5 weeks ago. He saw his PCP's PA on 02/06/22 and they treated him with Cephalexin and Doxycycline for cellulitis and ordered a venous ultrasound of his right leg to rule out DVT. Patient has not been placing anything on his ulcer. He states he has been off work since seeing the PA. He is supposed to start back to work this week. 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 He states that this ulcer is very painful. Wound care - Collagen hydrogel covered with adaptic and topped with gauze. Today he denies fever, chills, nausea, vomiting. Progress of Wound: Patient did not tolerate the 3M 2 layer wraps. He states he remove them the night that they were put on. He states he is wearing compression but he is only wearing a single layer Tubigrip. His edema continues to be at least a +2. His ulcer showing no improvement, continues to be very painful. Objective Data Objective Data Vital Signs: Vital Signs Temp Pulse Resp BP 96.2 F L 68 20 H 145/77 H 04/10/22 14:07 04/10/22 14:07 04/06/22 01:35 04/10/22 14:07 Charges/Coding Procedures Integumentary [id number]: [id number] Deborah subq tissue 20 sq cm/< Physical Exam Const alert and oriented x3 HEENT normocephalic HEENT Narrative: Hard of hearing, wears hearing aids Resp normal respiratory effort Effort and Inspection: able to speak in complete sentences Cardio regular rate Peripheral Pulses: dorsalis pedis pulses present bilateral 2+ Extremity full ROM and normal capillary refill Extremity Narrative: +2 edema on right lower leg Skin Wound Narrative: Right medial leg ulcer is showing no improvement. The base of the ulcer continues to have fibrous tissue and it continues to be very painful. Neuro oriented x3 Psych mental status grossly normal Debridement Note Debridement Note Wound debrided: medial distal leg ulcer cluster Laterality: Right Type of Debridement: Excisional debridement Anesthesia Used: 5% Lidocaine Gel Depth: Down to and including healthy tissue and in the subcutaneous layer Percentage of wound debrided: 100 Instrument Used: 5mm curette Tissue Removed: Devitalized tissue and slough Severity: Fat Layer Exposed Amount of bleeding with debridement: Mild Bleeding Controlled with: Compression and gauze Patient tolerated procedure: Patient tolerated procedure well Debridement Free Text: Debridement is very painful for patient Post-Debridement Measurements and Additional Note: Post-Debridement Measurements/Treatment WC - Nurse 1 - General Ulcer Assessment Start: 04/09/22 07:13 Freq: Status: Active Protocol: LATOYA Activity Type Activity Date Activity User E-sign Co-sign Detail Recorded Client Recorded Date Recorded By Document 04/10/22 14:07 DANY [id number] 04/10/22 14:09 DANY 04/10/22 14:07 WC - Today's Visit Information Type of service Follow-up Visit (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 Any new allergies or adverse reactions No Had a fall/change in ADL's that may No increase risk of falls Signs or symptoms of abuse and/or No neglect since last visit Have you been in the hospital since your No last visit? Has dressing in place as prescribed Yes Has compression in place as prescribed No Has offloadiing in place as prescribed N/A Experienced any changes in pain level or No management Left Footwear Regular Shoe Right Footwear Regular Shoe Pain Scale: 0-10 Numeric Is Patient Pain Free? Yes - Nurse 1 - General Ulcer Measurement Start: 04/09/22 07:13 Freq: Status: Active Protocol: Activity Type Activity Date Activity User E-sign Co-sign Detail Recorded Client Recorded Date Recorded By Document 04/10/22 14:07 DANY [id number] 04/10/22 14:09 DANY 04/10/22 14:07 Wound Center Nurse 1 #1 Right Medial LE -Current Size (cm) - Length 0.7 -Current Size (cm) - Width 0.6 -Current Size (cm) - Depth 0.2 -Total Square Cm 0.42 -Exudate Amt Small -Exudate Type Serosanguineous -Wound Margin Distinct, Outline Attached -Granulation Amt Small (1-33%) -Granulation Quality Red -Necrosis Amt None Present (0 %) -Texture (Dee-wound Skin Appearance) Assessed, Scarring -Moisture (Dee-wound Skin Appearance) No Abnormality, Assessed -Color (Dee-wound Skin Appearance) No Abnormality, Assessed -Temperature (Dee-wound Skin No Abnormality Appearance) (Pt Warm) -Tenderness on Palpation (Dee-wound No Skin Appearance) -Ulcer Cleansing Rinsed/ Irrigated with Saline -Foul Odor after Cleansing No -Anesthetic Used 5% Lidocaine Gel WC - Nurse 2 - General Ulcer CM Notes Start: 04/09/22 07:13 Freq: Status: Active Protocol: Activity Type Activity Date Activity User E-sign Co-sign Detail Recorded Client Recorded Date Recorded By Document 04/10/22 14:21 [id number] 04/10/22 14:21 04/10/22 14:21 Wound Center Nurse 2 -Time 14:21 -Correct Patient Yes -Correct Side, Site, Position Yes -Correct Procedure Yes -Procedure Performed Yes -Type of Procedure Debridement -Clinical Debridement Subcutaneous -Tissue Removed Subcutaneous -Post Debridement (cm) - Length 0.7 -Post Debridement (cm) - Width 0.8 -Post Debridement (cm) - Depth 0.1 -Total Square (Post) (cm) 0.56 -Area of Debridement (cm) - Length 0.7 -Area of Debridement (cm) - Width 0.8 -Total Square (Area) (cm) 0.56 -Tunneling No -Undermining/Tunneling No -Circular Undermining No -Wound/Ulcer Outcome Not Healed -Ulcer Cleansing Rinsed/ Irrigated with Saline -Foul Odor after Cleansing No -Bioengineered Tissue No -Bleeding Controlled with Pressure -Treatment Response Procedure Tolerated Well -Offloading No -Debridement - Subq, 1st 20sq cm Yes Pain Scale: 0-10 Numeric Is Patient Pain Free? Yes SHARLA - Nurse 3 - General Ulcer D/C NN Start: 04/09/22 07:13 Freq: Status: Active Protocol: Activity Type Activity Date Activity User E-sign Co-sign Detail Recorded Client Recorded Date Recorded By Document 04/10/22 14:29 DANY [id number] 04/10/22 14:30 KR 04/10/22 14:29 Wound Care Nurse 3 #1 Right Medial LE -Ulcer Cleansing Rinsed/ Irrigated with Saline -Primary Dressing Applied C Hydrogel ($) -Primary Dressing Covered/Secured with Dry Gauze, Secured with Tape Right -Tubular Bandage Double Layer -Size of Tubigrip Used Size E -Size E ($) 2 Left -Tubular Bandage Double Layer -Size of Tubigrip Used Size E -Size E ($) 2 Pain Scale: 0-10 Numeric Is Patient Pain Free? Yes WC - Visit Discharge Discharge Condition Stable Ambulatory Status Ambulatory Transportation Private Auto Accompanied by Assessment/Plan Assessment/Plan (1) Ulcer of right lower extremity with fat layer exposed: CODE(S): L97.912 - Non-pressure chronic ulcer of unspecified part of right lower leg with fat layer exposed (2) Swelling of right lower extremity: CODE(S): M79.89 - Other specified soft tissue disorders (3) Blood clot in vein: CODE(S): I82.90 - Acute embolism and thrombosis of unspecified vein (4) Peripheral vascular disease: CODE(S): I73.9 - Peripheral vascular disease, unspecified PLAN: Plan Patient was evaluated at the wound healing center and a debridement was performed as documented. SHAZIA's done at the wound center today, 02/20/22. Right SHAZIA = 1.12, Left SHAZIA = 1.21. Wound care - Moistened Fibricol + topped Adaptic then covered with gauze daily after washing with soap and water. Place double tubigrip for compression. He did not tolerate the 3M double layer wraps well. Wound care today at the wound center will be collagen hydrogel with Adaptic since he did not bring his Fibracol with him. Ordered arterial studies. Still waiting for him to have them completed. Venous duplex of right leg on 02/08/22 showed Partially compressible femoral vein with echogenic material consistent with chronic deep venous thrombosis. Visualization is difficult so cannot exclude an acute component. Patent and compressible right great saphenous vein. Normal flow patterns left common femoral vein. He has been started on Warfarin per his PCP. Instructed patient to keep leg elevated whenever sitting. He is to avoid standing for long periods of time, but he may walk with no restrictions. He is returning to work this week and does stand quite a bit there. Encouraged him to elevate his leg when he is on break. Encouraged patient it increase his protein intake and increase Vitamin C to 1,000 mg daily for wound healing. Wound culture obtained 03/01/22 which was positive for Staphylococcus saprophyticus, he completed Doxycycline. Follow up 1 week.
[2022-04-24 10:27] VITALS: BP 153/70; PULSE 79; RESP 20; TEMP 36.1
--- NOTE | 2022-04-24 12:19 | PCM.WC.PN ---
History of Present Illness Date of Service: 04/24/22 Chief Complaint: Non healing right medial leg venous ulcer History of Wound: Patient is a 71 year old male who presents with a right medial leg ulcer that he states started 4-5 weeks ago. He saw his PCP's PA on 02/06/22 and they treated him with Cephalexin and Doxycycline for cellulitis and ordered a venous ultrasound of his right leg to rule out DVT. Patient has not been placing anything on his ulcer. He states he has been off work since seeing the PA. He is supposed to start back to work this week. 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 He states that this ulcer is very painful. Wound care - Collagen hydrogel covered with adaptic and topped with gauze. Today he denies fever, chills, nausea, vomiting. Progress of Wound: Patient has +2-+3 edema. He states he is wearing compression but he is only wearing a single layer Tubigrip. His ulcer bed seems to be less fibrous. Objective Data Objective Data Vital Signs: Vital Signs Temp Pulse Resp BP 97 F L 79 20 H 153/70 H 04/24/22 10:27 04/24/22 10:27 04/24/22 10:27 04/24/22 10:27 Charges/Coding Procedures Integumentary 111xxx-113xx: [id number] Deborah subq tissue 20 sq cm/< Debridement Note Debridement Note Wound debrided: medial distal leg ulcer cluster Laterality: Right Type of Debridement: Excisional debridement Anesthesia Used: 5% Lidocaine Gel Depth: Down to and including healthy tissue and in the subcutaneous layer Percentage of wound debrided: 100 Instrument Used: 5mm curette Tissue Removed: Devitalized tissue and slough Severity: Fat Layer Exposed Amount of bleeding with debridement: Mild Bleeding Controlled with: Compression and gauze Patient tolerated procedure: Patient tolerated procedure well Debridement Free Text: Debridement is very painful for patient Post-Debridement Measurements and Additional Note: Post-Debridement Measurements/Treatment WC - Nurse 1 - General Ulcer Assessment Start: 04/09/22 07:13 Freq: Status: Active Protocol: MARY BETHEXAntonio Activity Type Activity Date Activity User E-sign Co-sign Detail Recorded Client Recorded Date Recorded By Document 04/10/22 14:07 DANY [id number] 04/10/22 14:09 KR Document 04/24/22 10:27 DL [id number] 04/24/22 10:32 DL 04/10/22 04/24/22 14:07 10:27 - Today's Visit Information Type of service Follow-up Visit Follow-up Visit (Physician/MANAGER OF CORPORATE (Physician/MANAGER OF CORPORATE ) ) Arrival Mode Ambulatory Ambulatory Transfer Assistance None Patient Identification Verified (Name & Yes Yes ) Patient Requires Transmission-Based No Precautions Vital Signs Temperature (97.8 F-99.1 F) 96.2 F L 97 F L Temperature Source Temporal Temporal Pulse Rate (60-100) 68 79 Pulse Location Monitor Monitor Respiratory Rate (12-18) 20 H Respiratory rate source Observation Blood Pressure (90/60-120/80) 145/77 H 153/70 H Blood Pressure Mean (mm Hg) 99 97 Source Monitor Monitor Position Semi-Fowlers Blood Pressure Location Right Arm History Since Last Visit- (Skip if this is Patient's initial visit) Have you changed medications since your No No last visit? Any new allergies or adverse reactions No No Had a fall/change in ADL's that may No No increase risk of falls Signs or symptoms of abuse and/or No No neglect since last visit Have you been in the hospital since your No No last visit? Has dressing in place as prescribed Yes Yes Has compression in place as prescribed No No Has offloadiing in place as prescribed N/A N/A Experienced any changes in pain level or No No management Left Footwear Regular Shoe Right Footwear Regular Shoe Pain Scale: 0-10 Numeric Is Patient Pain Free? Yes Yes - Nurse 1 - General Ulcer Measurement Start: 04/09/22 07:13 Freq: Status: Active Protocol: Activity Type Activity Date Activity User E-sign Co-sign Detail Recorded Client Recorded Date Recorded By Document 04/10/22 14:07 KR [id number] 04/10/22 14:09 KR Document 04/24/22 10:27 DL [id number] 04/24/22 10:32 DL 04/10/22 04/24/22 14:07 10:27 Wound Center Nurse 1 #1 Right Medial LE -Current Size (cm) - Length 0.7 0.7 -Current Size (cm) - Width 0.6 0.8 -Current Size (cm) - Depth 0.2 0.1 -Total Square Cm 0.42 0.56 -Photo Taken No -Exudate Amt Small Small -Exudate Type Serosanguineous Serosanguineous -Wound Margin Distinct, Distinct, Outline Outline Attached Attached -Granulation Amt Small (1-33%) Large (67-100%) -Granulation Quality Red Red -Necrosis Amt None Present (0 Small (1-33%) %) -Necrotic Tissue Type Adherent Slough -Structure Exposed N/A -Texture (Dee-wound Skin Appearance) Assessed, Scarring Scarring -Moisture (Dee-wound Skin Appearance) No Abnormality, Dry/Scaly Assessed -Color (Dee-wound Skin Appearance) No Abnormality, Hemosiderin Assessed Staining -Temperature (Dee-wound Skin No Abnormality No Abnormality Appearance) (Pt Warm) (Pt Warm) -Tenderness on Palpation (Dee-wound No No Skin Appearance) -Ulcer Cleansing Rinsed/ Soap and Water Irrigated with Saline -Foul Odor after Cleansing No No -Anesthetic Used 5% Lidocaine 5% Lidocaine Gel Gel Right Calf (cm) 44.7 Right Ankle (cm) 28 - Nurse 2 - General Ulcer CM Notes Start: 04/09/22 07:13 Freq: Status: Active Protocol: Activity Type Activity Date Activity User E-sign Co-sign Detail Recorded Client Recorded Date Recorded By Document 04/10/22 14:21 [id number] 04/10/22 14:21 Document 04/24/22 10:45 [id number] 04/24/22 10:49 04/10/22 04/24/22 14:21 10:45 Wound Center Nurse 2 #1 Right Medial LE -Time 14:21 10:45 -Correct Patient Yes Yes -Correct Side, Site, Position Yes Yes -Correct Procedure Yes Yes -Procedure Performed Yes Yes -Type of Procedure Debridement Debridement -Clinical Debridement Subcutaneous Subcutaneous -Tissue Removed Subcutaneous Subcutaneous -Post Debridement (cm) - Length 0.7 0.7 -Post Debridement (cm) - Width 0.8 0.7 -Post Debridement (cm) - Depth 0.1 0.1 -Total Square (Post) (cm) 0.56 0.49 -Area of Debridement (cm) - Length 0.7 0.7 -Area of Debridement (cm) - Width 0.8 0.7 -Total Square (Area) (cm) 0.56 0.49 -Tunneling No No -Undermining/Tunneling No No -Circular Undermining No No -Wound/Ulcer Outcome Not Healed Not Healed -Ulcer Cleansing Rinsed/ Rinsed/ Irrigated with Irrigated with Saline Saline -Foul Odor after Cleansing No No -Bioengineered Tissue No No -Bleeding Controlled with Pressure Pressure -Treatment Response Procedure Procedure Tolerated Well Tolerated Well -Offloading No No -Debridement - Subq, 1st 20sq cm Yes Yes Pain Scale: 0-10 Numeric Is Patient Pain Free? Yes Yes - Nurse 3 - General Ulcer D/C NN Start: 04/09/22 07:13 Freq: Status: Active Protocol: Activity Type Activity Date Activity User E-sign Co-sign Detail Recorded Client Recorded Date Recorded By Document 04/10/22 14:29 KR [id number] 04/10/22 14:30 KR Document 04/24/22 11:04 RB [id number] 04/24/22 11:05 RB 04/10/22 04/24/22 14:29 11:04 Wound Care Nurse 3 #1 Right Medial LE -Ulcer Cleansing Rinsed/ Rinsed/ Irrigated with Irrigated with Saline Saline -Primary Dressing Applied C Hydrogel ($) Mepilex Border -Other Dressing hydrogel -Primary Dressing Covered/Secured with Dry Gauze, Secured with Tape -Mepilex Border 1 Right -Tubular Bandage Double Layer Double Layer -Size of Tubigrip Used Size E Size E -Size E ($) 2 2 Left -Tubular Bandage Double Layer -Size of Tubigrip Used Size E -Size E ($) 2 Treatment Response Procedure Tolerated Well Pain Scale: 0-10 Numeric Is Patient Pain Free? Yes Yes - Visit Discharge Discharge Condition Stable Stable Ambulatory Status Ambulatory Ambulatory Transportation Private Auto Private Auto Accompanied by Medication Reconcilliation completed & No provided to patient/care provider Clinical Summary of Care Provided Yes Assessment/Plan Assessment/Plan (1) Ulcer of right lower extremity with fat layer exposed: CODE(S): L97.912 - Non-pressure chronic ulcer of unspecified part of right lower leg with fat layer exposed (2) Swelling of right lower extremity: CODE(S): M79.89 - Other specified soft tissue disorders (3) Blood clot in vein: CODE(S): I82.90 - Acute embolism and thrombosis of unspecified vein (4) Peripheral vascular disease: CODE(S): I73.9 - Peripheral vascular disease, unspecified PLAN: Plan Patient was evaluated at the wound healing center and a debridement was performed as documented. SHAZIA's done at the wound center today, 02/20/22. Right SHAZIA = 1.12, Left SHAZIA = 1.21. Wound care - Moistened Fibricol + topped Adaptic then covered with [place] SAP dressings after washing with soap and water. Wound care today at the wound center will be collagen hydrogel with Adaptic since he did not bring his Fibracol with him. Compression - Place double tubigrip for compression. He did not tolerate the 3M double layer wraps well. Will order Duel layer compression 30-40 mmHg, so he will have appropriate compression and it will easier for him to apply. Ordered arterial studies. Still waiting for him to have them completed. Venous duplex of right leg on 02/08/22 showed Partially compressible femoral vein with echogenic material consistent with chronic deep venous thrombosis. Visualization is difficult so cannot exclude an acute component. Patent and compressible right great saphenous vein. Normal flow patterns left common femoral vein. He has been started on Warfarin per his PCP. Instructed patient to keep leg elevated whenever sitting. He is to avoid standing for long periods of time, but he may walk with no restrictions. He is returning to work this week and does stand quite a bit there. Encouraged him to elevate his leg when he is on break. Encouraged patient it increase his protein intake and increase Vitamin C to 1,000 mg daily for wound healing. Wound culture obtained 03/01/22 which was positive for Staphylococcus saprophyticus, he completed Doxycycline. Follow up 1 week.
[2022-05-01 10:58] VITALS: BP 131/77; PULSE 72; RESP 18; TEMP 36.1
--- NOTE | 2022-05-01 12:38 | PN.PCM_ITS ---
History of Present Illness Date of Service: 05/01/22 Chief Complaint: Non healing right medial leg venous ulcer History of Wound: Patient is a 71 year old male who presents with a right medial leg ulcer that he states started 4-5 weeks ago. He saw his PCP's PA on 02/06/22 and they treated him with Cephalexin and Doxycycline for cellulitis and ordered a venous ultrasound of his right leg to rule out DVT. Patient has not been placing anything on his ulcer. He states he has been off work since seeing the PA. He is supposed to start back to work this week. 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 He states that this ulcer is very painful. Wound care - Collagen hydrogel covered with adaptic and topped with gauze. Today he denies fever, chills, nausea, vomiting. Progress of Wound: Patient has +2-+3 edema. He states he is wearing compression but he is only wearing a single layer Tubigrip. His ulcer bed seems to be less fibrous. The ulcer continues to be very painful. Objective Data Objective Data Vital Signs: Vital Signs Temp Pulse Resp BP O2 Del Method 97 F L 72 18 131/77 H Room Air 05/01/22 10:58 05/01/22 10:58 05/01/22 10:58 05/01/22 10:58 05/01/22 10:58 Oxygen Delivery Method Room Air Charges/Coding Procedures Integumentary 111xxx-113xx: [id number] Deborah subq tissue 20 sq cm/< Debridement Note Debridement Note Wound debrided: medial distal leg ulcer cluster Laterality: Right Type of Debridement: Excisional debridement Anesthesia Used: 5% Lidocaine Gel Depth: Down to and including healthy tissue and in the subcutaneous layer Percentage of wound debrided: 100 Instrument Used: 5mm curette Tissue Removed: Devitalized tissue and slough Severity: Fat Layer Exposed Amount of bleeding with debridement: Mild Bleeding Controlled with: Compression and gauze Patient tolerated procedure: Patient did not tolerate procedure well Debridement Free Text: Debridement is very painful for patient Post-Debridement Measurements and Additional Note: Post-Debridement Measurements/Treatment SHARLA - Nurse 1 - General Ulcer Assessment Start: 04/09/22 07:13 Freq: Status: Active Protocol: LATOYA Activity Type Activity Date Activity User E-sign Co-sign Detail Recorded Client Recorded Date Recorded By Document 04/10/22 14:07 KR [id number] 04/10/22 14:09 KR Document 04/24/22 10:27 DL [id number] 04/24/22 10:32 DL Document 05/01/22 10:58 MT [id number] 05/01/22 11:06 MT 04/10/22 04/24/22 05/01/22 14:07 10:27 10:58 - Today's Visit Information Type of service Follow-up Visit Follow-up Visit Follow-up Visit (Physician/BUSINESS CONTINUITY COORDINATOR (Physician/BUSINESS CONTINUITY COORDINATOR (Physician/BUSINESS CONTINUITY COORDINATOR ) ) ) Arrival Mode Ambulatory Ambulatory Ambulatory Transfer Assistance None Accompanied by self Patient Identification Verified (Name & Yes Yes Yes ) Patient Requires Transmission-Based No Precautions Vital Signs Temperature (97.8 F-99.1 F) 96.2 F L 97 F L 97 F L Temperature Source Temporal Temporal Temporal Pulse Rate (60-100) 68 79 72 Pulse Location Monitor Monitor Monitor Respiratory Rate (12-18) 20 H 18 Respiratory rate source Observation Observation Oxygen Delivery Method Room Air Blood Pressure (90/60-120/80) 145/77 H 153/70 H 131/77 H Blood Pressure Mean (mm Hg) 99 97 95 Source Monitor Monitor Monitor Position Semi-Fowlers Sitting Blood Pressure Location Right Arm Left Arm History Since Last Visit- (Skip if this is Patient's initial visit) Have you changed medications since your No No last visit? Any new allergies or adverse reactions No No Had a fall/change in ADL's that may No No increase risk of falls Signs or symptoms of abuse and/or No No neglect since last visit Have you been in the hospital since your No No last visit? Has dressing in place as prescribed Yes Yes Yes Has compression in place as prescribed No No Yes Has offloadiing in place as prescribed N/A N/A Experienced any changes in pain level or No No management Left Footwear Regular Shoe Regular Shoe Right Footwear Regular Shoe Regular Shoe Pain Scale: 0-10 Numeric Is Patient Pain Free? Yes Yes Yes - Nurse 1 - General Ulcer Measurement Start: 04/09/22 07:13 Freq: Status: Active Protocol: Activity Type Activity Date Activity User E-sign Co-sign Detail Recorded Client Recorded Date Recorded By Document 04/10/22 14:07 KR [id number] 04/10/22 14:09 KR Document 04/24/22 10:27 DL [id number] 04/24/22 10:32 DL Document 05/01/22 10:58 [place] [id number] 05/01/22 11:06 MT 04/10/22 04/24/22 05/01/22 14:07 10:27 10:58 Wound Center Nurse 1 #1 Right Medial LE -Current Size (cm) - Length 0.7 0.7 0.1 -Current Size (cm) - Width 0.6 0.8 0.1 -Current Size (cm) - Depth 0.2 0.1 0.1 -Total Square Cm 0.42 0.56 0.01 -Photo Taken No -Exudate Amt Small Small Small -Exudate Type Serosanguineous Serosanguineous Yellow/Green -Wound Margin Distinct, Distinct, Flat & Intact Outline Outline Attached Attached -Granulation Amt Small (1-33%) Large (67-100%) Medium (34-66%) -Granulation Quality Red Red Pale,Dewey,Red -Necrosis Amt None Present (0 Small (1-33%) Medium (34-66%) %) -Necrotic Tissue Type Adherent Slough Adherent Slough -Structure Exposed N/A -Texture (Dee-wound Skin Appearance) Assessed, Scarring Assessed, Scarring Localized Edema -Moisture (Dee-wound Skin Appearance) No Abnormality, Dry/Scaly Assessed, Assessed Maceration -Color (Dee-wound Skin Appearance) No Abnormality, Hemosiderin Assessed Assessed Staining -Temperature (Dee-wound Skin No Abnormality No Abnormality No Abnormality Appearance) (Pt Warm) (Pt Warm) (Pt Warm) -Tenderness on Palpation (Dee-wound No No No Skin Appearance) -Ulcer Cleansing Rinsed/ Soap and Water Rinsed/ Irrigated with Irrigated with Saline Saline -Foul Odor after Cleansing No No No -Anesthetic Used 5% Lidocaine 5% Lidocaine 4% Lidocaine Gel Gel Solution Right Calf (cm) 44.7 44.5 Right Ankle (cm) 28 29 WC - Nurse 2 - General Ulcer CM Notes Start: 04/09/22 07:13 Freq: Status: Active Protocol: Activity Type Activity Date Activity User E-sign Co-sign Detail Recorded Client Recorded Date Recorded By Document 04/10/22 14:21 [id number] 04/10/22 14:21 Document 04/24/22 10:45 [id number] 04/24/22 10:49 Document 05/01/22 11:45 [id number] 05/01/22 11:48 04/10/22 04/24/22 05/01/22 14:21 10:45 11:45 Wound Center Nurse 2 #1 Right Medial LE -Time 14: 10:45 11:47 -Correct Patient Yes Yes Yes -Correct Side, Site, Position Yes Yes Yes -Correct Procedure Yes Yes Yes -Procedure Performed Yes Yes Yes -Type of Procedure Debridement Debridement Debridement -Clinical Debridement Subcutaneous Subcutaneous Subcutaneous -Tissue Removed Subcutaneous Subcutaneous Subcutaneous -Post Debridement (cm) - Length 0.7 0.7 3.0 -Post Debridement (cm) - Width 0.8 0.7 0.7 -Post Debridement (cm) - Depth 0.1 0.1 0.1 -Total Square (Post) (cm) 0.56 0.49 2.10 -Area of Debridement (cm) - Length 0.7 0.7 3.0 -Area of Debridement (cm) - Width 0.8 0.7 0.7 -Total Square (Area) (cm) 0.56 0.49 2.10 -Tunneling No No No -Undermining/Tunneling No No No -Circular Undermining No No No -Wound/Ulcer Outcome Not Healed Not Healed Not Healed -Ulcer Cleansing Rinsed/ Rinsed/ Rinsed/ Irrigated with Irrigated with Irrigated with Saline Saline Saline -Foul Odor after Cleansing No No No -Bioengineered Tissue No No No -Bleeding Controlled with Pressure Pressure Pressure -Treatment Response Procedure Procedure Procedure Tolerated Well Tolerated Well Tolerated Well -Offloading No No No -Debridement - Subq, 1st 20sq cm Yes Yes Yes Pain Scale: 0-10 Numeric Is Patient Pain Free? Yes Yes Yes WC - Nurse 3 - General Ulcer D/C NN Start: 04/09/22 07:13 Freq: Status: Active Protocol: Activity Type Activity Date Activity User E-sign Co-sign Detail Recorded Client Recorded Date Recorded By Document 04/10/22 14:29 [id number] 04/10/22 14:30 KR Document 04/24/22 11:04 RB [id number] 04/24/22 11:05 RB Document 05/01/22 11:59 MT [id number] 05/01/22 12:00 MT Edit Result 05/01/22 11:59 MT (1) [id number] 05/01/22 12:05 RB (1) Right - Other circaid => pt own stockings 04/10/22 04/24/22 05/01/22 14:29 11:04 11:59 Wound Care Nurse 3 #1 Right Medial LE -Ulcer Cleansing Rinsed/ Rinsed/ Rinsed/ Irrigated with Irrigated with Irrigated with Saline Saline Saline -Primary Dressing Applied C Hydrogel ($) Mepilex Border NonAdherent Contact Layer -Other Dressing hydrogel hydrogel -Primary Dressing Covered/Secured with Dry Gauze, Dry Gauze,Dry Secured with Gauze & Roll Tape Gauze,Secured with Tape -Mepilex Border 1 Right -Tubular Bandage Double Layer Double Layer -Size of Tubigrip Used Size E Size E -Size E ($) 2 2 -Other pt own stockings Left -Tubular Bandage Double Layer -Size of Tubigrip Used Size E -Size E ($) 2 Treatment Response Procedure Procedure Tolerated Well Tolerated Well Pain Scale: 0-10 Numeric Is Patient Pain Free? Yes Yes Yes WC - Visit Discharge Discharge Condition Stable Stable Stable Ambulatory Status Ambulatory Ambulatory Ambulatory Transportation Private Auto Private Auto Private Auto Accompanied by Medication Reconcilliation completed & No No provided to patient/care provider Clinical Summary of Care Provided Yes Yes Assessment/Plan Assessment/Plan (1) Ulcer of right lower extremity with fat layer exposed: CODE(S): L97.912 - Non-pressure chronic ulcer of unspecified part of right lower leg with fat layer exposed (2) Swelling of right lower extremity: CODE(S): M79.89 - Other specified soft tissue disorders (3) Blood clot in vein: CODE(S): I82.90 - Acute embolism and thrombosis of unspecified vein (4) Peripheral vascular disease: CODE(S): I73.9 - Peripheral vascular disease, unspecified PLAN: Plan Patient was evaluated at the wound healing center and a debridement was performed as documented. SHAZIA's done at the wound center on 02/20/22. Right SHAZIA = 1.12, Left SHAZIA = 1.21. Wound care - Collagen hydrogel topped Adaptic then covered with [place] SAP dressings or dry gauze after washing with soap and water. Compression - Place double tubigrip for compression. Applied Duel layer compression today. Instructed patient and his how to apply them. Ordered arterial studies. They are scheduled for 05/08/22. Venous duplex of right leg on 02/08/22 showed Partially compressible femoral vein with echogenic material consistent with chronic deep venous thrombosis. Visualization is difficult so cannot exclude an acute component. Patent and compressible right great saphenous vein. Normal flow patterns left common femoral vein. He has been started on Warfarin per his PCP. Instructed patient to keep leg elevated whenever sitting. He is to avoid standing for long periods of time, but he may walk with no restrictions. He is returning to work this week and does stand quite a bit there. Encouraged him to elevate his leg when he is on break. Encouraged patient it increase his protein intake and increase Vitamin C to 1,000 mg daily for wound healing. Wound culture obtained 03/01/22 which was positive for Staphylococcus saprophyticus, he completed Doxycycline. Follow up 1 week.
== END 2022-05-06 23:59 | disposition home or self-care (01) ==
LOC: WC 10:45
PROVIDERS: PCP Family Medicine; Visit Provider Nurse Practitioner Family
DX: L97.812 Non-pressure chronic ulcer of other part of right lower leg with fat layer exposed (principal); I73.9 Peripheral vascular disease, unspecified; I82.509 Chronic embolism and thrombosis of unspecified deep veins of unspecified lower extremity; M79.89 Other specified soft tissue disorders; Z79.01 Long term (current) use of anticoagulants; Z86.718 Personal history of other venous thrombosis and embolism; Z86.711 Personal history of pulmonary embolism
CPT/HCPCS: 11042; 36415; 85610; 99213; G0463

== ENCOUNTER 2022-05-08 09:07 | Outpatient (RCR) | payer MEDICARE, SELFPAY ==
[2022-05-08 10:50] LABS: International Normalized Ratio 2.1; Prothrombin Time (Protime)PT. 23.2 SECONDS (11.7-14.9)
== END 2022-06-05 23:59 ==
LOC: BIMLAB 09:07
PROVIDERS: PCP Family Medicine; Referring Provider Family Medicine; Visit Provider Family Medicine
DX: Z79.01 Long term (current) use of anticoagulants (principal)
CPT/HCPCS: 36415; 85610

== ENCOUNTER 2022-05-27 14:30 | Outpatient (RCR) | payer MEDICARE, SELFPAY ==
[2022-05-07 00:32] VITALS: BP 131/77; PULSE 72; RESP 18; TEMP 36.1
--- NOTE | 2022-05-08 09:12 | ART_ITS ---
Reason For Study: Wound, PAD Procedure A bilateral lower extremity continuous wave Doppler with analog waveform analysis,segmental pressures,and ankle brachial indexes without exercise. Left Segmental Pressures Left brachial= 138mmHg. Left posterior tibial artery = 171mmHg. Left dorsalis pedis artery = 159mmHg. Left digit = 118 mmHg. The left dorsalis pedis waveforms are triphasic. The left posterior tibial artery waveforms are triphasic. Right Segmental Pressures Right brachial= 134mmHg. Right posterior tibial artery = 172mmHg. Right dorsalis pedis artery = 146mmHg. Right digit = 106 mmHg. The right dorsalis pedis waveforms are triphasic. The right posterior tibial artery waveforms are triphasic. Indices The right ankle brachial index by the dorsalis pedis is 1.06. The right ankle brachial index by the posterior tibial artery is 1.25. The right digital-brachial index is 0.77. The left ankle brachial index by the dorsalis pedis is 1.15. The left ankle brachial index by the posterior tibial artery is 1.24. The left digital-brachial index is 0.86. VL/Lower Ext Art Exam w/o Exercis Interpretation Summary Triphasic Doppler waveforms are noted at ankle level bilaterally. Pulse-volume recordings appear satisfactory at all levels bilaterally. Resting ankle-brachial indices are norm al bilaterally. Digital-brachial indices are normal bilaterally. There is no evidence of significant arterial occlusive disease in the lower ext remities bilaterally. Ordering Physician: Carine Foy Referring Physician: Rob Stephen M.D. Performed By: Viky Joya RVT
--- NOTE | 2022-05-08 09:20 | VDLE_ITS ---
Reason For Study: Bilateral lower extremity edema RIGHT LEFT CFV is compressible, spontaneous, phasic, CFV is compressible, spontaneous, phasic, competent and demonstrates normal competent, and demonstrates normal augmentation. augmentation. FV is compressible, spontaneous, phasic, FV is compressible, spontaneous, phasic, competent and demonstrates normal competent and demonstrates normal augmentation. augmentation. POP V is compressible, spontaneous, phasic, POP V is compressible, spontaneous, phasic, competent and demonstrates normal competent and demonstrates normal augmentation. augmentation. T/P Trunk is compressible. T/P Trunk is compressible. PTV is compressible. PTV is compressible. RT PerV is compressible. LT PerV is compressible. SFJ is competent and measures 1.08 x 1.11 cm. SFJ is INCOMPETENT and measures 0.78 x 0.67 GSV proximal thigh measures 0.66 x 0.68 cm. cm. GSV at knee measures 0.66 x 0.68 cm. GSV proximal thigh measures 0.53 x 0.53 cm. GSV is competent throughout. GSV at knee measures 0.53 x 0.51 cm. ASV proximal calf is INCOMPETENT for greater GSV INCOMPETENT throughout for greater than than 0.5 seconds and measures 0.39 x 0.43 cm. 0.5 seconds. SSV proximal calf is INCOMPETENT for greater SSV proximal calf is competent and measures than 0.5 seconds and measures 0.27 x 0.28 cm. 0.17 x 0.17 cm. Procedure This is a venous duplex using B-mode, color flow and spectral Doppler. Exam performed in department. Patient was scanned in reverse Trendelenburg position during reflux assessment. A preliminary report was called and/or faxed to . VL/Venous Duplex US - Mikhail Extrem Interpretation Summary Deep veins of the lower extremities are bilaterally patent and compressible seg mentally. There is no evidence of deep vein thrombosis on either side. Valvular competence appears in tact within the proximal deep venous systems bilaterally. The great saphenous veins appear bila terally patent and compressible segmentally. The right sapheno-femoral junction is competent . The left sapheno-femoral junction is incompetent . The right great saphenous vein appears segmentally co mpetent. The left great saphenous vein appears segmentally incompetent. The right small saphenous vein is patent and incompetent. The left small saphenous vein is patent and competent. An incompet ent accessory saphenous vein is noted in the right proximal calf. Ordering Physician: Carine Foy Referring Physician: Rob Stephen M.D. Performed By: Viky Joya RVT
[2022-05-08 11:05] VITALS: BP 136/77; PULSE 68; RESP 20; TEMP 36.6
--- NOTE | 2022-05-08 13:49 | PN.PCM_ITS ---
History of Present Illness Date of Service: 05/08/22 Chief Complaint: Non healing right medial leg venous ulcer History of Wound: Patient is a 71 year old male who presents with a right medial leg ulcer that he states started 4-5 weeks ago. He saw his PCP's PA on 02/06/22 and they treated him with Cephalexin and Doxycycline for cellulitis and ordered a venous ultrasound of his right leg to rule out DVT. Patient has not been placing anything on his ulcer. He states he has been off work since seeing the PA. He is supposed to start back to work this week. 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 He states that this ulcer is very painful. Wound care - Collagen hydrogel covered with adaptic and topped with gauze. Arterial studies completed on 05/08/22. Right SHAZIA - 1.06, right digital brachial index is 0.77. Left SHAZIA - 1.15, Left digital-brachial index is 0.86. Bilateral Triphasic waveforms. No evidence of significant arterial occlusive disease bilaterally. Venous duplex ultrasound done 05/08/22. Deep veins of the lower extremities are bilaterally patent and compressible segmentally. There is no evidence of deep vein thrombosis on either side. Valvular competence appears intact within the proximal deep venous systems bilaterally. The left sapheno-femoral junction is incompetent . The left great saphenous vein appears segmentally incompetent. The right small saphenous vein is patent and incompetent. An incompetent accessory saphenous vein is noted in the right proximal calf. Today he denies fever, chills, nausea, vomiting. Progress of Wound: Right medial distal leg ulcer cluster is larger today. His swelling continues to be +3 edema. He states he stopped wearing his duel layer compression stockings because they were too tight and too hard to get on. They made his ulcer hurt worse. He has been wearing single layer tubigrip because double layer makes his ulcer more painful. Objective Data Objective Data Vital Signs: Vital Signs Temp Pulse Resp BP 97.8 F 68 20 H 136/77 H 05/08/22 11:05 05/08/22 11:05 05/08/22 11:05 05/08/22 11:05 Weight: 230 lb 1.011 oz Charges/Coding Procedures Integumentary 111xxx-113xx: 29466 Deborah subq tissue 20 sq cm/< Debridement Note Debridement Note Wound debrided: medial distal leg ulcer cluster Laterality: Right Type of Debridement: Excisional debridement Anesthesia Used: 5% Lidocaine Gel Depth: Down to and including healthy tissue and in the subcutaneous layer Percentage of wound debrided: 100 Instrument Used: 5mm curette Tissue Removed: Devitalized tissue and slough Severity: Fat Layer Exposed Amount of bleeding with debridement: Mild Bleeding Controlled with: Compression and gauze Patient tolerated procedure: Patient did not tolerate procedure well Debridement Free Text: Debridement is very painful for patient Post-Debridement Measurements and Additional Note: Post-Debridement Measurements/Treatment WC - Nurse 1 - General Ulcer Assessment Start: 05/08/22 11:01 Freq: Status: Active Protocol: LATOYA Activity Type Activity Date Activity User E-sign Co-sign Detail Recorded Client Recorded Date Recorded By Document 05/08/22 11:05 CLIFF [id number] 05/08/22 11:11 DL 05/08/22 11:05 WC - Today's Visit Information Type of service Follow-up Visit (Physician/HOSPITAL INTERNSH[facility] ) Arrival Mode Ambulatory Transfer Assistance None Patient Identification Verified (Name & Yes ) Patient Requires Transmission-Based No Precautions Height and Weight Weight 230 lb 1.011 oz Weight in Pounds 230.1 lbs Weight Measurement Method Estimated by Patient Vital Signs Temperature (97.8 F-99.1 F) 97.8 F Temperature Source Temporal Pulse Rate (60-100) 68 Pulse Location Monitor Respiratory Rate (12-18) 20 H Respiratory rate source Observation Blood Pressure (90/60-120/80) 136/77 H Blood Pressure Mean (mm Hg) 96 Source Monitor History Since Last Visit- (Skip if this is Patient's initial visit) Have you changed medications since your No last visit? Any new allergies or adverse reactions No Had a fall/change in ADL's that may No increase risk of falls Signs or symptoms of abuse and/or No neglect since last visit Have you been in the hospital since your No last visit? Has dressing in place as prescribed Yes Has compression in place as prescribed No Has offloadiing in place as prescribed N/A Experienced any changes in pain level or No management Pain Scale: 0-10 Numeric Is Patient Pain Free? Yes SHARLA - Nurse 1 - General Ulcer Measurement Start: 05/08/22 11:01 Freq: Status: Active Protocol: Activity Type Activity Date Activity User E-sign Co-sign Detail Recorded Client Recorded Date Recorded By Document 05/08/22 11:05 DL [id number] 05/08/22 11:11 DL 05/08/22 11:05 Wound Center Nurse 1 #1 Right Medial LE -Current Size (cm) - Length 4.3 -Current Size (cm) - Width 2.8 -Current Size (cm) - Depth 1 -Total Square Cm 12.04 -Photo Taken Yes -Exudate Amt Medium -Exudate Type Serosanguineous -Wound Margin Distinct, Outline Attached -Granulation Amt Large (67-100%) -Granulation Quality Red -Necrosis Amt Small (1-33%) -Necrotic Tissue Type Adherent Slough -Structure Exposed N/A -Texture (Dee-wound Skin Appearance) Localized Edema ,Scarring -Moisture (Dee-wound Skin Appearance) No Abnormality -Color (Dee-wound Skin Appearance) Hemosiderin Staining -Temperature (Dee-wound Skin No Abnormality Appearance) (Pt Warm) -Tenderness on Palpation (Dee-wound No Skin Appearance) -Ulcer Cleansing Rinsed/ Irrigated with Saline -Foul Odor after Cleansing No -Anesthetic Used 5% Lidocaine Gel Right Calf (cm) 44 Right Ankle (cm) 27.4 WC - Nurse 2 - General Ulcer CM Notes Start: 05/08/22 11:01 Freq: Status: Active Protocol: Activity Type Activity Date Activity User E-sign Co-sign Detail Recorded Client Recorded Date Recorded By Document 05/08/22 11:47 LINNETTE [id number] 05/08/22 11:49 LINNETTE 05/08/22 11:47 Wound Center Nurse 2 #1 Right Medial LE -Time 11:48 -Correct Patient Yes -Correct Side, Site, Position Yes -Correct Procedure Yes -Procedure Performed Yes -Type of Procedure Debridement -Clinical Debridement Subcutaneous -Tissue Removed Subcutaneous -Post Debridement (cm) - Length 6.0 -Post Debridement (cm) - Width 2.8 -Post Debridement (cm) - Depth 0.1 -Total Square (Post) (cm) 16.80 -Area of Debridement (cm) - Length 6.0 -Area of Debridement (cm) - Width 2.8 -Total Square (Area) (cm) 16.80 -Tunneling No -Undermining/Tunneling No -Circular Undermining No -Wound/Ulcer Outcome Not Healed -Ulcer Cleansing Rinsed/ Irrigated with Saline -Foul Odor after Cleansing No -Bioengineered Tissue No -Bleeding Controlled with Pressure -Treatment Response Procedure Tolerated Well -Offloading No -Debridement - Subq, 1st 20sq cm Yes Pain Scale: 0-10 Numeric Is Patient Pain Free? Yes - Nurse 3 - General Ulcer D/C NN Start: 05/08/22 11:01 Freq: Status: Active Protocol: Activity Type Activity Date Activity User E-sign Co-sign Detail Recorded Client Recorded Date Recorded By Document 05/08/22 12:00 [facility] [id number] 05/08/22 12:01 [facility] 05/08/22 12:00 Wound Care Nurse 3 #1 Right Medial LE -Ulcer Cleansing Rinsed/ Irrigated with Saline -Foul Odor after Cleansing No -Primary Dressing Applied Fibracol Plus 4x4,NonAdherent Contact Layer -Primary Dressing Covered/Secured with Dry Gauze & Roll Gauze, Secured with Tape -Fibracol Plus 4x4 1 Right -Compression Wrap Vijay Wrap -Tubular Bandage Single Layer -Size of Tubigrip Used Size E -Size E ($) 1 Treatment Response Procedure Tolerated Well Pain Scale: 0-10 Numeric Is Patient Pain Free? Yes WC - Visit Discharge Discharge Condition Stable Ambulatory Status Ambulatory Transportation Private Auto Accompanied by Assessment/Plan Assessment/Plan (1) Ulcer of right lower extremity with fat layer exposed: CODE(S): L97.912 - Non-pressure chronic ulcer of unspecified part of right lower leg with fat layer exposed (2) Swelling of right lower extremity: CODE(S): M79.89 - Other specified soft tissue disorders (3) Blood clot in vein: CODE(S): I82.90 - Acute embolism and thrombosis of unspecified vein (4) Peripheral vascular disease: CODE(S): I73.9 - Peripheral vascular disease, unspecified PLAN: Plan Patient was evaluated at the wound healing center and a debridement was performed as documented. Wound care - Restart Fibrocol + moistened topped Adaptic then covered with [place] SAP dressings or dry gauze after washing with soap and water daily. Compression - Applied Duel layer compression last week. Patient states they are too tight and refuses to wear them. Will apply single layer tubigrip with an VIJAY wrap on top of it to try help decrease his edema. Had an extensive conversation with the patient and his about the importance of wearing compression, decreasing the swelling to help improve healing. SHAZIA's done at the wound center on 02/20/22. Right SHAZIA = 1.12, Left SHAZIA = 1.21. Venous duplex of right leg on 02/08/22 showed Partially compressible femoral vein with echogenic material consistent with chronic deep venous thrombosis. Visualization is difficult so cannot exclude an acute component. Patent and compressible right great saphenous vein. Normal flow patterns left common femoral vein. He has been started on Warfarin per his PCP. Arterial and Venous studies done today, 05/08/22. The details are under HPI. No arterial compromise. Will refer to Dr. Ravi due to the venous studies, the non healing ulcer, the amount of edema the patient is experiencing and how painful this ulcer is. Instructed patient to keep leg elevated whenever sitting. He is to avoid standing for long periods of time, but he may walk with no restrictions. He is returning to work this week and does stand quite a bit there. Encouraged him to elevate his leg when he is on break. Encouraged patient it increase his protein intake and increase Vitamin C to 1,000 mg daily for wound healing. Wound culture obtained today, 05/08/22, due to the increase in the overall size of the ulcer cluster and his pain. Depending on the results of the culture, it may necessitate the need for treatment of antibiotics. Wound culture obtained 03/01/22 which was positive for Staphylococcus saprophyticus, he completed Doxycycline. Follow up 2 weeks, per patient request.
[2022-05-22 11:19] VITALS: BP 137/76; PULSE 73; RESP 18; TEMP 36.3
--- NOTE | 2022-05-22 11:57 | PCM.WC.PN ---
History of Present Illness Date of Service: 05/22/22 Chief Complaint: Non healing right medial leg venous ulcer History of Wound: Patient is a 71 year old male who presents with a right medial leg ulcer that he states started 4-5 weeks ago. He saw his PCP's PA on 02/06/22 and they treated him with Cephalexin and Doxycycline for cellulitis and ordered a venous ultrasound of his right leg to rule out DVT. Patient has not been placing anything on his ulcer. He states he has been off work since seeing the PA. He is supposed to start back to work this week. 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 He states that this ulcer is very painful. Wound care - Collagen hydrogel covered with adaptic and topped with gauze. Arterial studies completed on 05/08/22. Right SHAZIA - 1.06, right digital brachial index is 0.77. Left SHAZIA - 1.15, Left digital-brachial index is 0.86. Bilateral Triphasic waveforms. No evidence of significant arterial occlusive disease bilaterally. Venous duplex ultrasound done 05/08/22. Deep veins of the lower extremities are bilaterally patent and compressible segmentally. There is no evidence of deep vein thrombosis on either side. Valvular competence appears intact within the proximal deep venous systems bilaterally. The left sapheno-femoral junction is incompetent . The left great saphenous vein appears segmentally incompetent. The right small saphenous vein is patent and incompetent. An incompetent accessory saphenous vein is noted in the right proximal calf. Today he denies fever, chills, nausea, vomiting. Progress of Wound: Right medial distal leg ulcer cluster is stable. His swelling continues to be +3 edema. He states he states he wears his single layer compression stockings although they make his ulcer hurt worse. He states that the Fibricol + is painful next to his skin and he would rather just use the adaptic. He states he is having a moderate amount of drainage. Objective Data Objective Data Vital Signs: Vital Signs Temp Pulse Resp BP 97.4 F L 73 18 137/76 H 05/22/22 11:19 05/22/22 11:19 05/22/22 11:19 05/22/22 11:19 Weight: 230 lb 1.011 oz Lab / Micro Data Micro: Microbiology 05/08/22 11:44 Wound Abcess - Leg, Right Gram Stain - Final 05/08/22 11:44 Wound Abcess - Leg, Right Wound Culture - Final Staphylococcus epidermidis Staphylococcus lugdunensis Corynebacterium amycolatum 05/08/22 11:44 Wound Abcess - Leg, Right Anaerobic Culture - Final No anaerobic bacteria isolated. Charges/Coding Procedures Integumentary 111xxx-113xx: 24946 Deborah subq tissue 20 sq cm/< Debridement Note Debridement Note Wound debrided: medial distal leg ulcer cluster Laterality: Right Wound Grade/Stage: Stage II Type of Debridement: Excisional debridement Anesthesia Used: 5% Lidocaine Gel Depth: Down to and including healthy tissue and in the subcutaneous layer Percentage of wound debrided: 100 Instrument Used: 5mm curette Tissue Removed: Devitalized tissue and slough Severity: Fat Layer Exposed Amount of bleeding with debridement: Mild Bleeding Controlled with: Compression and gauze Patient tolerated procedure: Patient did not tolerate procedure well Debridement Free Text: Debridement is very painful for patient Post-Debridement Measurements and Additional Note: Post-Debridement Measurements/Treatment - Nurse 1 - General Ulcer Assessment Start: 05/08/22 11:01 Freq: Status: Active Protocol: LATOYA Activity Type Activity Date Activity User E-sign Co-sign Detail Recorded Client Recorded Date Recorded By Document 05/08/22 11:05 DL [id number] 05/08/22 11:11 DL Document 05/22/22 11:19 RB [id number] 05/22/22 11:21 RB 05/08/22 05/22/22 11:05 11:19 - Today's Visit Information Type of service Follow-up Visit Follow-up Visit (Physician/CHEMICAL DEPENDENCY THERAPIST (Physician/CHEMICAL DEPENDENCY THERAPIST ) ) Arrival Mode Ambulatory Ambulatory Transfer Assistance None None Patient Identification Verified (Name & Yes Yes ) Patient Requires Transmission-Based No No Precautions Height and Weight Weight 230 lb 1.011 oz Weight in Pounds 230.1 lbs Weight Measurement Method Estimated by Patient Vital Signs Temperature (97.8 F-99.1 F) 97.8 F 97.4 F L Temperature Source Temporal Temporal Pulse Rate (60-100) 68 73 Pulse Location Monitor Monitor Respiratory Rate (12-18) 20 H 18 Respiratory rate source Observation Observation Blood Pressure (90/60-120/80) 136/77 H 137/76 H Blood Pressure Mean (mm Hg) 96 96 Source Monitor Monitor Position Sitting Blood Pressure Location Left Arm History Since Last Visit- (Skip if this is Patient's initial visit) Have you changed medications since your No No last visit? Any new allergies or adverse reactions No No Had a fall/change in ADL's that may No No increase risk of falls Signs or symptoms of abuse and/or No No neglect since last visit Have you been in the hospital since your No No last visit? Has dressing in place as prescribed Yes Yes Has compression in place as prescribed No No Has offloadiing in place as prescribed N/A No Experienced any changes in pain level or No No management Pain Scale: 0-10 Numeric Is Patient Pain Free? Yes Yes WC - Nurse 1 - General Ulcer Measurement Start: 05/08/22 11:01 Freq: Status: Active Protocol: Activity Type Activity Date Activity User E-sign Co-sign Detail Recorded Client Recorded Date Recorded By Document 05/08/22 11:05 DL [id number] 05/08/22 11:11 DL Document 05/22/22 11:19 RB [id number] 05/22/22 11:21 RB 05/08/22 05/22/22 11:05 11:19 Wound Center Nurse 1 #1 Right Medial LE -Combined with other wound No -Current Size (cm) - Length 4.3 3.2 -Current Size (cm) - Width 2.8 2 -Current Size (cm) - Depth 1 0.1 -Total Square Cm 12.04 6.4 -Photo Taken Yes Yes -Tunneling No -Undermining/Tunneling No -Circular Undermining No -Exudate Amt Medium Medium -Exudate Type Serosanguineous Serosanguineous -Wound Margin Distinct, Fibrotic Scar, Outline Thickened Scar Attached -Granulation Amt Large (67-100%) Medium (34-66%) -Granulation Quality Red Red -Slough/Fibrin Yes -Necrosis Amt Small (1-33%) Medium (34-66%) -Necrotic Tissue Type Adherent Slough Adherent Slough -Structure Exposed N/A N/A -Texture (Dee-wound Skin Appearance) Localized Edema Assessed ,Scarring -Moisture (Dee-wound Skin Appearance) No Abnormality Assessed -Color (Dee-wound Skin Appearance) Hemosiderin Assessed, Staining Hemosiderin Staining -Temperature (Dee-wound Skin No Abnormality No Abnormality Appearance) (Pt Warm) (Pt Warm) -Tenderness on Palpation (Dee-wound No No Skin Appearance) -Ulcer Cleansing Rinsed/ Wound Cleanser Irrigated with Saline -Foul Odor after Cleansing No No -Anesthetic Used 5% Lidocaine 5% Lidocaine Gel Gel Lower Limb Edema Present Yes Right Calf (cm) 44 44.5 Right Ankle (cm) 27.4 29 - Nurse 2 - General Ulcer CM Notes Start: 05/08/22 11:01 Freq: Status: Active Protocol: Activity Type Activity Date Activity User E-sign Co-sign Detail Recorded Client Recorded Date Recorded By Document 05/08/22 11:47 [id number] 05/08/22 11:49 Document 05/22/22 11:32 [id number] 05/22/22 11:37 05/08/22 05/22/22 11:47 11:32 Wound Center Nurse 2 #1 Right Medial LE -Time 11:48 11:33 -Correct Patient Yes Yes -Correct Side, Site, Position Yes Yes -Correct Procedure Yes Yes -Procedure Performed Yes Yes -Type of Procedure Debridement Debridement -Clinical Debridement Subcutaneous Subcutaneous -Tissue Removed Subcutaneous Subcutaneous -Post Debridement (cm) - Length 6.0 3.3 -Post Debridement (cm) - Width 2.8 0.3 -Post Debridement (cm) - Depth 0.1 0.1 -Total Square (Post) (cm) 16.80 0.99 -Area of Debridement (cm) - Length 6.0 3.3 -Area of Debridement (cm) - Width 2.8 3.3 -Total Square (Area) (cm) 16.80 10.89 -Tunneling No No -Undermining/Tunneling No No -Circular Undermining No No -Wound/Ulcer Outcome Not Healed Not Healed -Ulcer Cleansing Rinsed/ Rinsed/ Irrigated with Irrigated with Saline Saline -Foul Odor after Cleansing No No -Bioengineered Tissue No No -Bleeding Controlled with Pressure Pressure -Treatment Response Procedure Procedure Tolerated Well Tolerated Well -Offloading No No -Debridement - Subq, 1st 20sq cm Yes Yes Pain Scale: 0-10 Numeric Is Patient Pain Free? Yes Yes - Nurse 3 - General Ulcer D/C NN Start: 05/08/22 11:01 Freq: Status: Active Protocol: Activity Type Activity Date Activity User E-sign Co-sign Detail Recorded Client Recorded Date Recorded By Document 05/08/22 12:00 [facility] [id number] 05/08/22 12:01 [facility] 05/08/22 12:00 Wound Care Nurse 3 #1 Right Medial LE -Ulcer Cleansing Rinsed/ Irrigated with Saline -Foul Odor after Cleansing No -Primary Dressing Applied Fibracol Plus 4x4,NonAdherent Contact Layer -Primary Dressing Covered/Secured with Dry Gauze & Roll Gauze, Secured with Tape -Fibracol Plus 4x4 1 Right -Compression Wrap Vijay Wrap -Tubular Bandage Single Layer -Size of Tubigrip Used Size E -Size E ($) 1 Treatment Response Procedure Tolerated Well Pain Scale: 0-10 Numeric Is Patient Pain Free? Yes WC - Visit Discharge Discharge Condition Stable Ambulatory Status Ambulatory Transportation Private Auto Accompanied by Assessment/Plan Assessment/Plan (1) Ulcer of right lower extremity with fat layer exposed: CODE(S): L97.912 - Non-pressure chronic ulcer of unspecified part of right lower leg with fat layer exposed (2) Swelling of right lower extremity: CODE(S): M79.89 - Other specified soft tissue disorders (3) Blood clot in vein: CODE(S): I82.90 - Acute embolism and thrombosis of unspecified vein (4) Peripheral vascular disease: CODE(S): I73.9 - Peripheral vascular disease, unspecified PLAN: Plan Patient was evaluated at the wound healing center and a debridement was performed as documented. Wound care - Place adaptic next to ulcer then place moistened Fibrocol + and cover with [place] SAP dressings or dry gauze after washing with soap and water daily. Will see if placing the adpatic next to the ulcer will help improve his discomfort. Compression - Will apply single layer tubigrip with an VIJAY wrap on top of it to try help decrease his edema. Had another extensive conversation with the patient about the importance of wearing compression, decreasing the swelling to help improve healing. SHAZIA's done at the wound center on 02/20/22. Right SHAZIA = 1.12, Left SHAZIA = 1.21. Venous duplex of right leg on 02/08/22 showed Partially compressible femoral vein with echogenic material consistent with chronic deep venous thrombosis. Visualization is difficult so cannot exclude an acute component. Patent and compressible right great saphenous vein. Normal flow patterns left common femoral vein. He has been started on Warfarin per his PCP. Arterial and venous studies done 05/08/22. The details are under HPI. No arterial compromise. Referred to Dr. Ravi for further evaluation due to the venous studies, the non healing ulcer, the amount of edema the patient is experiencing and how painful this ulcer is. The patient states he has not made the appointment. Instructed patient to keep leg elevated whenever sitting. He is to avoid standing for long periods of time, but he may walk with no restrictions. He is returning to work this week and does stand quite a bit there. Encouraged him to elevate his leg when he is on break. Encouraged patient it increase his protein intake and increase Vitamin C to 1,000 mg daily for wound healing. Wound culture obtained today, 05/08/22, due to the increase in the overall size of the ulcer cluster and his pain. Depending on the results of the culture, it may necessitate the need for treatment of antibiotics. Wound culture obtained 03/01/22 which was positive for Staphylococcus saprophyticus, he completed Doxycycline. Follow up 2 weeks, per patient request.
[2022-05-27 14:32] VITALS: BP 156/74; PULSE 85; RESP 16; TEMP 36.3
--- NOTE | 2022-05-27 15:56 | PN.PCM_ITS ---
History of Present Illness Date of Service: 05/27/22 Chief Complaint: Non healing right medial leg venous ulcer History of Wound: Patient is a 71 year old male who presents with a right medial leg ulcer that he states started 4-5 weeks ago. He saw his PCP's PA on 02/06/22 and they treated him with Cephalexin and Doxycycline for cellulitis and ordered a venous ultrasound of his right leg to rule out DVT. Patient has not been placing anything on his ulcer. He states he has been off work since seeing the PA. He is supposed to start back to work this week. 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 He states that this ulcer is very painful. Wound care -Adaptic covered with moistened Fibacol + and topped with gauze/ABD for his moderate amount of drainage. Arterial studies completed on 05/08/22. Right SHAZIA - 1.06, right digital brachial index is 0.77. Left SHAZIA - 1.15, Left digital-brachial index is 0.86. Bilateral Triphasic waveforms. No evidence of significant arterial occlusive disease bilaterally. Venous duplex ultrasound done 05/08/22. Deep veins of the lower extremities are bilaterally patent and compressible segmentally. There is no evidence of deep vein thrombosis on either side. Valvular competence appears intact within the proximal deep venous systems bilaterally. The left sapheno- femoral junction is incompetent . The left great saphenous vein appears segmentally incompetent. The right small saphenous vein is patent and incompetent. An incompetent accessory saphenous vein is noted in the right proximal calf. Today he denies fever, chills, nausea, vomiting. Progress of Wound: Right medial distal leg ulcer cluster is smaller. It continues to be very painful. His swelling continues to be +3 edema. He states he states he wears his single layer compression stockings although they make his ulcer hurt worse. He states he is having a moderate amount of drainage. Objective Data Objective Data Vital Signs: Vital Signs Temp Pulse Resp BP O2 Del Method 97.3 F L 85 16 156/74 H Room Air 05/27/22 14:32 05/27/22 14:32 05/27/22 14:32 05/27/22 14:32 05/27/22 14:32 Oxygen Delivery Method Room Air Weight: 230 lb 1.011 oz Lab / Micro Data Micro: Microbiology 05/08/22 11:44 Wound Abcess - Leg, Right Gram Stain - Final 05/08/22 11:44 Wound Abcess - Leg, Right Wound Culture - Final Staphylococcus epidermidis Staphylococcus lugdunensis Corynebacterium amycolatum 05/08/22 11:44 Wound Abcess - Leg, Right Anaerobic Culture - Final No anaerobic bacteria isolated. Charges/Coding Procedures Integumentary 111xxx-113xx: [id number] Deborah subq tissue 20 sq cm/< Debridement Note Debridement Note Wound debrided: medial distal leg ulcer cluster Laterality: Right Wound Grade/Stage: Stage II Type of Debridement: Excisional debridement Anesthesia Used: 5% Lidocaine Gel Depth: Down to and including healthy tissue and in the subcutaneous layer Percentage of wound debrided: 100 Instrument Used: 5mm curette Tissue Removed: Devitalized tissue and slough Severity: Fat Layer Exposed Amount of bleeding with debridement: Mild Bleeding Controlled with: Compression and gauze Patient tolerated procedure: Patient did not tolerate procedure well Debridement Free Text: Debridement is very painful for patient Post-Debridement Measurements and Additional Note: Post-Debridement Measurements/Treatment - Nurse 1 - General Ulcer Assessment Start: 05/08/22 11:01 Freq: Status: Active Protocol: LATOYA Activity Type Activity Date Activity User E-sign Co-sign Detail Recorded Client Recorded Date Recorded By Document 05/08/22 11:05 DL [id number] 05/08/22 11:11 DL Document 05/22/22 11:19 RB [id number] 05/22/22 11:21 RB Document 05/27/22 14:32 [facility] [id number] 05/27/22 14:37 [facility] 05/08/22 05/22/22 05/27/22 11:05 11:19 14:32 - Today's Visit Information Type of service Follow-up Visit Follow-up Visit Follow-up Visit (Physician/HEAD OF [employer] (Physician/HEAD OF [employer]AMA (Physician/HEAD OF [employer]AMA ) ) ) Arrival Mode Ambulatory Ambulatory Ambulatory Transfer Assistance None None None Accompanied by Patient Identification Verified (Name & Yes Yes Yes ) Patient Requires Transmission-Based No No No Precautions Height and Weight Weight 230 lb 1.011 oz Weight in Pounds 230.1 lbs Weight Measurement Method Estimated by Patient Vital Signs Temperature (97.8 F-99.1 F) 97.8 F 97.4 F L 97.3 F L Temperature Source Temporal Temporal Temporal Pulse Rate (60-100) 68 73 85 Pulse Location Monitor Monitor Monitor Respiratory Rate (12-18) 20 H 18 16 Respiratory rate source Observation Observation Observation Oxygen Delivery Method Room Air Blood Pressure (90/60-120/80) 136/77 H 137/76 H 156/74 H Blood Pressure Mean (mm Hg) 96 96 101 Source Monitor Monitor Monitor Position Sitting Sitting Blood Pressure Location Left Arm Right Arm History Since Last Visit- (Skip if this is Patient's initial visit) Have you changed medications since your No No No last visit? Any new allergies or adverse reactions No No No Had a fall/change in ADL's that may No No No increase risk of falls Signs or symptoms of abuse and/or No No No neglect since last visit Have you been in the hospital since your No No No last visit? Has dressing in place as prescribed Yes Yes Yes Has compression in place as prescribed No No Yes Has offloadiing in place as prescribed N/A No N/A Experienced any changes in pain level or No No No management Left Footwear Regular Shoe Right Footwear Regular Shoe Pain Scale: 0-10 Numeric Is Patient Pain Free? Yes Yes Yes WC - Nurse 1 - General Ulcer Measurement Start: 05/08/22 11:01 Freq: Status: Active Protocol: Activity Type Activity Date Activity User E-sign Co-sign Detail Recorded Client Recorded Date Recorded By Document 05/08/22 11:05 DL [id number] 05/08/22 11:11 DL Document 05/22/22 11:19 RB [id number] 05/22/22 11:21 RB Document 05/27/22 14:32 [facility] [id number] 05/27/22 14:37 BMF 05/08/22 05/22/22 05/27/22 11:05 11:19 14:32 Wound Center Nurse 1 #1 Right Medial LE -Combined with other wound No No -Current Size (cm) - Length 4.3 3.2 2 -Current Size (cm) - Width 2.8 2 1.5 -Current Size (cm) - Depth 1 0.1 0.1 -Total Square Cm 12.04 6.4 3.0 -Date of Last Picture (Recall this 05/27/22 field) -Photo Taken Yes Yes Yes -Epithelialization Small 1-33% -Tunneling No No -Undermining/Tunneling No No -Circular Undermining No No -Exudate Amt Medium Medium Medium -Exudate Type Serosanguineous Serosanguineous Serosanguineous -Wound Margin Distinct, Fibrotic Scar, Distinct, Outline Thickened Scar Outline Attached Attached -Granulation Amt Large (67-100%) Medium (34-66%) Large (67-100%) -Granulation Quality Red Red Red -Slough/Fibrin Yes Yes -Necrosis Amt Small (1-33%) Medium (34-66%) Small (1-33%) -Necrotic Tissue Type Adherent Slough Adherent Slough Adherent Slough -Structure Exposed N/A N/A -Texture (Dee-wound Skin Appearance) Localized Edema Assessed Assessed, ,Scarring Scarring -Moisture (Dee-wound Skin Appearance) No Abnormality Assessed Assessed,Dry/ Scaly -Color (Dee-wound Skin Appearance) Hemosiderin Assessed, Assessed, Staining Hemosiderin Hemosiderin Staining Staining -Temperature (Dee-wound Skin No Abnormality No Abnormality No Abnormality Appearance) (Pt Warm) (Pt Warm) (Pt Warm) -Tenderness on Palpation (Dee-wound No No Yes Skin Appearance) -Ulcer Cleansing Rinsed/ Wound Cleanser Rinsed/ Irrigated with Irrigated with Saline Saline -Foul Odor after Cleansing No No No -Anesthetic Used 5% Lidocaine 5% Lidocaine 5% Lidocaine Gel Gel Gel -Wound Comment(s) PETECHIAL RASH TO RLE Lower Limb Edema Present Yes Yes Right Calf (cm) 44 44.5 44 Right Ankle (cm) 27.4 29 28.5 WC - Nurse 2 - General Ulcer CM Notes Start: 05/08/22 11:01 Freq: Status: Active Protocol: Activity Type Activity Date Activity User E-sign Co-sign Detail Recorded Client Recorded Date Recorded By Document 05/08/22 11:47 LINNETTE [id number] 05/08/22 11:49 Document 05/22/22 11:32 LINNETTE [id number] 05/22/22 11:37 Document 05/27/22 14:58 LNINETTE [id number] 05/27/22 15:02 05/08/22 05/22/22 05/27/22 11:47 11:32 14:58 Wound Center Nurse 2 #1 Right Medial LE -Time 11:48 11:33 15:01 -Correct Patient Yes Yes Yes -Correct Side, Site, Position Yes Yes Yes -Correct Procedure Yes Yes Yes -Procedure Performed Yes Yes Yes -Type of Procedure Debridement Debridement Debridement -Clinical Debridement Subcutaneous Subcutaneous Subcutaneous -Tissue Removed Subcutaneous Subcutaneous Subcutaneous -Post Debridement (cm) - Length 6.0 3.3 2.0 -Post Debridement (cm) - Width 2.8 0.3 3.0 -Post Debridement (cm) - Depth 0.1 0.1 0.1 -Total Square (Post) (cm) 16.80 0.99 6.00 -Area of Debridement (cm) - Length 6.0 3.3 2 -Area of Debridement (cm) - Width 2.8 3.3 3 -Total Square (Area) (cm) 16.80 10.89 6 -Tunneling No No No -Undermining/Tunneling No No No -Circular Undermining No No No -Wound/Ulcer Outcome Not Healed Not Healed Not Healed -Ulcer Cleansing Rinsed/ Rinsed/ Rinsed/ Irrigated with Irrigated with Irrigated with Saline Saline Saline -Foul Odor after Cleansing No No No -Bioengineered Tissue No No No -Bleeding Controlled with Pressure Pressure Pressure -Treatment Response Procedure Procedure Procedure Tolerated Well Tolerated Well Tolerated Well -Offloading No No No -Debridement - Subq, 1st 20sq cm Yes Yes Yes Pain Scale: 0-10 Numeric Is Patient Pain Free? Yes Yes Yes WC - Nurse 3 - General Ulcer D/C NN Start: 05/08/22 11:01 Freq: Status: Active Protocol: Activity Type Activity Date Activity User E-sign Co-sign Detail Recorded Client Recorded Date Recorded By Document 05/08/22 12:00 [facility] [id number] 05/08/22 12:01 BM Document 05/22/22 11:46 DL [id number] 05/22/22 12:02 DL Document 05/27/22 15:10 [facility] [id number] 05/27/22 15:11 [facility] 05/08/22 05/22/22 05/27/22 12:00 11:46 15:10 Wound Care Nurse 3 #1 Right Medial LE -Ulcer Cleansing Rinsed/ Rinsed/ Rinsed/ Irrigated with Irrigated with Irrigated with Saline Saline Saline -Foul Odor after Cleansing No No No -Primary Dressing Applied Fibracol Plus Fibracol Plus NonAdherent 4x4,NonAdherent 4x4,NonAdherent Contact Layer Contact Layer Contact Layer -Other Dressing HYDROGEL -Primary Dressing Covered/Secured with Dry Gauze & Dry Gauze & Dry Gauze & Roll Gauze, Roll Gauze, Roll Gauze, Secured with Secured with Secured with Tape Tape Tape -Fibracol Plus 4x4 1 1 Right -Compression Wrap Vijay Wrap Vijay Wrap -Tubular Bandage Single Layer Single Layer Single Layer -Size of Tubigrip Used Size E Size E Size D -Size D ($) 1 -Size E ($) 1 1 Treatment Response Procedure Procedure Procedure Tolerated Well Tolerated Well Tolerated Well Pain Scale: 0-10 Numeric Is Patient Pain Free? Yes Yes Yes WC - Visit Discharge Discharge Condition Stable Stable Stable Ambulatory Status Ambulatory Ambulatory Ambulatory Transportation Private Auto Private Auto Private Auto Accompanied by Assessment/Plan Assessment/Plan (1) Ulcer of right lower extremity with fat layer exposed: CODE(S): L97.912 - Non-pressure chronic ulcer of unspecified part of right lower leg with fat layer exposed (2) Swelling of right lower extremity: CODE(S): M79.89 - Other specified soft tissue disorders (3) Blood clot in vein: CODE(S): I82.90 - Acute embolism and thrombosis of unspecified vein (4) Peripheral vascular disease: CODE(S): I73.9 - Peripheral vascular disease, unspecified PLAN: Plan Patient was evaluated at the wound healing center and a debridement was performed as documented. Wound care - Place adaptic next to ulcer then place moistened Fibrocol + and cover with [place] SAP dressings or dry gauze/ABD after washing with soap and water daily. The adpatic next to the ulcer has helped improve his discomfort. Compression - Will apply single layer tubigrip with an VIJAY wrap on top of it to try help decrease his edema. Had another extensive conversation with the patient about the importance of wearing compression, decreasing the swelling to help improve healing. SHAZIA's done at the wound center on 02/20/22. Right SHAZIA = 1.12, Left SHAZIA = 1.21. Venous duplex of right leg on 02/08/22 showed Partially compressible femoral vein with echogenic material consistent with chronic deep venous thrombosis. Visualization is difficult so cannot exclude an acute component. Patent and compressible right great saphenous vein. Normal flow patterns left common femoral vein. He has been started on Warfarin per his PCP. Arterial and venous studies done 05/08/22. The details are under HPI. No arterial compromise. Referred to Dr. Ravi for further evaluation due to the venous studies, the non healing ulcer, the amount of edema the patient is experiencing and how painful this ulcer is. The patient states his appointment is scheduled for 06/13/22. Instructed patient to keep leg elevated whenever sitting. He is to avoid standing for long periods of time, but he may walk with no restrictions. He is returning to work this week and does stand quite a bit there. Encouraged him to elevate his leg when he is on break. Encouraged patient it increase his protein intake and increase Vitamin C to 1,000 mg daily for wound healing. Wound culture obtained 05/08/22 which was positive for MRSE and Staphylococcus lugdunensis and he was treated with Levofloxacin. Wound culture obtained 03/01/22 which was positive for Staphylococcus saprophyticus, he completed Doxycycline. Follow up 2 weeks, per patient request.
== END 2022-06-05 23:59 | disposition home or self-care (01) ==
LOC: WC 14:30
PROVIDERS: PCP Family Medicine; Referring Provider Nurse Practitioner Family; Visit Provider Nurse Practitioner Family
DX: L97.812 Non-pressure chronic ulcer of other part of right lower leg with fat layer exposed (principal); I73.9 Peripheral vascular disease, unspecified; M79.89 Other specified soft tissue disorders; Z79.01 Long term (current) use of anticoagulants; Z86.718 Personal history of other venous thrombosis and embolism
CPT/HCPCS: 11042; 36415; 85610; 87070; 87075; 87077; 87186; 87205; 93923; 93970

== ENCOUNTER 2022-06-12 11:16 | Outpatient (RCR) | payer MEDICARE, SELFPAY ==
[2022-06-06 00:29] VITALS: BP 156/74; PULSE 85; RESP 16; TEMP 36.3
[2022-06-12 11:10] VITALS: BP 131/71; PULSE 74; RESP 18; TEMP 36.1
--- NOTE | 2022-06-12 12:38 | PN.PCM_ITS ---
History of Present Illness Date of Service: 06/12/22 Chief Complaint: Non healing right medial leg venous ulcer History of Wound: Patient is a 71 year old male who presents with a right medial leg ulcer that he states started 4-5 weeks ago. He saw his PCP's PA on 02/06/22 and they treated him with Cephalexin and Doxycycline for cellulitis and ordered a venous ultrasound of his right leg to rule out DVT. Patient has not been placing anything on his ulcer. He states he has been off work since seeing the PA. He is supposed to start back to work this week. 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 He states that this ulcer is very painful. Wound care -Adaptic covered with moistened Fibacol + and topped with gauze/ABD for his moderate amount of drainage. Arterial studies completed on 05/08/22. Right SHAZIA - 1.06, right digital brachial index is 0.77. Left SHAZIA - 1.15, Left digital-brachial index is 0.86. Bilateral Triphasic waveforms. No evidence of significant arterial occlusive disease bilaterally. Venous duplex ultrasound done 05/08/22. Deep veins of the lower extremities are bilaterally patent and compressible segmentally. There is no evidence of deep vein thrombosis on either side. Valvular competence appears intact within the proximal deep venous systems bilaterally. The left sapheno- femoral junction is incompetent . The left great saphenous vein appears segmentally incompetent. The right small saphenous vein is patent and incompetent. An incompetent accessory saphenous vein is noted in the right proximal calf. Today he denies fever, chills, nausea, vomiting. Progress of Wound: Right medial distal leg ulcer cluster is much larger this week. There is an increase of non viable, scabbing tissue present. It continues to be very painful. He states that he has not been putting the adaptic next to his skin and placing the Fibrocol on top of that. His edema is worse this week at +4. He states he does not always wear his compression. Objective Data Objective Data Vital Signs: Vital Signs Temp Pulse Resp BP 97 F L 74 18 131/71 H 06/12/22 11:10 06/12/22 11:10 06/12/22 11:10 06/12/22 11:10 Weight: 230 lb 1.011 oz Charges/Coding Procedures Integumentary 111xxx-113xx: 18565 Deborah subq tissue 20 sq cm/< Add On Codes: [id number] Deborah subq tissue add-on Debridement Note Debridement Note Wound debrided: medial distal leg ulcer cluster Laterality: Right Wound Grade/Stage: Stage II Type of Debridement: Excisional debridement Anesthesia Used: 5% Lidocaine Gel Depth: Down to and including healthy tissue and in the subcutaneous layer Percentage of wound debrided: 100 Instrument Used: 7mm curette Tissue Removed: Devitalized tissue and slough Severity: Fat Layer Exposed Amount of bleeding with debridement: Mild Bleeding Controlled with: Compression and gauze Patient tolerated procedure: Patient did not tolerate procedure well Debridement Free Text: Debridement is very painful for patient Post-Debridement Measurements and Additional Note: Post-Debridement Measurements/Treatment WC - Nurse 1 - General Ulcer Assessment Start: 06/12/22 11:10 Freq: Status: Active Protocol: LATOYA Activity Type Activity Date Activity User E-sign Co-sign Detail Recorded Client Recorded Date Recorded By Document 06/12/22 11:10 [id number] 06/12/22 11:18 RB 06/12/22 11:10 WC - Today's Visit Information Type of service Follow-up Visit (Physician/[employer] ) Arrival Mode Ambulatory Transfer Assistance None Patient Identification Verified (Name & Yes ) Patient Requires Transmission-Based No Precautions Vital Signs Temperature (97.8 F-99.1 F) 97 F L Temperature Source Temporal Pulse Rate (60-100) 74 Pulse Location Monitor Respiratory Rate (12-18) 18 Respiratory rate source Observation Blood Pressure (90/60-120/80) 131/71 H Blood Pressure Mean (mm Hg) 91 Source Monitor Position Semi-Fowlers Blood Pressure Location Left Arm History Since Last Visit- (Skip if this is Patient's initial visit) Have you changed medications since your No last visit? Any new allergies or adverse reactions No Had a fall/change in ADL's that may No increase risk of falls Signs or symptoms of abuse and/or No neglect since last visit Have you been in the hospital since your No last visit? Has dressing in place as prescribed Yes Has compression in place as prescribed No Has offloadiing in place as prescribed No Experienced any changes in pain level or No management Pain Scale: 0-10 Numeric Is Patient Pain Free? Yes - Nurse 1 - General Ulcer Measurement Start: 06/12/22 11:10 Freq: Status: Active Protocol: Activity Type Activity Date Activity User E-sign Co-sign Detail Recorded Client Recorded Date Recorded By Document 06/12/22 11:10 RB [id number] 06/12/22 11:18 RB 06/12/22 11:10 Wound Center Nurse 1 #1 Right Medial LE -Combined with other wound No -Current Size (cm) - Length 6 -Current Size (cm) - Width 5 -Current Size (cm) - Depth 0.1 -Total Square Cm 30 -Tunneling No -Undermining/Tunneling No -Circular Undermining No -Exudate Amt Medium -Exudate Type Serosanguineous -Wound Margin Distinct, Outline Attached -Granulation Amt Medium (34-66%) -Granulation Quality [place] -Slough/Fibrin Yes -Necrosis Amt Large (67-100%) -Necrotic Tissue Type Adherent Slough -Structure Exposed N/A -Texture (Dee-wound Skin Appearance) Localized Edema -Moisture (Dee-wound Skin Appearance) Assessed -Color (Dee-wound Skin Appearance) Hemosiderin Staining -Temperature (Dee-wound Skin No Abnormality Appearance) (Pt Warm) -Tenderness on Palpation (Dee-wound No Skin Appearance) -Ulcer Cleansing Wound Cleanser -Foul Odor after Cleansing No -Anesthetic Used 5% Lidocaine Gel Lower Limb Edema Present Yes Right Calf (cm) 46 Right Ankle (cm) 29.1 WC - Nurse 2 - General Ulcer CM Notes Start: 06/12/22 11:10 Freq: Status: Active Protocol: Activity Type Activity Date Activity User E-sign Co-sign Detail Recorded Client Recorded Date Recorded By Document 06/12/22 11:28 [id number] 06/12/22 11:34 06/12/22 11:28 Wound Center Nurse 2 #1 Right Medial LE -Time 11:29 -Correct Patient Yes -Correct Side, Site, Position Yes -Correct Procedure Yes -Procedure Performed Yes -Type of Procedure Debridement -Clinical Debridement Subcutaneous -Tissue Removed Subcutaneous -Post Debridement (cm) - Length 6.7 -Post Debridement (cm) - Width 4.7 -Post Debridement (cm) - Depth 0.1 -Total Square (Post) (cm) 31.49 -Area of Debridement (cm) - Length 6.7 -Area of Debridement (cm) - Width 4.7 -Total Square (Area) (cm) 31.49 -Tunneling No -Undermining/Tunneling No -Circular Undermining No -Wound/Ulcer Outcome Not Healed -Ulcer Cleansing Rinsed/ Irrigated with Saline -Foul Odor after Cleansing No -Bioengineered Tissue No -Bleeding Controlled with Pressure -Treatment Response Procedure Tolerated Well -Offloading No -Debridement - Subq, 1st 20sq cm Yes -Debridement, SubQ, ea addt'l 20sq cm 1 or part thereof Pain Scale: 0-10 Numeric Is Patient Pain Free? Yes - Nurse 3 - General Ulcer D/C NN Start: 06/12/22 11:10 Freq: Status: Active Protocol: Activity Type Activity Date Activity User E-sign Co-sign Detail Recorded Client Recorded Date Recorded By Document 06/12/22 11:55 [id number] 06/12/22 11:56 06/12/22 11:55 Wound Care Nurse 3 #1 Right Medial LE -Ulcer Cleansing Rinsed/ Irrigated with Saline -Primary Dressing Applied Fibracol Plus 4x4,NonAdherent Contact Layer -Other Dressing jaspal -Primary Dressing Covered/Secured with Dry Gauze,Dry Gauze & Roll Gauze,Secured with Tape -Fibracol Plus 4x4 1 Treatment Response Procedure Tolerated Well Pain Scale: 0-10 Numeric Is Patient Pain Free? Yes - Visit Discharge Discharge Condition Stable Ambulatory Status Ambulatory Transportation Private Auto Clinical Summary of Care Provided Yes Assessment/Plan Assessment/Plan (1) Ulcer of right lower extremity with fat layer exposed: CODE(S): L97.912 - Non-pressure chronic ulcer of unspecified part of right lower leg with fat layer exposed (2) Swelling of right lower extremity: CODE(S): M79.89 - Other specified soft tissue disorders (3) Blood clot in vein: CODE(S): I82.90 - Acute embolism and thrombosis of unspecified vein (4) Peripheral vascular disease: CODE(S): I73.9 - Peripheral vascular disease, unspecified PLAN: Plan Patient was evaluated at the wound healing center and a debridement was performed as documented. Wound care - Place adaptic next to ulcer then place moistened Fibrocol + and cover with [place] SAP dressings or dry gauze/ABD after washing with soap and water daily. The adpatic next to the ulcer has helped improve his discomfort. Compression - Will apply an JASPAL wrap to try help decrease his edema. Had another extensive conversation with the patient about the importance of wearing compression, decreasing the swelling to help improve healing. At this point, getting him to wear any type of compression would be beneficial to not wearing any. SHAZIA's done at the wound center on 02/20/22. Right SHAZIA = 1.12, Left SHAZIA = 1.21. Venous duplex of right leg on 02/08/22 showed Partially compressible femoral vein with echogenic material consistent with chronic deep venous thrombosis. Visualization is difficult so cannot exclude an acute component. Patent and compressible right great saphenous vein. Normal flow patterns left common femoral vein. He has been taking Warfarin per his PCP. Arterial and venous studies done 05/08/22. The details are under HPI. No arterial compromise. Referred to Dr. Ravi for further evaluation due to the venous studies, the non healing ulcer, the amount of edema the patient is experiencing and how painful this ulcer is. The patient states he had to change his appointment to 06/20/22. Instructed patient to keep leg elevated whenever sitting. He is to avoid standing for long periods of time, but he may walk with no restrictions. He is returning to work this week and does stand quite a bit there. Encouraged him to elevate his leg when he is on break. Encouraged patient it increase his protein intake and increase Vitamin C to 1,000 mg daily for wound healing. Wound culture obtained 05/08/22 which was positive for MRSE and Staphylococcus lugdunensis and he was treated with Levofloxacin. Wound culture obtained 03/01/22 which was positive for Staphylococcus saprophyticus, he completed Doxycycline. Follow up 2 weeks, per patient request.
== END 2022-07-06 23:59 | disposition home or self-care (01) ==
LOC: WC 11:16
PROVIDERS: PCP Family Medicine; Referring Provider Nurse Practitioner Family; Visit Provider Nurse Practitioner Family
DX: L97.812 Non-pressure chronic ulcer of other part of right lower leg with fat layer exposed (principal); I73.9 Peripheral vascular disease, unspecified; M79.89 Other specified soft tissue disorders; Z79.01 Long term (current) use of anticoagulants; Z86.718 Personal history of other venous thrombosis and embolism; Z86.711 Personal history of pulmonary embolism
CPT/HCPCS: 11042; 11045

== ENCOUNTER 2022-06-13 13:49 | Outpatient (RCR) | payer MEDICARE, SELFPAY ==
[2022-06-13 16:10] LABS: International Normalized Ratio 2.3; Prothrombin Time (Protime)PT. 24.5 SECONDS (11.7-14.9)
== END 2022-07-06 23:59 ==
LOC: BIMLAB 13:49
PROVIDERS: PCP Family Medicine; Referring Provider Family Medicine; Visit Provider Family Medicine
DX: Z79.01 Long term (current) use of anticoagulants (principal)
CPT/HCPCS: 36415; 85610

== ENCOUNTER 2022-06-15 16:28 | Emergency (ER) | payer MEDICARE, SELFPAY ==
[2022-06-15] VITALS (8 sets, daily range): BP systolic 122–154; BP diastolic 76–91; PULSE 77–105; RESP 15–20; TEMP 36.6; O2SAT 94–100; BMI 34.0
--- NOTE | 2022-06-15 16:39 | EKG12_ITS ---
Test Reason : CP Blood Pressure : / mmHG Vent. Rate : 088 BPM Atrial Rate : 088 BPM P-R Int : 172 ms QRS Dur : 084 ms QT Int : 362 ms P-R-T Axes : 039 057 056 degrees QTc Int : 438 ms Normal sinus rhythm Nonspecific T wave abnormality Abnormal ECG Confirmed by JUAN LEWIS, JORDANA ([id number]), content editor ABIGAIL LOVE ([id number]) on 06/18/2022 11:22:33 AM Referred By: SUGEY Confirmed By:JORDANA MARTINEZ MD
--- NOTE | 2022-06-15 16:42 | RAD_ITS ---
STUDY: X-RAY CHEST REASON FOR EXAM: Male, 71 years old. chest pain TECHNIQUE: Single AP portable view of the chest. COMPARISON: 07/30/2020 FINDINGS: Poor inspiration with some bibasilar atelectasis. There is no demonstrated pleural abnormality. There is moderate cardiac enlargement. Normal mediastinum and bruce. Normal visualized pulmonary arteries. Normal visualized aortic arch and descending thoracic aorta. Normal visualized thoracic spine. Normal visualized ribs, clavicles, and shoulders. There is no demonstrated abnormality of the visualized soft tissue structures of the upper abdomen. RAD/Chest 1 View (Portable) IMPRESSION: Poor inspiration with some bibasilar atelectasis. Electronically Signed: Brayan Aguilar MD at 17:09 EST ,
[2022-06-15 16:49] LABS: Absolute Lymphocyte Count 1.59 X10^3/uL (0.83-4.51); Absolute Neutrophil Count 7.9 X10^3/uL (2.0-7.7); Basophil# 0.04 X10^3/uL; Basophil% 0.4 % (0-1); Eosinophil# 0.31 X10^3/uL; Eosinophils% 2.9 % (0-5); Hematocrit 42.3 % (40-54); Hemoglobin 13.7 g/dL (13.0-16.5); Lymphocyte # 1.59 X10^3/ul (0.83-4.51); Lymphocyte % 14.7 % (19-41); Mean Corp Hgb Conc 32.4 g/dL (32-36); Mean Corpuscular Hgb 29.7 pg (27.0-32.0); Mean Corpuscular Volume 91.6 fL (80-94); Mean Platelet Vol. 8.3 fl (6.2-12.0); Monocyte# 0.92 X10^3/uL; Monocyte% 8.5 % (0-10); NRBC Flagged by Analyzer 0 % (0-5); Neutrophil # 7.93 X10^3/uL (2.7-7.7); Neutrophil % 73.2 % (47-70); Platelet Count 320 K/mm3 (150-450); RBC Distribution Width CV 14.4 % (11.6-14.6); RBC Distribution Width SD 48.8 fl (35.1-43.9); Red Blood Count 4.62 M/mm3 (4.6-6.2); White Blood Count 10.8 K/mm3 (4.4-11.0)
--- NOTE | 2022-06-15 16:53 | ED.VIS.CHEST ---
HPI History of Present Illness Chief Complaint: Chest Pain Informant: patient and spouse/S.O. Onset/Context/Timing Onset: Today and Hours Activity at onset: gradual Quality: Positive for Aching and Dull Location: Substernal Current Severity: Mild Maximum Severity: Mild Worsened By: Nothing Relieved By: Nothing Associated Symptoms: Negative for Nausea, Vomiting, Diaphoresis, Dyspnea, Cough, Fever, Lightheadedness, Acid Reflux or Palpitations Narrative Narrative: 71-year-old male complaining of chest discomfort. No prior cardiac history. 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 Patient denies exertional chest pain recently. No hemoptysis. Had been a smoker for 50 years but quit 7 years ago. Denies current dyspnea. No fever or chills. Prior Similar Symptoms: No Recent Illness/Hospitalization: No CVD Risk Factors: Negative for Diabetes PE Risk Factors: Positive for Prior DVT or PE; Negative for Recent Travel/Surgery, Recent Immobilization, Cancer or OCP + Smoking + >/=35 TAD Risk Factors: Negative for Marfan's Syndrome [facility] Medical History (Updated 06/15/22 @ 22:[address] Rohit Mckeon MD) Blood clot in vein Bone fracture Hearing problem Home Medications levofloxacin 500 mg tablet 500 mg PO DAILY 14 days #14 tabs 05/17/22 [Rx Last Taken Unknown] warfarin 5 mg tablet 5 mg PO DAILY #60 tabs 05/27/22 [Rx Last Taken Unknown] Allergy/AdvReac Type Severity Reaction Status Date / Time No Known Allergies Allergy Verified 06/15/22 16:29 Family History Brother Blood clot in vein Sister Blood clot in vein Surgical History History of hand surgery Social History Smoking Status: Former smoker alcohol intake: never substance use type: does not use what type of physical activity do you participate in: none ROS ROS ED ROS Narrative Denies recent illness. Review of Systems ROS Unobtainable: Denies due to encephalopathy Constitutional Constitutional ED: Denies chills or fever(s) Eyes Eyes: Denies none ENT ENT ED: Denies ear pain Cardiovascular Cardiovascular: Reports as per HPI and chest pain; Denies palpitations or racing heartbeat Respiratory/Chest Respiratory/Chest: Denies cough or dyspnea Gastrointestinal Gastrointestinal: Denies abdominal pain Genitourinary Genitourinary ED: Denies dysuria or hematuria Musculoskeletal Musculoskeletal: Denies arthralgias Integumentary Denies abscess or Abrasions Neurologic Neurologic: Denies headache(s) Psychiatric Psychiatric: Denies anxiety or depression Endocrine Endocrinology: Denies cold intolerance Hematologic/Lymphatic Hematologic/Lymphatic: Denies easy bleeding Allergic/Immunologic Allergic/Immunologic ED: Denies mouth swelling or tongue swelling EXAM Physical Exam Narrative Exam Narrative: 71-year-old male no acute distress. H EENT exam unremarkable. Neck nontender. Lungs clear to auscultation. Heart regular rhythm no murmur. Abdomen soft nontender. Nondistended normal bowel sounds no peritoneal signs. Moving all 4 extremities. Calves are nontender. Neurologically is awake alert with no focal motor deficits. Const Vital Signs: 06/15/22 16:29 06/15/22 17:22 06/15/22 16:39 Temperature 97.9 F Temperature Source Temporal Pulse Rate 89 91 Respiratory Rate 18 17 Blood Pressure 154/91 H 143/86 H Blood Pressure Mean 112 105 Pulse Ox 96 97 97 Oxygen Delivery Method Room Air Room Air Room Air 06/15/22 18:56 06/15/22 19:28 06/15/22 19:34 Temperature Temperature Source Pulse Rate 105 H 100 Respiratory Rate Blood Pressure 131/79 H 125/90 H 122/88 H Blood Pressure Mean 101 Pulse Ox Oxygen Delivery Method 06/15/22 20:05 Temperature Temperature Source Pulse Rate 102 H Respiratory Rate 20 H Blood Pressure 141/79 H Blood Pressure Mean 99 Pulse Ox 94 Oxygen Delivery Method Room Air Positive well nourished, well developed and obese; Negative for cachectic, contractures or unkempt General Appearance ED: well developed and NAD; Negative for unkempt, cachectic, contractures or pallor Nutritional Appearance: obese; Negative for cachectic HEENT Reports moist mucous membranes; Denies dry mucous membranes normocephalic and atraumatic; Negative for trauma or tenderness Mouth ED: No dry mucous membranes Mouth: No dry mucous membranes Eyes PERRL and EOMs intact bilaterally General Eye ED: Negative for pale conjunctiva or scleral icterus Neck no lymphadenopathy, supple and no JVD General: Negative for tenderness Chest Wall inspection of chest normal and palpation of chest normal Resp normal respiratory effort and clear to auscultation bilaterally Effort and Inspection: Negative for respiratory distress or pain with movement Auscultation: Negative for rales, rhonchi or wheezes Cardio regular rate, regular rhythm, S1 normal heart sound, S2 normal heart sound and no murmurs Rate: Negative for bradycardia or tachycardic Rhythm: Negative for abnormal rhythm GI normal to inspection, nondistended, normoactive bowel sounds, soft to palpation, non-tender, non-distended and no masses Auscultation: Negative for hyperactive bowel sounds Back/Spine no thoracic nor lumbar tenderness; Negative for no CVA tenderness General Back: Negative for CVA tenderness Extremity normal to inspection General Extremety ED: Negative for edema General Extremity: Negative for edema Neuro oriented x3 and CN's II-XII intact bilaterally Sensorium / Orientation: awake, alert, oriented to person and oriented to place; Negative for oriented to time, confused, lethargic or stuporous Motor Exam: strength 5/5 throughout Psych mental status grossly normal Appearance: Negative for unkempt Attitude: No agitated Mood & Affect: Negative for depressed, anxious or tearful Skin no rashes or lesions noted and no wounds General Skin Exam: Negative for jaundice or pallor Rashes: No rashes noted Trauma: Negative for abrasion or laceration Heart Score History: Slightly/Non-Suspicious ECG: Normal Age: >/= 65 years Risk Factors: 1 or 2 Risk Factors Troponin: </= Normal Limit Score: 3 MDM MDM MDM Narrative Medical decision making narrative: 71-year-old male with nonexertional chest pain today. Ev Coumadin for prior DVT on. Exam benign. EKG unremarkable. Cardiac work-up. Repeat exam patient doing well 6:35 PM. We went over his initial test results. Oral waiting for a second troponin to be drawn in 2 hours. Due to his Coumadin level being subtherapeutic I have now ordered an INR. Results will dictate further testing. Currently stable and doing well. Repeat exam patient is doing well at 10:50 PM. We went over all his test results including his CAT scan. 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 He lifts 7 pound hoax to any change at a time and does as many as 500 or more of these a day. He thinks he may have strained his chest wall because he was doing this a lot yesterday and his discomfort started today. It is worse with some movement. He does have some mild reproducible pain. His CAT scan was negative. Both troponins were negative. He is comfortable being discharged home. He will take his normal Coumadin dose at home. Tylenol and ice to his chest wall and follow-up with his doctor. Lab Data Attestation: I reviewed the patient's lab results. Lab results narrative: CBC White count 10.7. H&H 13 and 42. Platelets 320. PT/INR is PT is 21.7 INR is 1.9. Electrolytes show a gap of 4 BUN 26 creatinine 1.33. Glucose 115. Troponins 8. D-dimer elevated at 1.62 therefore a CTA of the chest will be ordered. CTA shows no pulmonary emboli. No dissection as read by the radiologist. Second troponin is normal also at 7. Labs: Laboratory Results - last 24 hr 06/15/22 06/15/22 06/15/22 16:42 16:42 16:42 WBC 10.8 RBC 4.62 Hgb 13.7 Hct 42.3 MCV 91.6 MCH 29.7 MCHC 32.4 RDW Std Deviation 48.8 H RDW Coeff of Noé 14.4 Plt Count 320 MPV 8.3 Immature Gran % (Auto) 0.300 Neut % (Auto) 73.2 H Lymph % (Auto) 14.7 L [place] % (Auto) 8.5 Eos % (Auto) 2.9 Baso % (Auto) 0.4 Absolute Neuts (auto) 7.9 H Absolute Lymphs (auto) 1.59 Nucleated RBC % 0 PT 21.7 H INR 1.9 D-Dimer Quant (PE/DVT) Sodium 136 Potassium 4.2 Chloride 104 Carbon Dioxide 28.0 Anion Gap 4 L BUN 26 H Creatinine 1.33 H Estim Creat Clear Calc 50.20 Est GFR (MDRD) Af Amer 68 Est GFR (MDRD) Non-Af 56 L BUN/Creatinine Ratio 19.5 Glucose 115 H Calcium 9.0 Troponin I High Sens 8 06/15/22 06/15/22 16:42 18:45 WBC RBC Hgb Hct MCV MCH MCHC RDW Std Deviation RDW Coeff of Noé Plt Count MPV Immature Gran % (Auto) Neut % (Auto) Lymph % (Auto) [place] % (Auto) Eos % (Auto) Baso % (Auto) Absolute Neuts (auto) Absolute Lymphs (auto) Nucleated RBC % PT INR D-Dimer Quant (PE/DVT) 1.62 H* Sodium Potassium Chloride Carbon Dioxide Anion Gap BUN Creatinine Estim Creat Clear Calc Est GFR (MDRD) Af Amer Est GFR (MDRD) Non-Af BUN/Creatinine Ratio Glucose Calcium Troponin I High Sens 7 Radiography Chest X-Ray - ED: 1 View, Read by ED Physician, Read by Radiologist, Heart, Lungs, Mediastinum, Bony Structures, No Acute Disease and Chronic Changes Diagnostic Testing: Clinical Impression(s) from Imaging Studies Chest X-Ray 06/15/22 16:42 IMPRESSION: Poor inspiration with some bibasilar atelectasis. Electronically Signed: Brayan Aguilar MD at 17:09 EST Reading Location ID and State: [facility] / [employer] , Service support , Chest CTA 06/15/22 19:04 IMPRESSION: Normal CTA chest examination, without a demonstrated pulmonary embolism or arterial dissection. Electronically Signed: Brayan Aguilar MD at 20:16 EST Reading Location ID and State: [employer] [facility] / [employer] , Service support , Chest x-ray, portable, single view interpreted both by myself and the radiologist shows chronic changes. Atelectasis versus small right pleural effusion. No infiltrate. No pneumonia. Rhythm Strip Rhythm Strip: Sinus Rhythm Rate: 88 Ectopy: None EKG Initial EKG: Attestation: I personally reviewed and interpreted this EKG as follows: Interpretation: Sinus Rhythm and No Acute Injury Pattern Comments: Normal sinus rhythm rate of 88 no acute signs of [place] nor ischemia. Discharge Plan Triage Chief Complaint: Chest Pain ED Provider: Rohit Mckeon Dx/Rx/DC Orders Clinical Impression: Chest pain, History of deep vein thrombosis Instructions: ED Chest Pain, Uncertain Cause Prescriptions: No Action levofloxacin 500 mg tablet 500 mg PO DAILY 14 Days Qty: 14 0RF warfarin 5 mg tablet 5 mg PO DAILY Qty: 60 6RF Primary Care Provider: Roderick Stephen Referrals: Roderick Stephen, DO [Primary Care Provider] - 3-5 Days Activity Restrictions/Additional Instructions: Your cardiac and blood clot work-ups were both negative. No signs of pneumonia. You may have strained her chest wall from the activity and lifting you do a work. Ice to your chest wall. Tylenol for pain. Follow-up with your doctor. Disposition Disposition: Home, Self Care
[2022-06-15 17:06] LABS: International Normalized Ratio 1.9; Prothrombin Time (Protime)PT. 21.7 SECONDS (11.7-14.9)
[2022-06-15 17:09] LABS: Anion Gap 4 (5-15); BUN 26 mg/dL (7-18); BUN/Creat Ratio 19.5 RATIO (10-20); Chloride 104 mmol/L (98-107); Creatinine, Serum 1.33 mg/dL (0.70-1.30); EST Glomerular Filtration Rate 56 mL/min (>60); Est Glom Filt Rate - Afr Amer 68 mL/min (>60); Glucose 115 mg/dL (74-106); Potassium 4.2 mmol/L (3.5-5.1); Sodium Level 136 mmol/L (136-145); Troponin-I HS (w/2H Reflex) 8 pg/mL (3.0-78.0)
[2022-06-15 18:44] LABS: Reflex Troponin-HS? (from REC) Y
[2022-06-15 18:55] LABS: D-Dimer Quantitative (DVT/PE) 1.62 FEU/ug/m (0.27-0.49)
[2022-06-15] MEDS: Nitroglycerin SL (ED/IMG/CATH) 0.4 MG TABLET SL (18:56)
--- NOTE | 2022-06-15 19:04 | CT_ITS ---
STUDY: CTA CHEST REASON FOR EXAM: Male, 71 years old. cp and elevated d-dimer RADIATION DOSAGE (If Supplied By Facility): CTDIvol = ( 18.48 ) mGy, DLP = ( 564.21 ) mGycm TECHNIQUE: The examination was performed with the intravenous administration of IV 100mL Isovue-370. Post-processing of the angiographic images was performed, with multiplanar reformation and 3D reconstruction. Individualized dose optimization techniques were used for this CT. COMPARISON: 07/30/2020, chest x-ray earlier today FINDINGS: Normal enhancement of the main pulmonary artery and right and left pulmonary arteries. Normal enhancement of the bilateral peripheral pulmonary arteries. There is no demonstrated pulmonary embolism. Normal thoracic aorta and visualized great vessels. There is no demonstrated aortic dissection. Normal heart and pericardium. Normal mediastinum. Normal hilar regions. Normal visualized trachea and bronchi. The lungs are well expanded. Suspect partial resection of the right lung. Some right lower lobe discoid atelectasis versus scarring and the posterior alveolar density in the consistent with rounded atelectasis which is unchanged. Some left lower lobe atelectasis as well. Normal pleura. Normal chest wall structures. Normal osseous structures. No change in the very large peripherally calcified cyst in the upper pole the left kidney. CT/CTA Chest W/WO Contrast IMPRESSION: Normal CTA chest examination, without a demonstrated pulmonary embolism or arterial dissection. Electronically Signed: Brayan Aguilar MD at 20:16 EST ,
[2022-06-15 19:10] LABS: Troponin-I HS 7 pg/mL (3.0-78.0)
[2022-06-15] MEDS: Nitroglycerin Oint 1 INCH PACKET TD (19:34)
== END 2022-06-15 23:11 | disposition home or self-care (01) ==
PROVIDERS: Emergency Provider Emergency Medicine; PCP Family Medicine; Visit Provider Emergency Medicine
DX: R07.9 Chest pain, unspecified (principal); Z87.891 Personal history of nicotine dependence; Z86.718 Personal history of other venous thrombosis and embolism
CPT/HCPCS: 71045; 71275; 80048; 84484; 85025; 85379; 85610; 93005; 99284; Q9967; A4216

== ENCOUNTER 2022-07-10 08:51 | Day surgery (SDC) | payer MEDICARE, SELFPAY ==
[2022-07-09 09:43] VITALS: BMI 34.8
[2022-07-10 09:30] LABS: International Normalized Ratio 3.3; Prothrombin Time (Protime)PT. 33.1 SECONDS (11.7-14.9)
--- NOTE | 2022-07-10 13:46 | PCM.OPRPT ---
Report of Operation Date of Procedure: 07/10/22 Pre-Operative Diagnosis: Venous insufficiency with ulceration of the right lower extremity Post-Operative Diagnosis: Same, plus compression of the right common iliac vein Surgery/Procedure Performed:: Venogram of inferior vena cava Intravascular ultrasound of the inferior vena cava, right common and external iliac veins, left common and external iliac veins Angioplasty, stenting of right common iliac vein Description of Surgical Findings:: 66% compression of the right common iliac vein, resolved after intervention Surgeon: Ken Ravi Type of Anesthesia: Local and Sedation,Conscious Estimated Blood Loss (mL): 10 Description of Procedure: HPI: Patient is a 71-year-old male with longstanding chronic venous stasis changes of the bilateral extremities, and a current ulceration right lower extremity which has been refractory to compression and medical therapy. Given the severity of his venous insufficiency he is taken now for venogram with possible intervention on any obstructive process of the outflow veins. Description of procedure: Upon obtaining form consent and verification correct patient procedure and site patient was taken to [facility] where he was positioned prepped and draped in usual sterile fashion. Time was then performed and conscious sedation administered with intermittent doses of Versed and fentanyl. Skin overlying the right common femoral vein was anesthetized 1% lidocaine and access obtained under ultrasound guidance in retrograde fashion with a micropuncture needle and wire. This was then exchanged out for micropuncture sheath through which injection iliac and vena cava venogram was performed which showed significant collateralization within the pelvis and filling into the contralateral iliac system. Bentson wire was advanced and the micropuncture sheath exchanged out for an 11 Prydeinig sheath. Next the skin overlying the left common femoral vein was anesthetized 1% lidocaine and access obtained and ultrasound guidance with a microneedle and wire. This was then exchanged out for micropuncture sheath through which an ileal caval venogram was performed which revealed no significant collateralization of the left iliac vein system. Through the micro sheath Bentson wire was advanced and the micropuncture exchanged for an 8 Prydeinig sheath. Patient was then heparinized allowed to circulate for 3 minutes after which intravascular sound probe was advanced via the right femoral access sheath and a digital recorded pullback of the inferior vena cava right common iliac and right external iliac veins was performed. This revealed significant compression of the mid to distal right common iliac vein with otherwise normal caliber vessels. The ultrasound probe was then withdrawn and advanced via the left femoral access sheath into the vena cava and recorded pullback performed of the inferior vena cava left common and external iliac veins. This revealed no significant compression of the left iliac vessels. The ultrasound probe was then withdrawn and readvanced via the right femoral access sheath and the location of the vena cava confluence in relation to the compression was marked. The ultrasound probe was then withdrawn and the area of compression predilated with a 12 mm [employer] [place] balloon. Next a 16 x 90 [employer] Wallstent was brought on the field and prep for cardiac exercise physiologist instructions. This was advanced in the position at the vena cava confluence centered around the compression and deployed. The stent was then postdilated with a 14 x 40 balloon angioplasty balloon throughout the entirety of its length. Completion intravascular ultrasound recorded pullback was performed which revealed satisfactory stent to wall apposition, satisfactory resolution of the compression. Completion venogram revealed brisk contrast transit across the stented segment. See no further lesions requiring intervention the sheaths and wires were then withdrawn and manual pressure held for 10 minutes after which dry sterile dressings were applied. Patient was then awakened from sedation taken to the recovery room for bedrest with anticipated discharge home. Radiograph interpretation: Normal caliber vena cava with no significant obstruction or collateralization noted. Right common and external iliac veins with delayed contrast transit and cross pelvic collateralization to the contralateral system. Collateralization significantly diminished after intervention. Left common and external iliac veins brisk contrast transit and no pelvic collateralization. Grafts/Implants Used: [employer] Wall stent 16 x 90
== END 2022-07-10 16:15 | disposition home or self-care (01) ==
LOC: CLSP 08:53
PROVIDERS: PCP Family Medicine; Referring Provider Surgery Trauma Surgery; Visit Provider Surgery Trauma Surgery
DX: I87.2 Venous insufficiency (chronic) (peripheral) (principal); L97.919 Non-pressure chronic ulcer of unspecified part of right lower leg with unspecified severity; I73.9 Peripheral vascular disease, unspecified; Z87.891 Personal history of nicotine dependence; Z79.01 Long term (current) use of anticoagulants; M79.89 Other specified soft tissue disorders; R53.83 Other fatigue; Z86.718 Personal history of other venous thrombosis and embolism
CPT/HCPCS: 36010; 36415; 37238; 37252; 37253; 75825; 76937; 85610; 86850; 86900; 86901; 99152; 99153; C1725; C1753; C1769; J7040; Q9967; C1876; C1894

== ENCOUNTER 2022-07-30 13:03 | Outpatient (RCR) | payer MEDICARE, SELFPAY ==
[2022-07-18 16:58] LABS: Prothrombin Time (Protime)PT. 30.6 SECONDS (11.7-14.9)
[2022-07-30 15:25] LABS: International Normalized Ratio 3.7; Prothrombin Time (Protime)PT. 36.8 SECONDS (11.7-14.9)
== END 2022-08-06 23:59 ==
LOC: BIMLAB 13:03
PROVIDERS: PCP Family Medicine; Referring Provider Family Medicine; Visit Provider Family Medicine
DX: Z79.01 Long term (current) use of anticoagulants (principal); I82.509 Chronic embolism and thrombosis of unspecified deep veins of unspecified lower extremity
CPT/HCPCS: 36415; 85610

== ENCOUNTER 2022-08-16 15:04 | Outpatient (RCR) | payer MEDICARE, SELFPAY ==
[2022-08-16 16:41] LABS: International Normalized Ratio 1.6; Prothrombin Time (Protime)PT. 18.8 SECONDS (11.7-14.9)
== END 2022-09-03 23:59 ==
LOC: BIMLAB 15:04
PROVIDERS: PCP Family Medicine; Referring Provider Family Medicine; Visit Provider Family Medicine
DX: I82.509 Chronic embolism and thrombosis of unspecified deep veins of unspecified lower extremity (principal); Z79.01 Long term (current) use of anticoagulants
CPT/HCPCS: 36415; 85610

== ENCOUNTER → 2022-10-30 | Outpatient (CLI) | payer MEDICARE, SELFPAY ==
[2022-10-30 15:31] LABS: International Normalized Ratio 1.4; Prothrombin Time (Protime)PT. 17.1 SECONDS (11.7-14.9)
== END | disposition home or self-care (01) ==
LOC: BIMLAB 13:15
PROVIDERS: PCP Family Medicine; Visit Provider Family Medicine
DX: I82.509 Chronic embolism and thrombosis of unspecified deep veins of unspecified lower extremity (principal)
CPT/HCPCS: 36415; 85610

== ENCOUNTER 2022-12-24 16:09 | Outpatient (RCR) | payer MEDICARE, SELFPAY ==
[2022-12-24 17:08] LABS: International Normalized Ratio 2.5; Prothrombin Time (Protime)PT. 27.3 SECONDS (11.7-14.9)
== END 2023-01-03 23:59 ==
LOC: BIMLAB 16:09
PROVIDERS: PCP Family Medicine; Referring Provider Family Medicine; Visit Provider Family Medicine
DX: Z79.01 Long term (current) use of anticoagulants (principal)
CPT/HCPCS: 36415; 85610

== ENCOUNTER 2023-02-11 15:02 | Outpatient (RCR) | payer MEDICARE, SELFPAY ==
[2023-02-11 16:08] LABS: International Normalized Ratio 2.5; Prothrombin Time (Protime)PT. 27.7 SECONDS (11.7-14.9)
== END 2023-03-06 23:59 ==
LOC: BIMLAB 15:02
PROVIDERS: PCP Family Medicine; Referring Provider Family Medicine; Visit Provider Family Medicine
DX: Z79.01 Long term (current) use of anticoagulants (principal)
CPT/HCPCS: 36415; 85610

== ENCOUNTER 2023-07-03 15:27 | Outpatient (RCR) | payer MEDICARE, SELFPAY ==
[2023-07-03 17:02] LABS: International Normalized Ratio 2.6; Prothrombin Time (Protime)PT. 28.1 SECONDS (11.7-14.9)
== END 2023-07-06 23:59 ==
LOC: BIMLAB 15:27
PROVIDERS: PCP Family Medicine; Referring Provider Family Medicine; Visit Provider Family Medicine
DX: I73.9 Peripheral vascular disease, unspecified
CPT/HCPCS: 36415; 85610

== ENCOUNTER 2023-08-05 13:14 | Outpatient (RCR) | payer MEDICARE, SELFPAY ==
[2023-08-05 15:16] LABS: International Normalized Ratio 2.4; Prothrombin Time (Protime)PT. 26.6 SECONDS (11.7-14.9)
== END 2023-08-06 23:59 ==
LOC: BIMLAB 13:14
PROVIDERS: PCP Family Medicine; Referring Provider Family Medicine; Visit Provider Family Medicine
DX: I73.9 Peripheral vascular disease, unspecified
CPT/HCPCS: 36415; 85610

== ENCOUNTER → 2023-09-02 | Outpatient (CLI) | payer MEDICARE, SELFPAY ==
[2023-09-02 12:30] LABS: Prothrombin Time (Protime)PT. 30.9 SECONDS (11.7-14.9)
== END | disposition home or self-care (01) ==
LOC: BIMLAB 10:12
PROVIDERS: PCP Family Medicine; Visit Provider Family Medicine
DX: I82.509 Chronic embolism and thrombosis of unspecified deep veins of unspecified lower extremity (principal)
CPT/HCPCS: 36415; 85610

== ENCOUNTER 2023-11-13 15:34 | Outpatient (RCR) | payer MEDICARE, SELFPAY ==
[2023-11-13 16:50] LABS: International Normalized Ratio 3.2; Prothrombin Time (Protime)PT. 32.4 SECONDS (11.7-14.9)
== END 2023-12-05 23:59 ==
LOC: BIMLAB 15:34
PROVIDERS: PCP Family Medicine; Referring Provider Family Medicine; Visit Provider Family Medicine
DX: I73.9 Peripheral vascular disease, unspecified
CPT/HCPCS: 36415; 85610

== ENCOUNTER → 2023-11-18 | Outpatient (CLI) | payer MEDICARE, SELFPAY ==
[2023-11-18 14:26] LABS: Bacteria 0 SEEN /hpf (None Seen); Mucous, Urine 0 SEEN /hpf (<or=2+); Red Blood Cells-Urine 0 SEEN /hpf (0-5); Squamous Epithelial Cells - UA 0 SEEN /hpf (0-5)
[2023-11-18 15:19] LABS: Color, Urine Yellow (Yellow); Glucose, Dipstick Normal (Normal); Ketone-Dipstick Negative (Negative); Leukocyte Esterase-Dipstick 25 /ul (Negative); Nitrite-Dipstick Negative (Negative); Occult Blood-Urine Negative /ul (Negative); Protein-Dipstick 15 mg/dl (Negative); Urine Bilirubin Dipstick Negative (Negative); Urine Clarity Clear (Clear); Urine Urobilinogen 1 mg/dl (Normal)
[2023-11-18 15:26] LABS: White Blood Cells 0-5 SEEN /hpf (0-5)
[2023-11-18 15:28] LABS: Absolute Lymphocyte Count 1.49 X10^3/uL (0.83-4.51); Absolute Neutrophil Count 4.3 X10^3/uL (2.0-7.7); Basophil# 0.05 X10^3/uL; Basophil% 0.8 % (0-1); Eosinophil# 0.15 X10^3/uL; Eosinophils% 2.3 % (0-5); Hemoglobin 13.5 g/dL (13.0-16.5); Lymphocyte # 1.49 X10^3/ul (0.83-4.51); Lymphocyte % 22.4 % (19-41); Mean Corp Hgb Conc 32.1 g/dL (32-36); Mean Corpuscular Hgb 28.6 pg (27.0-32.0); Mean Platelet Vol. 8.8 fl (6.2-12.0); Monocyte# 0.66 X10^3/uL; Monocyte% 9.9 % (0-10); NRBC Flagged by Analyzer 0 % (0-5); Neutrophil # 4.29 X10^3/uL (2.7-7.7); Neutrophil % 64.3 % (47-70); Platelet Count 311 K/mm3 (150-450); RBC Distribution Width CV 14.1 % (11.6-14.6); RBC Distribution Width SD 46.3 fl (35.1-43.9); Red Blood Count 4.72 M/mm3 (4.6-6.2); White Blood Count 6.7 K/mm3 (4.4-11.0)
[2023-11-18 16:08] LABS: ALB/GLOB Ratio 0.7 RATIO (0.9-2.4); AST(SGOT) 11 U/L (15-37); Alanine Aminotransfer ALT/SGPT 21 U/L (16-61); Albumin, Serum 3.4 g/dL (3.2-5.0); Alkaline Phosphatase 74 U/L (45-117); Anion Gap 6 (5-15); BUN 19 mg/dL (7-18); BUN/Creat Ratio 12.4 RATIO (10-20); Chloride 104 mmol/L (98-107); Creatinine, Serum 1.53 mg/dL (0.70-1.30); EST Glomerular Filtration Rate 48 mL/min (>60); Est Glom Filt Rate - Afr Amer 58 mL/min (>60); Globulin 4.7 g/dL (2.2-4.2); Glucose 100 mg/dL (74-106); Lipase 17 U/L (13-75); Potassium 4.6 mmol/L (3.5-5.1); Protein, Total 8.1 g/dL (6.4-8.2); Sodium Level 138 mmol/L (136-145)
== END | disposition home or self-care (01) ==
LOC: BIMLAB 14:12
PROVIDERS: PCP Family Medicine; Visit Provider Nurse Practitioner
DX: R10.9 Unspecified abdominal pain (principal)
CPT/HCPCS: 36415; 80053; 81001; 83690; 85025

== ENCOUNTER → 2023-12-10 | Outpatient (CLI) | payer MEDICARE, SELFPAY ==
--- NOTE | 2023-12-10 18:43 | CT_ITS ---
STUDY: CT ABDOMEN AND PELVIS WITH CONTRAST REASON FOR EXAM: Male, 73 years old. abdominal pain RADIATION DOSAGE (If Supplied By Facility): CTDIvol = ( 18.61 ) mGy, DLP = ( 1384.23 ) mGycm TECHNIQUE: Transaxial images were obtained from the dome of the diaphragm to the symphysis pubis without oral contrast. Oral and amp; IV Readi-CAT and amp; 100mL Isovue-370 was administered. Sagittal and coronal images were reconstructed. Individualized dose optimization techniques were used for this CT. COMPARISON: June 15, 2022. FINDINGS: Focal right basilar infiltrate/atelectasis. The visualized portions of the heart are within normal limits. 1.7 cm cyst in the liver similar to previous study. Cholelithiasis. No significant dilatation of the extrahepatic biliary system. Normal spleen. Normal pancreas. Normal right kidney. There is a large upper pole left renal or suprarenal 11.5 x 9.7 x 11.9 cm cystic mass with rim calcifications. Lower pole simple cysts of the left kidney. Normal visualized stomach. Normal small intestine. Diverticulosis of the colon. The appendix is visualized and appears normal. Calcified abdominal aorta. Normal inferior vena cava. There is stent in the left iliac vein. Normal retroperitoneum. Normal urinary bladder. Fatty umbilical hernia of the abdominal wall. Normal osseous structures. CT/Abdomen/Pelvis WITH Contrast IMPRESSION: Left upper pole renal or suprarenal cystic mass cyst, similar to previous study. Cholelithiasis. Stable hepatic hypoattenuated nodule. Colonic diverticulosis. Right basilar focal consolidation/atelectasis. Electronically Signed: Hadley Dalton DO at 20:24 EDT Reading Location ID and State: [facility] / [place] Tel [phone], Service support ,
== END | disposition home or self-care (01) ==
LOC: CT 18:40
PROVIDERS: PCP Family Medicine; Referring Provider Nurse Practitioner; Visit Provider Nurse Practitioner
DX: R10.9 Unspecified abdominal pain (principal); K59.00 Constipation, unspecified
CPT/HCPCS: 74177; Q9967

== ENCOUNTER 2024-01-19 09:31 | Outpatient (RCR) | payer MEDICARE, SELFPAY ==
[2024-01-07 15:49] LABS: Prothrombin Time (Protime)PT. 41.2 SECONDS (11.7-14.9)
[2024-01-07 16:12] LABS: International Normalized Ratio 4.3
[2024-01-19 12:14] LABS: International Normalized Ratio 1.5; Prothrombin Time (Protime)PT. 17.7 SECONDS (11.7-14.9)
== END 2024-02-04 23:59 ==
LOC: BIMLAB 09:31
PROVIDERS: PCP Family Medicine; Referring Provider Family Medicine; Visit Provider Family Medicine
DX: I73.9 Peripheral vascular disease, unspecified
CPT/HCPCS: 36415; 85610

== ENCOUNTER → 2024-02-24 | Outpatient (CLI) | payer MEDICARE, SELFPAY ==
[2024-02-24 12:19] LABS: International Normalized Ratio 2.1; Prothrombin Time (Protime)PT. 23.2 SECONDS (11.7-14.9)
== END | disposition home or self-care (01) ==
LOC: BIMLAB 10:11
PROVIDERS: PCP Family Medicine; Visit Provider Family Medicine
DX: I73.9 Peripheral vascular disease, unspecified (principal)
CPT/HCPCS: 36415; 85610

== ENCOUNTER 2024-04-12 10:38 | Outpatient (RCR) | payer MEDICARE, SELFPAY ==
[2024-04-12 12:26] LABS: International Normalized Ratio 2.9; Prothrombin Time (Protime)PT. 30.2 SECONDS (11.7-14.9)
== END 2024-05-06 23:59 ==
LOC: BIMLAB 10:38
PROVIDERS: PCP Family Medicine; Referring Provider Family Medicine; Visit Provider Family Medicine
DX: I73.9 Peripheral vascular disease, unspecified
CPT/HCPCS: 36415; 85610

== ENCOUNTER → 2024-08-04 | Outpatient (CLI) | payer MEDICARE, SELFPAY ==
[2024-08-04 18:08] LABS: International Normalized Ratio 1.8
== END | disposition home or self-care (01) ==
LOC: BIMLAB 15:03
PROVIDERS: PCP Family Medicine; Visit Provider Family Medicine
DX: Z79.01 Long term (current) use of anticoagulants (principal)
CPT/HCPCS: 36415; 85610

== ENCOUNTER 2024-08-31 09:53 | Outpatient (RCR) | payer MEDICARE, SELFPAY ==
[2024-08-31 13:34] LABS: International Normalized Ratio 2.8; Prothrombin Time (Protime)PT. 29.9 SECONDS (11.7-14.9)
[2024-08-31 19:09] LABS: Anion Gap 12 (5-15); BUN 22 mg/dL (4-19); BUN/Creat Ratio 16.9 RATIO (10-20); Calcium 9.7 mg/dL (7.6-11.0); Carbon Dioxide 25.6 mmol/L (22.0-29.0); Chloride 102 mmol/L (96-108); Creatinine, Serum 1.3 mg/dL (0.8-1.3); EST Glomerular Filtration Rate 57 (>60); Glucose 63 mg/dL (70-99); Potassium 4.6 mmol/L (3.3-5.1); Sodium Level 139 mmol/L (133-145)
== END 2024-09-03 23:59 ==
LOC: BIMLAB 09:53
PROVIDERS: PCP Family Medicine; Referring Provider Family Medicine; Visit Provider Family Medicine
DX: I82.509 Chronic embolism and thrombosis of unspecified deep veins of unspecified lower extremity
CPT/HCPCS: 36415; 80048; 85610

== ENCOUNTER 2024-11-15 10:32 | Outpatient (RCR) | payer MEDICARE, SELFPAY ==
[2024-11-15 12:34] LABS: International Normalized Ratio 2.1; Prothrombin Time (Protime)PT. 23.9 SECONDS (11.7-14.9)
== END 2024-12-04 23:59 ==
LOC: BIMLAB 10:32
PROVIDERS: PCP Family Medicine; Referring Provider Family Medicine; Visit Provider Family Medicine
DX: I82.509 Chronic embolism and thrombosis of unspecified deep veins of unspecified lower extremity
CPT/HCPCS: 36415; 85610

== ENCOUNTER 2025-03-01 09:12 | Outpatient (RCR) | payer MEDICARE, SELFPAY ==
[2025-03-01 12:30] LABS: Prothrombin Time (Protime)PT. 31.3 SECONDS (11.7-14.9)
== END 2025-03-06 23:59 ==
LOC: BIMLAB 09:12
PROVIDERS: PCP Family Medicine; Referring Provider Family Medicine; Visit Provider Family Medicine
DX: I82.509 Chronic embolism and thrombosis of unspecified deep veins of unspecified lower extremity (principal)
CPT/HCPCS: 36415; 85610